=== PATIENT | female | born 1940 | race Caucasian/White ===

== ENCOUNTER 2020-02-24 23:20 | Emergency (ER) | payer MEDICARE, BC, SELFPAY ==
--- NOTE | ~2020-02-24 | XR_ITS ---
EXAMINATION: XR chest ET placement EXAM DATE: 02/25/2020 00:22 INDICATION: Endotracheal tube position. TECHNIQUE: Portable AP frontal chest x-ray was obtained. Comparison is made to prior examination from 02/24/2020. FINDINGS: Patient has been intubated. The endotracheal tube is at the dariela, should be retracted 2 cm. Both lungs are being aerated at present. There is a nasogastric tube seen with tip collimated off the study, but below the left hemidiaphragm. Moderately indistinct reticulation, likely developing edema and/or infection. Please clinically corre late. There are no sizable pleural effusions. There is no pneumothorax suspected. The cardiomedi astinal silhouette is prominent but magnified on this AP technique. The bones and soft tissues are unremarkable. The acute airspace process has demonstrated mild progression. IMPRESSION: 1. ET tube at dariela. If this was not positioned after reviewing this x-ray, recommend repeating por table chest x-ray at this time to reevaluate her in position. 2. Developing bilateral edema and/or infection. According to emergency room nurse, patient was taken to [facility]. Reviewed, dictated and finalized at location A. INE ASSISTANT IMPRESSION: 1. ET tube at dariela. If this was not positioned after reviewing this x-ray, r ecommend repeating portable chest x-ray at this time to reevaluate her in posit ion. 2. Developing bilateral edema and/or infection. According to emergency room nurse[facility]
--- NOTE | ~2020-02-24 | CT_ITS ---
EXAMINATION: CT brain wo con DATE: 02/24/2020 23:27 INDICATION: Stroke TECHNIQUE: Computed tomography (CT) of the head was performed without intravenous contrast. Sagittal and coronal reconstructions were performed. The mA was adjusted according to patient size. Iterative reconstruction technique was employed. The dose-length product was 681.00 mGy-cm. COMPARISON: None FINDINGS: Small region of cortical encephalomalacia consistent with chronic infarct in the posterior right fron angeles lobe. No acute intracranial hemorrhage, acute infarction or abnormal extra axial fluid collection . There is mild scattered white matter hypoattenuation consistent with chronic small vessel ischemic disease. Symmetric prominence of the sulci consistent with mild age-appropriate diffuse cerebral volu me loss. Ventricles are normal and symmetric. No mass/mass effect. Small mucous retention cyst in the left maxillary and left sphenoid sinuses. Mild mucosal thickening in the right maxillary and bilater al ethmoid sinuses. Changes of bilateral intraocular lens replacement. Mastoid air cells and middle e ar cavities are clear. Intracranial calcified cerebral atherosclerosis is noted. IMPRESSION: 1. No acute intracranial process. Per stroke protocol Dr. Hughes discussed these findings with Dr. Blas at 11:29 PM. 2. 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 3. Mild age-appropriate diffuse volume loss with mild scattered white matter hypoattenuation consiste nt with chronic small vessel ischemic disease. Reviewed, dictated and finalized at location A. D CARE SPECIALIST IMPRESSION: 1. No acute intracranial process. Per stroke protocol Dr. Hughes discussed th miguel findings with Dr. Blas at 11:29 PM. 2. 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 3. Mild age-appropriate diffuse volume loss with mild scattered white matter hy poattenuation consistent with chronic small vessel ischemic disease.
--- NOTE | ~2020-02-24 | XR_ITS ---
EXAMINATION: XR chest 1V portable DATE: 02/24/2020 23:47 INDICATION: Stroke TECHNIQUE: frontal view of the chest was obtained. COMPARISON: Chest radiograph dated 03/24/2005 FINDINGS: Patient is rotated towards the right. Focal small opacity lateral left lower lung zone and favor atel ectasis over pneumonia. No other airspace opacities, pulmonary edema, pleural effusion or pneumothora x. The cardiomediastinal silhouette is normal. IMPRESSION: 1. Small opacity at the left lower lung zone with appearance favoring atelectasis over pneumonia. Reviewed, dictated and finalized at location A. L MARKETING ASSISTANT IMPRESSION: 1. Small opacity at the left lower lung zone with appearance favoring atelectas is over pneumonia.
--- NOTE | ~2020-02-24 | XR_ITS ---
EXAMINATION: XR abdomen NG/feed tube insert EXAM DATE: 02/25/2020 00:22 INDICATION: Nasogastric tube. TECHNIQUE: Frontal projection(s) of the abdomen for interpretation. There is no prior study for raquel butt. FINDINGS: Feeding tube tip and side-port project over gastric body, expected position. Nonobstructive upper abdominal bowel gas pattern. IMPRESSION: Feeding tube in position. Reviewed, dictated and finalized at location A. ITURE MECHANIC IMPRESSION: Feeding tube in position.
--- NOTE | 2020-02-24 23:22 | ECG_ITS ---
Measurements Intervals [place] Rate: 84 P: IN: 0 QRS: 59 QRSD: 86 T: 108 QT: 380 QTc: 450 Interpretive Statements ATRIAL FIBRILLATION LOW QRS VOLTAGE IN PRECORDIAL LEADS BORDERLINE R WAVE PROGRESSION, ANTERIOR LEADS BASELINE ARTIFACT- I, II, III, AVR, AVL, AVF, V1-V3 ABNORMAL ECG Electronically Signed On 02-25-2020 6:49:59 CONTINUOUS PROCESS ROTARY DRUM TANNER by Juancarlos Carrizales D.O.
[2020-02-24 23:28] LABS: Glucose Point of Care 188 (65-105)
[2020-02-24 23:29] VITALS: BP 154/78; PULSE 76; RESP 18; TEMP 36.7; O2SAT 96
[2020-02-24 23:37] VITALS: BP 154/78; PULSE 81; RESP 16; O2SAT 97
--- NOTE | 2020-02-24 23:39 | ED.NEUROSD ---
HPI - Neuro Symptoms/Deficit General Chief Complaint: Suspected CVA Stated Complaint: CVA Source: family and EMS Mode of arrival: EMS Limitations: clinical condition History of Present Illness HPI Narrative: 79-year-old with a history of hypertension, diabetes, AF on Pradaxa was brought in from home with the complaints of left-sided weakness. As per the EMS patient was last known normal at 10:25 PM, was going down the stairs and stumbled and fell forward since then she has been weak on the left side. She has been aphasic with obvious right-sided gaze. Onset (ago): hour(s) (1) Timing confirmed by: spouse Location: left face, left arm and left leg History of same: Yes Severity: severe Quality: weak Relieving factors: none Exacerbating factors: none Context: sudden onset Related Data Allergies Allergy/AdvReac Type Severity Reaction Status Date / Time No Known Allergies Allergy Verified 02/25/20 00:14 Review of Systems Review of Systems: ROS unobtainable: Yes unobtainable due to mental status Exam Const: General: cooperative, alert and awake Nutritional Appearance: obese HENMT: Head: normal to inspection General nose exam: Normal external nose present Face and sinus: other (Left-sided facial droop with right-sided gaze) Mouth: Yes lip normal Teeth and gingiva: dentition normal Eyes: General: appearance normal, both eyes and all related structures Neck: Neck: normal visual inspection Chest: Chest palpation & inspection: normal inspection of the chest Resp: Effort & Inspection: normal respiratory effort Auscultation: clear to auscultation bilaterally Cardio: Jugular venous distension: no JVD Heart sounds: S1 normal heart sound present GI: Inspection: normal to inspection Auscultation: normal bowel sounds Course Course Emergency Course: Patient started having vomiting after she came back from CAT scan. Given IV Zofran in order to protect her airway decided to intubate the patient and discussed with Dr. [facility]. I discussed with neurologist recommended patient to be sent to the ER . Discussed and CT findings with the patient and the family agreed with transfer . Vital Signs Vital signs: Vital Signs Temperature 36.7 C 02/24/20 23:29 Pulse Rate 76 02/24/20 23:29 Respiratory Rate 18 02/24/20 23:29 Blood Pressure 154/78 H 02/24/20 23:29 Pulse Oximetry 96 02/24/20 23:29 Temperature 36.7 C 02/24/20 23:29 Pulse Rate 81 02/24/20 23:37 Respiratory Rate 16 02/24/20 23:37 Blood Pressure 154/78 H 02/24/20 23:37 Pulse Oximetry 97 02/24/20 23:37 Transfer Transfered to: [facility] Hospital Transportation: Air medical Transfer rationale: Patient needs acute intervention neck CTA of the head and neck for possible thrombectomy Accepting physician: lobar Procedures Intubation Intubation #1: Intubation Date: 02/25/20 Intubation Time: 00:18 sedative: Etomidate Mg Given: 20 paralytic: Succinylcholine Mg Given: 100 Laryngoscope: Siobhan (4) Tube Size (cm): 7.5 Method of Intubation: orotracheal Tube Secured Depth (cm): 23 Tube Secured Location: teeth Tube Placement Confirmation: visualized tube passing through cords Patient Tolerated Procedure: well Intubation Complications: none MDM - Neuro Symptoms/Deficit Differential Diagnosis Differential diagnosis: Unlikely carpal tunnel syndrome Lab Data Labs: Lab Results 02/24/20 Range/Units 23:23 POC Capillary Glucose 188 H (65-105) mg/dl Imaging Data Radiologist's impression: ITS Impressions Head CT 02/24/20 23:27 IMPRESSION: 1. No acute intracranial process. Per stroke protocol Dr. Hughes discussed these findings with Dr. Blas at 11:29 PM. 2. 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 3. Mild age-appropriate diffuse volume loss with mild scattered white matter hypoattenuation consistent with c
[2020-02-24 23:43] LABS: Basophils Percent Auto 0.7 % (0.2-1.2); Eosinophils Absolute Auto 0.3 K/mm3 (0-0.3); Eosinophils Percent Auto 4.6 % (0-4.4); Hematocrit 42.9 % (37.0-47.0); Hemoglobin 13.3 g/dL (12.0-15.0); Immature Granulocyte Absolute 0.01 K/mm3 (0.00-0.031); Immature Granulocyte Percent A 0.2 % (0-0.5); Lymphocytes Absolute Auto 1.51 K/mm3 (0.9-3.2); Lymphocytes Percent Auto 27.5 % (18.3-44.2); Mean Corpuscular Hemoglobin 26.8 pg (26-34); Mean Corpuscular Volume 86.5 fl (80-100); Mean Platelet Volume 10.6 fl (7.4-10.4); Monocytes Absolute Auto 0.5 K/mm3 (0.1-0.6); Monocytes Percent Auto 8.7 % (2.6-8.5); Neutrophils Absolute Auto 3.2 K/mm3 (1.3-6.7); Neutrophils Percent Auto 58.3 % (45.5-73.1); Platelet Count Result 197 k/mm3 (150-375); Red Blood Count 4.96 M/mm3 (4.2-5.4); Red Cell Distribution Width 14.5 % (11.5-14.5); White Blood Count 5.5 K/mm3 (4.5-10.0)
--- NOTE | 2020-02-24 23:43 | PC.NURSE ---
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
[2020-02-24 23:44] VITALS: BP 164/83; PULSE 83; RESP 16; O2SAT 95
[2020-02-24 23:53] LABS: INR 1.3; Prothrombin Time 16.3 Seconds (11.1-14.7)
[2020-02-24 23:54] LABS: Partial Thromboplastin Time 42.8 SECONDS (22.3-36.8)
[2020-02-24 23:56] LABS: Anion Gap 8 mmol/L (8-16); Blood Urea Nitrogen 20 mg/dL (7-17); Calcium 9.1 mg/dL (8.4-10.2); Carbon Dioxide 31 mmol/L (22-30); Chloride 99 mmol/L (98-107); Estimated CRCL calculation 63 ml/min; Estimated Glomerular Filt Rate > 60; Glucose 175 mg/dL (65-105); Potassium 4.5 mmol/L (3.4-5.0); Sodium 138 mmol/L (137-145)
--- NOTE | 2020-02-25 00:03 | PC.NURSE ---
0000- pt started vomiting, MD at bedside, pt to be intubated for airway protection.
--- NOTE | 2020-02-25 00:04 | PC.NURSE ---
0003 20mg etomidate given followed by 100md Succs. pt bagged and Dr. Mccann intubated on first try. 7.5 tube at 25 at the lips. pos color change on CO2 .
[2020-02-25] MEDS: ONDANSETRON INJ 4 MG/2 ML VIAL (00:07)
[2020-02-25 00:09] LABS: Troponin I < 0.012 ng/mL (0.000-0.034)
[2020-02-25] MEDS: MIDAZOLAM HCL (*CRX) 2 MG/2 ML VIAL 4 MG IV PUSH (00:17)
[2020-02-25] MEDS: RAPID SEQUENCE INTUBATION KIT 1 EACH (00:17)
--- NOTE | 2020-02-25 00:17 | PC.NURSE ---
Air transport team arrived, report called to Vandana Couch at [facility] ER, pt to be air evacted. meds given for sedation per Dr. Mccann.
[2020-02-25] MEDS: fentaNYL CITRATE INJ (*CRX) 100 MCG/2 ML VIAL 50 MCG IV PUSH (00:18)
--- NOTE | 2020-02-25 00:28 | PCRCNOTE ---
CALLED TO ED 7 FOR INTUBATION FOR AIRWAY PROTECTION. PT INTUBATED WITH 7.5 ETT, 26@LIP. POST CXR, ETT PULLED BACK TO 25CM AT LIP. AIREVAC PLACED PT ON THEIR TRANSPORT VENT.
[2020-02-25 00:40] VITALS: BP 181/98; PULSE 88; RESP 16; TEMP 36.7; O2SAT 97
== END 2020-02-25 00:42 | disposition short-term general hospital (02) ==
PROVIDERS: Emergency Provider Family Medicine; PCP Internal Medicine
DX: I63.9 Cerebral infarction, unspecified (principal); R29.718 NIHSS score 18; I10 Essential (primary) hypertension; E11.9 Type 2 diabetes mellitus without complications; Z79.02 Long term (current) use of antithrombotics/antiplatelets; I48.91 Unspecified atrial fibrillation; R94.31 Abnormal electrocardiogram [ECG] [EKG]; R91.8 Other nonspecific abnormal finding of lung field
CPT/HCPCS: 31500; 36415; 51702; 70450; 71045; 80048; 82948; 84484; 85025; 85610; 85730; 93005; 96374; 96375; 99291; J0330; J2250; J2405; J3010; J7030; J7120

== ENCOUNTER 2020-10-31 13:56 | Inpatient (IN) | payer MEDICARE, BC, SELFPAY ==
[2020-10-31] VITALS (11 sets, daily range): BP systolic 125–181; BP diastolic 66–96; PULSE 72–89; RESP 17–23; TEMP 36.4–36.7; O2SAT 94–100; BMI 34.7
--- NOTE | ~2020-10-31 | XR_ITS ---
EXAMINATION: XR chest 1V portable INDICATION: Shortness of breath TECHNIQUE: Portable AP chest at 0800 hours COMPARISON: 10/31/2020 FINDINGS: Cardiomegaly is noted. The lungs are free of acute opacities. There is no pleural effusion or pneumothorax. There is a questionable inferior dislocation of the left humeral head. IMPRESSION: 1. Cardiomegaly. 2. Possible inferior dislocation of the left humerus. Reviewed, dictated and finalized at location A.
--- NOTE | ~2020-10-31 | XR_ITS ---
EXAMINATION: XR chest 2V DATE: 10/31/2020 14:17 INDICATION: Cough and congestion TECHNIQUE: PA and lateral views of the chest are obtained. COMPARISON: 02/25/2020 FINDINGS: The lungs are free of acute opacities. There is no pleural effusion or pneumothorax. Cardio megaly is noted. The spine and lower lung zones are difficult to evaluate on the lateral view due to the patient's overlying arm. IMPRESSION: 1. Cardiomegaly. Reviewed, dictated and finalized at location B. IMPRESSION: 1. Cardiomegaly.
--- NOTE | ~2020-10-31 | XR_ITS ---
EXAMINATION: XR humerus LT DATE: 11/05/2020 09:59 INDICATION: Possible inferior dislocation of the left humerus. TECHNIQUE: Internal and axillary rotated views of the left humerus were obtained. COMPARISON: None. FINDINGS: Alignment is normal. No fracture. Moderate left acromioclavicular osteoarthritis. No left elbow joint effusion. Soft tissues are unremarkable. Visualized portion of the left lung are clear. IMPRESSION: 1. Normal alignment of the left shoulder. Appearance on prior chest radiograph likely related to watkins sient subluxation due to glenohumeral laxity. Reviewed, dictated and finalized at location A. IMPRESSION: 1. Normal alignment of the left shoulder. Appearance on prior chest radiograph likely related to transient subluxation due to glenohumeral laxity.
--- NOTE | ~2020-10-31 | CT_ITS ---
EXAMINATION: CTA chest PE protocol DATE: 10/31/2020 15:30 INDICATION: Shortness of breath, dyspnea, cough TECHNIQUE: Computed tomography angiography (CTA) of the chest was performed with 100 mL Omnipaque-350 intravenous contrast timed to evaluate the pulmonary arteries. Coronal maximum intensity projection 3D-reconstructions were created by the technologist. Automated exposure control and iterative reconst ruction technique were employed. Exam dose: 836.62 mGy-cm total exam DLP. COMPARISON: 10/31/2020 2 view chest FINDINGS: There is diagnostic contrast enhancement of the pulmonary arteries. No pulmonary embolus is identified. No thoracic aortic aneurysm or dissection. There is extensive thoracic aortic as well as some great v essel and prominent coronary artery calcifications. Cardiomegaly. Small amount of pericardial fluid. No hilar or mediastinal mass lesion or lymphadenopathy. There is atelectasis at the left lung base. Very small sliding hiatal hernia. Diffuse idiopathic skeletal hyperostosis of the thoracic spine. IMPRESSION: No evidence of pulmonary embolism Cardiomegaly Reviewed, dictated and finalized at [facility]. Reviewed, dictated and finalized at [facility].
--- NOTE | ~2020-10-31 | XR_ITS ---
EXAMINATION: XR barium swallow modified DATE: 11/02/2020 09:36 INDICATION: Dysphagia. Gurgling, cough. TECHNIQUE: The patient was given barium-containing material of multiple consistencies to swallow by leslie toth speech pathologist while I performed fluoroscopy. Dose-area product was 2.277 Gy-cm2. 2.5 minutes fluoroscopy time FINDINGS: Oral Stage: Within functional limits Pharyngeal Phase: Within functional limits Cervical/Esophageal Stage: Within functional limits IMPRESSION: Modified esophagram findings as above. Please refer to the speech [facility] report [facility] Reviewed, dictated and finalized at [facility]. Reviewed, dictated and finalized at [facility]. IMPRESSION: Modified esophagram findings as above. Please refer to the speech t herapy report for specific recommendations.
--- NOTE | 2020-10-31 14:02 | ECG_ITS ---
Measurements Intervals [place] Rate: 84 P: MT: 0 QRS: -10 QRSD: 75 T: -30 QT: 311 QTc: 369 Interpretive Statements ATRIAL FIBRILLATION BORDERLINE R WAVE PROGRESSION, ANTERIOR LEADS INFERIOR INFARCT, AGE INDETERMINATE ABNORMAL ECG Electronically Signed On 10-31-2020 14:48:39 CDT by Juancarlos Carrizales D.O.
[2020-10-31 14:49] LABS: Basophils Percent Auto 0.5 % (0.2-1.2); Eosinophils Absolute Auto 0.2 K/mm3 (0-0.3); Hematocrit 37.9 % (37.0-47.0); Immature Granulocyte Absolute 0.02 K/mm3 (0.00-0.031); Immature Granulocyte Percent A 0.3 % (0-0.5); Lymphocytes Absolute Auto 0.69 K/mm3 (0.9-3.2); Mean Corpuscular Hemoglobin 23.6 pg (26-34); Mean Corpuscular Volume 81.3 fl (80-100); Mean Platelet Volume 11.1 fl (7.4-10.4); Monocytes Absolute Auto 0.5 K/mm3 (0.1-0.6); Monocytes Percent Auto 8.9 % (2.6-8.5); Neutrophils Absolute Auto 4.3 K/mm3 (1.3-6.7); Neutrophils Percent Auto 75.3 % (45.5-73.1); Platelet Count Result 210 k/mm3 (150-375); Red Blood Count 4.66 M/mm3 (4.2-5.4); Red Cell Distribution Width 17.2 % (11.5-14.5); White Blood Count 5.7 K/mm3 (4.5-10.0)
--- NOTE | 2020-10-31 14:59 | ED.SOB ---
HPI - SOB/Dyspnea General Chief Complaint: Shortness of Breath/Dyspnea Stated Complaint: SOB Time Seen by Provider: 10/31/20 14:04 History of Present Illness HPI Narrative: Patient presents with shortness of breath. Reports she has had a sore throat for the past couple days which got progressively worse and associated with a cough. She reports she noticed a lot of rattling when she is breathing. She denies any focal areas of pain she denies any dizziness denies any chest pain she denies any lightheadedness or fevers. Reports prior history of CVA and has persistent left-sided weakness she denies any known history of difficulty swallowing or aspiration. Related Data Allergies Allergy/AdvReac Type Severity Reaction Status Date / Time No Known Allergies Allergy Verified 02/25/20 00:14 Review of Systems Review of Systems: CONSTITUTIONAL: Denies fever, chills, or sweats. EYES: Denies visual changes, redness, or discharge. ENT: Denies rhinorrhea, congestion, sore throat, or otalgia. CARDIOVASCULAR: Denies chest pain, palpitations, or edema. RESPIRATORY: Reports cough and dyspnea GASTROINTESTINAL: Denies abdominal pain, nausea, vomiting, or diarrhea. GENITOURINARY: Denies dysuria or hematuria. SKIN: Denies rash or itching. MUSCULOSKELETAL: Denies back pain, joint pain, or myalgia. NEUROLOGIC: Denies headache, numbness, dizziness, or weakness. PSYCHIATRIC: Denies anxiety or depression. All systems reviewed & are unremarkable except as noted in HPI and below Exam Narrative: GENERAL: Well-appearing, well-nourished, and in no acute distress. HEAD: Normocephalic, atraumatic. EYES: PERRLA and EOMI. ENT: Nares clear, no rhinorrhea or epistaxis. Mucous membranes moist. NECK: Supple. No masses. No JVD CHEST: Diffusely rhonchorous no respiratory distress no retractions HEART: Regular rate and rhythm. No murmur heard. Normal peripheral pulses. ABDOMEN: Soft, nontender, nondistended, normal active bowel sounds. EXTREMITIES: Normal range of motion. No edema. SKIN: Warm, dry, no rash. NEURO: No focal deficits. Alert and oriented x3. PSYCH: Normal mood and affect. Course Vital Signs Vital signs: Vital Signs Temperature 36.6 C 10/31/20 14:02 Pulse Rate 79 10/31/20 14:02 Respiratory Rate 23 H 10/31/20 14:02 Blood Pressure 125/88 10/31/20 14:02 Pulse Oximetry 95 10/31/20 14:02 Temperature 36.7 C 10/31/20 14:26 Pulse Rate 88 10/31/20 14:05 Respiratory Rate 23 H 10/31/20 14:02 Blood Pressure 181/96 H 10/31/20 14:26 Pulse Oximetry 95 10/31/20 14:06 MDM - SOB/Dyspnea Lab Data Result diagrams: 10/31/20 14:37 10/31/20 14:37 Labs: Lab Results 10/31/20 10/31/20 Range/Units 14:37 14:37 WBC Pending RBC Pending Hgb Pending Hct Pending MCV Pending MCH Pending MCHC Pending RDW Pending Plt Count Pending MPV Pending Immature Gran % (Auto) Pending Neut % (Auto) Pending Lymph % (Auto) Pending [place] % (Auto) Pending Eos % (Auto) Pending Baso % (Auto) Pending Lymph # (Auto) Pending [place] # (Auto) Pending Eos # (Auto) Pending Baso # (Auto) Pending Abs Immat Gran (auto) Pending Absolute Neuts (auto) Pending Absolute Nucleated RBC Pending Nucleated RBC % Pending Sodium Pending Potassium Pending Chloride Pending Carbon Dioxide Pending Anion Gap Pending BUN Pending Creatinine Pending Estim Creat Clear Calc Pending Estimated GFR Pending Glucose Pending Calcium Pending
[2020-10-31 15:00] LABS: Anion Gap 4 mmol/L (8-16); Blood Urea Nitrogen 17 mg/dL (7-17); Calcium 8.8 mg/dL (8.4-10.2); Carbon Dioxide 31 mmol/L (22-30); Chloride 105 mmol/L (98-107); Estimated CRCL calculation 70 ml/min; Estimated Glomerular Filt Rate > 60; Glucose 110 mg/dL (65-110); Potassium 3.9 mmol/L (3.4-5.0); Sodium 140 mmol/L (137-145)
--- NOTE | 2020-10-31 15:15 | ED.SOB ---
HPI - SOB/Dyspnea General Chief Complaint: Shortness of Breath/Dyspnea Stated Complaint: SOB Time Seen by Provider: 10/31/20 14:04 History of Present Illness HPI Narrative: Please see first note for HPI review of system and exam Related Data Allergies Allergy/AdvReac Type Severity Reaction Status Date / Time No Known Allergies Allergy Verified 02/25/20 00:14 Course Reevaluation(s) Reevaluation #1: Patient had no response to DuoNeb therapy she continues to have an oxygen requirement. Hospitalist team was consulted for hypoxia who admit for further management Date: 10/31/20 Time: 17:34 Vital Signs Vital signs: Vital Signs Temperature 36.6 C 10/31/20 14:02 Pulse Rate 79 10/31/20 14:02 Respiratory Rate 23 H 10/31/20 14:02 Blood Pressure 125/88 10/31/20 14:02 Pulse Oximetry 95 10/31/20 14:02 Temperature 36.7 C 10/31/20 14:26 Pulse Rate 83 10/31/20 18:00 Respiratory Rate 20 10/31/20 18:00 Blood Pressure 146/66 H 10/31/20 18:00 Pulse Oximetry 100 10/31/20 18:00 MDM - SOB/Dyspnea MDM Narrative Medical decision making narrative: H&P as above, vs with hypoxia and increased respiratory rate, pt looks clinically well, exam with diffuse rhonchi, labs with elevated BNP, img with cardiomegaly, additional labs/img considered, symptomatic relief available as needed, on reevaluation pt continues to looks clinically well however continues to have an increased oxygen requirement. With elevated BNP imaging with cardiomegaly and hypoxia primary concern is for new onset CHF. Patient admitted for further management. Lab Data Result diagrams: 10/31/20 14:37 10/31/20 14:37 Labs: Lab Results 10/31/20 10/31/20 10/31/20 Range/Units 14:37 14:37 14:37 WBC 5.7 (4.5-10.0) K/mm3 RBC 4.66 (4.2-5.4) M/mm3 Hgb 11.0 L (12.0-15.0) g/dL Hct 37.9 (37.0-47.0) % MCV 81.3 (80-100) fl MCH 23.6 L (26-34) pg MCHC 29.0 L (32-36) g/dl RDW 17.2 H (11.5-14.5) % Plt Count 210 (150-375) k/mm3 MPV 11.1 H (7.4-10.4) fl Immature Gran % (Auto) 0.3 (0-0.5) % Neut % (Auto) 75.3 H (45.5-73.1) % Lymph % (Auto) 12.0 L (18.3-44.2) % [place] % (Auto) 8.9 H (2.6-8.5) % Eos % (Auto) 3.0 (0-4.4) % Baso % (Auto) 0.5 (0.2-1.2) % Lymph # (Auto) 0.69 L (0.9-3.2) K/mm3 [place] # (Auto) 0.5 (0.1-0.6) K/mm3 Eos # (Auto) 0.2 (0-0.3) K/mm3 Baso # (Auto) 0.0 (0.0-0.1) K/mm3 Abs Immat Gran (auto) 0.02 (0.00-0.031) K/mm3 Absolute Neuts (auto) 4.3 (1.3-6.7) K/mm3 Absolute Nucleated RBC 0.0 (0.0-0.012) K/mm3 Nucleated RBC % 0.0 (0.0-0.2) % Platelet Estimate Adequate (Adequate) Hypochromasia 1+ (NORMAL) Anisocytosis 2+ (NORMAL) PT 16.5 H (11.1-14.7) Seconds INR 1.4 APTT 39.6 H (22.3-36.8) SECONDS Sodium 140 (137-145) mmol/L Potassium 3.9 (3.4-5.0) mmol/L Chloride 105 (98-107) mmol/L Carbon Dioxide 31 H (22-30) mmol/L Anion Gap 4 L (8-16) mmol/L BUN 17 (7-17) mg/dL Creatinine 0.60 L (0.7-1.0) mg/dL Estim Creat Clear Calc 70 ml/min Estimated GFR > 60 (59 - ) Glucose 110 (65-110) mg/dL Calcium 8.8 (8.4-10.2) mg/dL Total Bilirubin (0.2-1.3) mg/dL Direct Bilirubin (0-0.3) mg/dL AST (14-36) U/L ALT (4-35) U/L Alkaline Phosphatase (38-126) U/L Troponin I (0.000-0.034) ng/mL NT-Pro-B Natriuret Pep (5-100) pg/mL Total Protein (6.3-8.2) g/dL Albumin (3.5-5.1) g/dL 10/31/20 10/31/20 Range/Units 14:37 17:49 WBC (4.5-10.0) K/mm3 RBC (4.2-5.4) M/mm3 Hgb (12.0-15.0) g/dL Hct (37.0-47.0) % MCV (80-100) fl MCH (26-34) pg MCHC (32-36) g/dl RDW (11.5-14.5) % Plt Count (150-375) k/mm3 MPV (7.4-10.4) fl Immature Gran % (Auto) (0-0.5) % Neut % (Auto) (45.5-73.1) % Lymph % (Auto) (18.3-44.2) % [place] % (Auto) (2.6-8.5) % Eos % (Auto)
[2020-10-31 15:20] LABS: Hypochromasia 1+ (NORMAL); Platelet Estimate Adequate (Adequate)
[2020-10-31 15:21] LABS: Anisocytosis 2+ (NORMAL)
[2020-10-31 15:53] LABS: Alanine Aminotransferase 12 U/L (4-35); Albumin Level 3.5 g/dL (3.5-5.1); Alkaline Phosphatase 110 U/L (38-126); Aspartate Amino Transferase 23 U/L (14-36); Bilirubin,Total 0.5 mg/dL (0.2-1.3)
[2020-10-31 16:05] LABS: NT Pro B Type Natriuretic Pept 849 pg/mL (5-100); Troponin I < 0.012 ng/mL (0.000-0.034)
[2020-10-31] MEDS: ALBUTEROL SULFATE NEB 2.5 MG/0.5 ML INH 5 MG INHALATION (16:29)
[2020-10-31] MEDS: IPRATROPIUM BR 0.02% INH SOLN 0.5 MG/2.5 ML VIAL INHALATION (16:29)
[2020-10-31 17:02] LABS: INR 1.4; Prothrombin Time 16.5 Seconds (11.1-14.7)
[2020-10-31 17:03] LABS: Partial Thromboplastin Time 39.6 SECONDS (22.3-36.8)
[2020-10-31] MEDS: FUROSEMIDE INJ 40 MG/4 ML VIAL IV PUSH (18:00)
[2020-10-31 18:18] LABS: Troponin I < 0.012 ng/mL (0.000-0.034)
--- NOTE | 2020-10-31 21:37 | PM.IMHP ---
H&P: HPI History of Present Illness Date/Time: 10/31/20 20:15 Chief Complaint: Rattling in my chest Narrative: 80-year-old female with past medical history of prior tobacco abuse obstructive sleep apnea, hypertension, hyperlipidemia, and CVA with left-sided hemiplegia who presented to the ER from home via EMS due to rattling in her chest. She denies a past medical history of CHF or COPD but did have a prior 44 part per year smoking history. She reports 3 days of feeling rattling in her chest. She had a cough productive of abdi to greenish sputum. She denies any fevers or chills. She denies any recent ill contacts. She denies any chest pain or palpitations. She has not noticed any increased lower extremity swelling. She is bedbound chronically since she was discharged home in April following her CVA in February. She does note some dysuria after [place] catheter was placed in the ER. She uses a bedpan at home. she reports that she has only been having bowel movements every 5 days. She denies any abdominal pain, hematochezia or melena. She denies any nausea or vomiting. She has not noticed any difficulty with his swallowing, coughing or choking while eating. Review of Systems Review of Systems: 12 systems were reviewed with pertinent positives and negatives per HPI. Except as documented in the HPI, all other systems were reviewed and are negative. 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 Kevon Carvalho Code status: Full code Surrogate decision maker: Smoking packs per day: 1 Smoking cigarettes per day: 20.0 Years smoked: 44 Smoking pack-years: 44.00 Smoking status: Former smoker Tobacco type: cigarettes Alcohol intake: never Substance use: never Living arrangements: with family Additional living arrangements comments: The patient lives at home with her of 59 years. She is bed-bound since her stroke in February 2020. They have 2 children are healthy. 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 Spiritual care concerns: No Meds Home Medications and Allergies Home Medications Medication Instructions Recorded Confirmed Type apixaban [Eliquis] 5 mg PO BID 10/31/20 10/31/20 History aspirin 81 mg PO DAILY 10/31/20 10/31/20 History atorvastatin 10 mg PO DAILY 10/31/20 10/31/20 History baclofen 10 mg PO TID 10/31/20 10/31/20 History famotidine 40 mg PO DAILY 10/31/20 10/31/20 History fluoxetine 40 mg PO DAILY 10/31/20 10/31/20 History gabapentin 100 mg PO TID 10/31/20 10/31/20 History insulin glargine [Lantus Solostar 35 unit SUBCUT DAILY 10/31/20 10/31/20 History U-100 Insulin] levothyroxine 50 mcg PO DAILY 10/31/20 10/31/20 History lisinopril 40 mg PO DAILY 10/31/20 10/31/20 History metoprolol tartrate 12.5 mg PO BID 10/31/20 10/31/20 History ramelteon 8 mg PO HS 10/31/20 10/31/20 History spironolactone 12.5 mg PO DAILY 10/31/20 10/31/20 History Allergies Allergy/AdvReac Type Severity Reaction Status Date / Time No Known Allergies Allergy Verified 02/25/20 00:14 Vital Signs Vital Signs - 24 hr 10/31/20 14:02 10/31/20 14:05 10/31/20 14:06 Temperature 97.9 F Pulse Rate
--- NOTE | 2020-10-31 21:42 | ADMGEN ---
This patient, Kristy Cook, was admitted to Medical Room 346-01. Patient/family oriented to hospital policies and general routines including ID bracelet, bed and alarms, visiting hours, pain management, procedures, bathroom and other care routines, personal items, smoking policy, room service/diet, and visiting hours. Information on how to activate the Rapid Response Team has been discussed. Patient/Family are encouraged to report perceived risks to care and to ask questions if they do not understand what they are told or what they should do.
[2020-10-31 22:05] LABS: Glucose Point of Care 144 mg/dl (65-105)
[2020-10-31] MEDS: METOPROLOL TARTRATE 12.5 MG TABLET PO (23:07)
[2020-10-31] MEDS: APIXABAN 5 MG TABLET PO (23:07)
[2020-11-01] VITALS (12 sets, daily range): BP systolic 148–152; BP diastolic 61–88; PULSE 78–90; RESP 18–19; TEMP 36.7–37.2; O2SAT 92–97; BMI 34.7
--- NOTE | 2020-11-01 | ECHO_ITS ---
Patient Info Name: Kristy Cook Age: 80 years : 1940 Gender: Female Ht: 64 in Wt: 201 lbs BSA: 2.07 m2 HR: 85 bpm BP: 151 / 84 mmHg Heart Rhythm: Atrial Fibrillation Exam Date: 11/01/2020 11:43 AM Exam Location: [facility] Patient Status: Inpatient Admit Date: 10/31/2020 Staff Ordering Physician: Tatyana Farah PA-C Pilot Plant Operator: Erik Mccarty RDCS, RT Attending Provider: Tatyana Farah PA-C Exam Type: CA echo doppler color flow Study Info Complete two-dimensional, color flow and Doppler transthoracic echocardiogram is performed. Strain analysis performed. Summary 1. Complete two-dimensional, color flow and Doppler transthoracic echocardiogram is performed. 2. Technically difficult study with limited views. Regional wall motion assessment limited due to poor endomyocardial border definition in several views. 3. Left ventricular chamber dimension is normal. 4. Left ventricular systolic function is normal, estimated at 55-60%. 5. There is mildly increased left ventricular wall thickness. 6. There is mild to moderate aortic valve stenosis with a peak velocity of 181 cm/s, mean gradient of 7 mmHg, and aortic valve area of 1.4 cm2. 7. There is trace tricuspid valve regurgitation. 8. Unable to estimate PA systolic pressure due to poor spectral resolution of tricuspid regurgitant jet velocity. Left Ventricle Technically difficult study with limited views. Regional wall motion assessment limited due to poor endomyocardial border definition in several views. Left ventricular chamber dimension is normal. Left ventricular systolic function is normal, estimated at 55-60%. There is mildly increased left ventricular wall thickness. The left ventricular diastolic function is indeterminate. Global longitudinal strain is moderately elevated at -7 %. Right Ventricle Right ventricular chamber dimension is normal. Right ventricular systolic function is normal. Left Atria Left atrial chamber dimension is normal. Right Atria Right atrial chamber dimension is normal. Aortic Valve The aortic valve is not well visualized. There is mild to moderate aortic valve stenosis with a peak velocity of 181 cm/s, mean gradient of 7 mmHg, and aortic valve area of 1.4 cm2. There is no aortic valve regurgitation. There is mild aortic valve calcification. Pulmonic Valve The pulmonic valve is not well visualized. Mitral Valve The mitral valve has normal leaflets. There is trace mitral valve regurgitation. Tricuspid Valve The tricuspid valve leaflets are normal. There is trace tricuspid valve regurgitation. Unable to estimate PA systolic pressure due to poor spectral resolution of tricuspid regurgitant jet velocity. Pericardium/Pleural The pericardium appears normal. There is trivial pericardial effusion. Inferior Vena Cava Normal inferior vena cava with <50% collapse upon inspiration consistent with elevated right atrial pressure, 10 mmHg. Aorta The aortic root size at the sinus of Valsalva is normal. Left Ventricular Outflow Tract Name Value Normal LVOT 2D LVOT Diameter 2.0 cm LVOT Doppler LVOT Peak
[2020-11-01] MEDS: LEVOTHYROXINE SODIUM 50 MCG TABLET PO (06:19)
[2020-11-01 07:57] LABS: Glucose Point of Care 120 mg/dl (65-105)
[2020-11-01] MEDS: FAMOTIDINE 20 MG TABLET 40 MG PO (08:15)
[2020-11-01] MEDS: FLUoxetine HCL 20 MG CAPSULE 40 MG PO (08:16)
[2020-11-01] MEDS: lisinopriL 20 MG TABLET 40 MG PO (08:19)
[2020-11-01] MEDS: GABAPENTIN 100 MG CAPSULE PO ×3 (08:20→18:04)
[2020-11-01] MEDS: BACLOFEN 10 MG TABLET PO ×3 (08:20→18:04)
[2020-11-01] MEDS: ASPIRIN 81 MG ENTERIC TABLET PO (08:20)
[2020-11-01] MEDS: ATORVASTATIN 10 MG TABLET PO (08:20)
[2020-11-01] MEDS: APIXABAN 5 MG TABLET PO ×2 (08:21→20:57)
[2020-11-01] MEDS: SPIRONOLACTONE 12.5 MG TABLET PO (08:21)
[2020-11-01] MEDS: METOPROLOL TARTRATE 12.5 MG TABLET PO ×2 (08:22→20:57)
[2020-11-01] MEDS: INSULIN GLARGINE (*BKC) 100 UNITS/ML 25 UNITS SUB-Q (08:31)
[2020-11-01 12:44] LABS: Glucose Point of Care 122 mg/dl (65-105)
--- NOTE | 2020-11-01 15:46 | PM.IMPN ---
Progress Note: A&P Assessment and Plan (1) Dyspnea: Qualifiers: Dyspnea type: shortness of breath Qualified Code(s): R06.02 - Shortness of breath Code(s): R06.00 - Dyspnea, unspecified Status: Acute Assessment and Plan: Presented with dyspnea and rattling in chest. Symptomatic improvement with Lasix, suggestive of CHF, however echo reviewed with normal EF 55-60% Persistent upper airway gurgling concerning for aspiration. She is at high risk for aspiration given her CVA. Will obtain MBS CXR and CTA without opacities or other findings to suggest infection. She is afebrile without leukocytosis. She has required 2 L supplemental O2, though no episodes of hypoxia have been documented. Currently on 0.5 L. Wean as tolerated with goal saturation 92% or above. The patient does have obstructive sleep apnea for which she refuses CPAP. (2) Diabetes mellitus: Qualifiers: Diabetes mellitus type: type 2 Diabetes mellitus jail insulin use: with jail use Diabetes mellitus complication status: with hypoglycemia Diabetes mellitus complication detail: without coma Qualified Code(s): E11.649 - Type 2 diabetes mellitus with hypoglycemia without coma; Z79.4 - [facility] (current) use of insulin Code(s): E11.9 - Type 2 diabetes mellitus without complications Status: Acute Assessment and Plan: Last A1c unknown. Blood sugars reviewed and have been fairly well controlled in the 120s. Reports episodes of hypoglycemia at home with fasting glucose in the 40s-50s. Lantus has been decreased to 25 units daily Continue Accu-Cheks, sliding scale insulin, and hypoglycemic protocol Check A1c (3) Atrial fibrillation: Code(s): I48.91 - Unspecified atrial fibrillation Status: Inactive Assessment and Plan: Rate is controlled Continue metoprolol 12.5 mg b.i.d. Continue Eliquis Subjective Date/time seen: 11/01/20 15:46 Interval history: Date of service: 11/01/2020 Kristy Cook is a 72-year-old female with history of atrial fibrillation on chronic anticoagulation, CVA with left-sided hemiplegia, diabetes mellitus, hypertension, hyperlipidemia, hypothyroidism, and BARRY who is seen in follow-up for dyspnea. She complains of gurgling in her throat. She has been coughing frequently and reports yellow-green sputum. Denies shortness of breath or chest pain. No nausea, vomiting, fever, or chills. No issues with her Guaman catheter. Denies abdominal pain. Denies dizziness or lightheadedness. Spoke with RN he reports she has been doing well with her meals. She is able to eat with assistance, no coughing or choking with meals. Review of Systems Review of Systems: All systems reviewed & are unremarkable except as noted in HPI and below Exam Narrative: Ms Cook is a well-nourished, chronically ill-appearing 80-year-old female who is lying supine in bed. She appears comfortable and is in NARD. Neuro: awake, alert and oriented x4, speech clear, left upper extremity is flaccid, decreased seam stay stitcher strength of right upper extremity HEENMT: normocephalic, atraumatic, EOMI, sclerae anicteric, moist oral mucosa, tongue midline, nares patent Neck: supple, no lymphadenopathy Respiratory: Gurgling in upper airway, lung sounds clear bilaterally, nonlabored breathing Cardio: regular rate, regular rhythm with S1-S2 Abdomen: nondistended, normoactive bowel sounds, soft, nontender to palpation : Guaman catheter patent draining straw-colored urine Extremities: no edema, erythema, or tenderness to palpation, DP pulses 2+ bilaterally Skin: no rashes or lesions, warm and dry Psych: appropriate mood and affect, judgment and insight intact Objective Data Vital Signs Vital Signs: Vital Signs - 24 hr 10/31/20 16:29 10/31/20 16:40 10/31/20 18:00 Temperature Pulse Rate 81 79 83 Respiratory Rate 20 23 H 20 Blood Pressure 146/66 H Pulse Oximetry 100 10/31
[2020-11-01 17:40] LABS: Glucose Point of Care 132 mg/dl (65-105)
[2020-11-01 20:46] LABS: Glucose Point of Care 127 mg/dl (65-105)
[2020-11-02] VITALS (10 sets, daily range): BP systolic 147–162; BP diastolic 83–92; PULSE 80–97; RESP 18–20; TEMP 35.9–37.1; O2SAT 96–99
[2020-11-02] MEDS: LEVOTHYROXINE SODIUM 50 MCG TABLET PO (05:34)
[2020-11-02 06:13] LABS: Hemoglobin 10.9 g/dL (12.0-15.0); Mean Corpuscular HGB Conc 30.3 g/dl (32-36); Mean Corpuscular Hemoglobin 23.9 pg (26-34); Mean Corpuscular Volume 78.9 fl (80-100); Mean Platelet Volume 11.2 fl (7.4-10.4); Platelet Count Result 208 k/mm3 (150-375); Red Blood Count 4.56 M/mm3 (4.2-5.4); Red Cell Distribution Width 16.9 % (11.5-14.5); White Blood Count 5.5 K/mm3 (4.5-10.0)
[2020-11-02 06:23] LABS: Anion Gap 5 mmol/L (8-16); Blood Urea Nitrogen 20 mg/dL (7-17); Calcium 8.7 mg/dL (8.4-10.2); Carbon Dioxide 30 mmol/L (22-30); Chloride 101 mmol/L (98-107); Estimated CRCL calculation 85 ml/min; Estimated Glomerular Filt Rate > 60; Glucose 104 mg/dL (65-110); Potassium 3.5 mmol/L (3.4-5.0); Sodium 136 mmol/L (137-145)
[2020-11-02 06:42] LABS: Hemoglobin A1C 5.2 % (<5.7)
[2020-11-02 07:34] LABS: Glucose Point of Care 107 mg/dl (65-105)
[2020-11-02] MEDS: FAMOTIDINE 20 MG TABLET 40 MG PO (08:02)
[2020-11-02] MEDS: ATORVASTATIN 10 MG TABLET PO (08:02)
[2020-11-02] MEDS: APIXABAN 5 MG TABLET PO ×2 (08:02→20:43)
[2020-11-02] MEDS: METOPROLOL TARTRATE 12.5 MG TABLET PO ×2 (08:02→20:48)
[2020-11-02] MEDS: SPIRONOLACTONE 12.5 MG TABLET PO (08:02)
[2020-11-02] MEDS: lisinopriL 20 MG TABLET 40 MG PO (08:02)
[2020-11-02] MEDS: GABAPENTIN 100 MG CAPSULE PO ×2 (08:03→17:13)
[2020-11-02] MEDS: BACLOFEN 10 MG TABLET PO ×2 (08:03→17:13)
[2020-11-02] MEDS: FLUoxetine HCL 20 MG CAPSULE 40 MG PO (08:03)
[2020-11-02] MEDS: INSULIN GLARGINE (*BKC) 100 UNITS/ML 25 UNITS SUB-Q (08:10)
[2020-11-02] MEDS: ASPIRIN 81 MG ENTERIC TABLET PO (08:11)
--- NOTE | 2020-11-02 08:58 | PC.NURSE ---
Patient taken down for a barium swallow study.
--- NOTE | 2020-11-02 09:25 | PCSTNOTE ---
Please refer to the Modified Barium Swallow Evaluation in the EMR.
[2020-11-02 11:39] LABS: Glucose Point of Care 194 mg/dl (65-105)
--- NOTE | 2020-11-02 15:55 | PM.IMPN ---
Progress Note: A&P Assessment and Plan (1) Dyspnea: Qualifiers: Dyspnea type: shortness of breath Qualified Code(s): R06.02 - Shortness of breath Code(s): R06.00 - Dyspnea, unspecified Status: Acute Assessment and Plan: Improved with with Lasix, suggestive of CHF, however echo reviewed with normal EF 55-60% Concern for aspiration S/p MBS with negative results CXR and CTA with no acute disease, afebrile without leukocytosis Now on RA The patient does have obstructive sleep apnea for which she refuses CPAP (2) Diabetes mellitus: Qualifiers: Diabetes mellitus type: type 2 Diabetes mellitus senior living insulin use: with senior living use Diabetes mellitus complication status: with hypoglycemia Diabetes mellitus complication detail: without coma Qualified Code(s): E11.649 - Type 2 diabetes mellitus with hypoglycemia without coma; Z79.4 - half-way (current) use of insulin Code(s): E11.9 - Type 2 diabetes mellitus without complications Status: Acute Assessment and Plan: Hgb A1c 5.2 Reported episodes of hypoglycemia at home with fasting glucose in the 40s-50s Lantus has been decreased to 25 units daily Continue Accu-Cheks, sliding scale insulin, and hypoglycemic protocol Monitor (3) Atrial fibrillation: Code(s): I48.91 - Unspecified atrial fibrillation Status: Inactive Assessment and Plan: Rate is controlled Continue metoprolol 12.5 mg b.i.d and Eliquis Monitor Additional Plan Continue d/c planning with CC Subjective Date/time seen: 11/02/20 15:55 Interval history: pt seen and evaluated; no acute events overnight, denies any SOB or CP Review of Systems Review of Systems: All systems reviewed & are unremarkable except as noted in HPI and below Exam Const: General: no acute distress, alert and awake Orientation/consciousness: patient oriented x3 HENMT: Head: normocephalic and atraumatic Ears: hearing grossly normal bilaterally and external ears normal Face and sinus: face symmetric Mouth: Yes Normal oral and palatal mucosa present Eyes: Pupils: Equal, round and reactive pupils present EOM: EOMs intact bilaterally Neck: Neck: full ROM, trachea midline and no JVD Thyroid: thyroid normal Chest: Chest palpation & inspection: normal inspection of the chest Resp: Effort & Inspection: normal respiratory effort Auscultation: clear to auscultation bilaterally Cardio: Jugular venous distension: no JVD Rate: regular rate Rhythm: regular rhythm Heart sounds: S1 normal heart sound present and S2 normal heart sound present GI: Inspection: normal to inspection GI Palp: Yes Soft to palpation Percussion: Yes normal to percussion Auscultation: normal bowel sounds : General: Yes no CVA tenderness Back/Spine/Pelvis: Back: no CVA tenderness Skin: General skin exam: normal color Rashes: no rashes Neuro: General: patient oriented x3 Speech: normal speech Motor exam (neuro): Other motor observations present (left sided paralysis) Psych: Appearance: grossly normal Affect: normal affect Judgement: Good judgement present (Psych) Objective Data Vital Signs Vital Signs: Vital Signs - 24 hr 11/01/20 16:00 11/01/20 19:44 11/01/20 20:00 Temperature 36.7 C Pulse Rate 81 87 90 Respiratory Rate 19 Blood Pressure 148/88 H Pulse Oximetry 97 11/01/20 20:50 11/01/20 20:57 11/02/20 00:00 Temperature Pulse Rate 82 87 Respiratory Rate Blood Pressure Pulse Oximetry 97 11/02/20 04:00 11/02/20 04:28 11/02/20 08:00 Temperature 36.2 C L Pulse Rate 89 84 93 Respiratory Rate 18 Blood Pressure 147/88 H Pulse Oximetry 97 11/02/20 08:02 11/02/20 14:00 Temperature 35.9 C L Pulse Rate 80 84 Respiratory Rate 18 Blood Pressure 162/92 H Pulse Oximetry 99 Intake/Output Intake/Output: Intake & Output 10/30/20 10/31/20 11/01/20 11/02/20 23:59 23:59 23:59 23:59 Intake Total 880 530
[2020-11-02 16:50] LABS: Glucose Point of Care 154 mg/dl (65-105)
[2020-11-02 21:17] LABS: Glucose Point of Care 154 mg/dl (65-105)
[2020-11-03] VITALS (11 sets, daily range): BP systolic 138–159; BP diastolic 62–77; PULSE 78–96; RESP 14–18; TEMP 35.4–36.3; O2SAT 93–96
[2020-11-03] MEDS: LEVOTHYROXINE SODIUM 50 MCG TABLET PO (05:55)
[2020-11-03] MEDS: GABAPENTIN 100 MG CAPSULE PO ×3 (08:00→17:01)
[2020-11-03 08:01] LABS: Glucose Point of Care 117 mg/dl (65-105)
[2020-11-03] MEDS: ATORVASTATIN 10 MG TABLET PO (08:01)
[2020-11-03] MEDS: METOPROLOL TARTRATE 12.5 MG TABLET PO ×2 (08:01→20:12)
[2020-11-03] MEDS: BACLOFEN 10 MG TABLET PO ×3 (08:01→17:01)
[2020-11-03] MEDS: ASPIRIN 81 MG ENTERIC TABLET PO (08:01)
[2020-11-03] MEDS: FLUoxetine HCL 20 MG CAPSULE 40 MG PO (08:02)
[2020-11-03] MEDS: SPIRONOLACTONE 12.5 MG TABLET PO (08:02)
[2020-11-03] MEDS: lisinopriL 20 MG TABLET 40 MG PO (08:02)
[2020-11-03] MEDS: FAMOTIDINE 20 MG TABLET 40 MG PO (08:02)
[2020-11-03] MEDS: APIXABAN 5 MG TABLET PO ×2 (08:02→20:12)
[2020-11-03] MEDS: INSULIN GLARGINE (*BKC) 100 UNITS/ML 25 UNITS SUB-Q (08:09)
--- NOTE | 2020-11-03 09:50 | PM.IMPN ---
Progress Note: A&P Assessment and Plan (1) Dyspnea: Qualifiers: Dyspnea type: shortness of breath Qualified Code(s): R06.02 - Shortness of breath Code(s): R06.00 - Dyspnea, unspecified Status: Acute Assessment and Plan: Improved with with Lasix, suggestive of CHF, however echo reviewed with normal EF 55-60% Concern for aspiration S/p MBS with negative results CXR and CTA with no acute disease, afebrile without leukocytosis Now on RA The patient does have obstructive sleep apnea for which she refuses CPAP Wean O2 Will check viral resp cult and SC (2) Diabetes mellitus: Qualifiers: Diabetes mellitus type: type 2 Diabetes mellitus rat exterminator insulin use: with rat exterminator use Diabetes mellitus complication status: with hypoglycemia Diabetes mellitus complication detail: without coma Qualified Code(s): E11.649 - Type 2 diabetes mellitus with hypoglycemia without coma; Z79.4 - 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 (current) use of insulin Code(s): E11.9 - Type 2 diabetes mellitus without complications Status: Acute Assessment and Plan: Hgb A1c 5.2 Reported episodes of hypoglycemia at home with fasting glucose in the 40s-50s Lantus has been decreased to 25 units daily Continue Accu-Cheks, sliding scale insulin, and hypoglycemic protocol Monitor (3) Atrial fibrillation: Code(s): I48.91 - Unspecified atrial fibrillation Status: Inactive Assessment and Plan: Rate is controlled Continue metoprolol 12.5 mg b.i.d and Eliquis Monitor Additional Plan Continue d/c planning with CC Subjective Date/time seen: 11/03/20 09:50 Interval history: pt seen and evaluated; no acute events overnight, denies any SOB or CP; complains of cough with some yellow sputum Review of Systems Review of Systems: All systems reviewed & are unremarkable except as noted in HPI and below Exam Const: General: no acute distress, alert and awake Orientation/consciousness: patient oriented x3 HENMT: Head: normocephalic and atraumatic Ears: hearing grossly normal bilaterally and external ears normal Face and sinus: face symmetric Mouth: Yes Normal oral and palatal mucosa present Eyes: Pupils: Equal, round and reactive pupils present EOM: EOMs intact bilaterally Neck: Neck: full ROM, trachea midline and no JVD Thyroid: thyroid normal Chest: Chest palpation & inspection: normal inspection of the chest Resp: Effort & Inspection: normal respiratory effort Auscultation: clear to auscultation bilaterally Cardio: Jugular venous distension: no JVD Rate: regular rate Rhythm: regular rhythm Heart sounds: S1 normal heart sound present and S2 normal heart sound present GI: Inspection: normal to inspection GI Palp: Yes Soft to palpation Percussion: Yes normal to percussion Auscultation: normal bowel sounds : General: Yes no CVA tenderness Back/Spine/Pelvis: Back: no CVA tenderness Skin: General skin exam: normal color Rashes: no rashes Neuro: General: patient oriented x3 and CN's II-XI intact bilaterally Cranial nerves: Yes Bilaterally intact EOM present Speech: normal speech Motor exam (neuro): Other motor observations present (left sided paralysis) Psych: Appearance: grossly normal Affect: normal affect Judgement: Good judgement present (Psych) Objective Data Vital Signs Vital Signs: Vital Signs - 24 hr 11/02/20 14:00 11/02/20 16:00 11/02/20 20:40 Temperature 35.9 C L Pulse Rate 84 88 97 Respiratory Rate 18 Blood Pressure 162/92 H Pulse Oximetry 99 96 11/02/20 20:48 11/02/20 20:52 11/03/20 00:00 Temperature 37.1 C Pulse Rate 97 97 80 Respiratory Rate 20 Blood Pressure 148/83 H Pulse Oximetry 96 11/03/20 04:00 11/03/20 06:00 11/03/20 08:01 Temperature 36.3 C L Pulse Rate 86 90 94 Respiratory Rate 18 Blood Pressure 138/77 Pulse Oximetry 93 Intake/Output Intake/Output: Intake & Output 10/31/20 11/01/20 11/02/20 11/03/20
[2020-11-03 12:23] LABS: Glucose Point of Care 142 mg/dl (65-105)
[2020-11-03] MEDS: guaiFENesin 12 HR 600 MG TABCR PO (12:58)
[2020-11-03 17:18] LABS: Glucose Point of Care 133 mg/dl (65-105)
[2020-11-03 20:32] LABS: Glucose Point of Care 256 mg/dl (65-105)
[2020-11-03] MEDS: ACETAMINOPHEN 325 MG TABLET 650 MG PO (22:26)
[2020-11-04] VITALS (11 sets, daily range): BP systolic 117–140; BP diastolic 57–65; PULSE 78–97; RESP 16–18; TEMP 35.9–36; O2SAT 94–95
[2020-11-04] MEDS: LEVOTHYROXINE SODIUM 50 MCG TABLET PO (05:52)
[2020-11-04 08:46] LABS: Glucose Point of Care 112 mg/dl (65-105)
[2020-11-04] MEDS: BACLOFEN 10 MG TABLET PO ×3 (09:52→18:43)
[2020-11-04] MEDS: SPIRONOLACTONE 12.5 MG TABLET PO (09:52)
[2020-11-04] MEDS: APIXABAN 5 MG TABLET PO ×2 (09:52→20:14)
[2020-11-04] MEDS: GABAPENTIN 100 MG CAPSULE PO ×3 (09:52→18:43)
[2020-11-04] MEDS: ASPIRIN 81 MG ENTERIC TABLET PO (09:52)
[2020-11-04] MEDS: lisinopriL 20 MG TABLET 40 MG PO (09:52)
[2020-11-04] MEDS: ATORVASTATIN 10 MG TABLET PO (09:52)
[2020-11-04] MEDS: FLUoxetine HCL 20 MG CAPSULE 40 MG PO (09:52)
[2020-11-04] MEDS: FAMOTIDINE 20 MG TABLET 40 MG PO (09:52)
[2020-11-04] MEDS: METOPROLOL TARTRATE 12.5 MG TABLET PO ×2 (09:52→20:14)
[2020-11-04] MEDS: INSULIN GLARGINE (*BKC) 100 UNITS/ML 25 UNITS SUB-Q (09:57)
[2020-11-04 12:37] LABS: Glucose Point of Care 170 mg/dl (65-105)
--- NOTE | 2020-11-04 16:41 | PM.IMPN ---
Progress Note: A&P Assessment and Plan (1) Dyspnea: Qualifiers: Dyspnea type: shortness of breath Qualified Code(s): R06.02 - Shortness of breath Code(s): R06.00 - Dyspnea, unspecified Status: Acute Assessment and Plan: Improved with with Lasix, suggestive of CHF, however echo reviewed with normal EF 55-60% Concern for aspiration S/p MBS with negative results CXR and CTA with no acute disease, afebrile without leukocytosis Now on RA The patient does have obstructive sleep apnea for which she refuses CPAP Wean O2 viral resp panel pending SC-->Gram positive cocci (2) Diabetes mellitus: Qualifiers: Diabetes mellitus type: type 2 Diabetes mellitus terminal operator insulin use: with terminal operator use Diabetes mellitus complication status: with hypoglycemia Diabetes mellitus complication detail: without coma Qualified Code(s): E11.649 - Type 2 diabetes mellitus with hypoglycemia without coma; Z79.4 - long term care 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 (current) use of insulin Code(s): E11.9 - Type 2 diabetes mellitus without complications Status: Acute Assessment and Plan: Hgb A1c 5.2 Reported episodes of hypoglycemia at home with fasting glucose in the 40s-50s Lantus has been decreased to 25 units daily Continue Accu-Cheks, sliding scale insulin, and hypoglycemic protocol Monitor (3) Atrial fibrillation: Code(s): I48.91 - Unspecified atrial fibrillation Status: Inactive Assessment and Plan: Rate is controlled Continue metoprolol 12.5 mg b.i.d and Eliquis Monitor (4) Pneumonia: Code(s): J18.9 - Pneumonia, unspecified organism Status: Acute Assessment and Plan: ? aspiration pneumonia SC -->growing Gram positive cocci Check CBC Check BC and urine antigen CXR Will start zosyn, deescalate if needed Continue IS Supplemental O2 to keep sats >92 Additional Plan will await final culture results; continue d/c planning with CC Subjective Date/time seen: 11/04/20 16:41 Interval history: pt seen and evaluated; no acute events overnight, denies any SOB or CP; complains of cough with some yellow sputum Review of Systems Review of Systems: All systems reviewed & are unremarkable except as noted in HPI and below Exam Const: General: no acute distress, alert and awake Orientation/consciousness: patient oriented x3 HENMT: Head: normocephalic and atraumatic Ears: hearing grossly normal bilaterally and external ears normal Face and sinus: face symmetric Mouth: Yes Normal oral and palatal mucosa present Eyes: EOM: EOMs intact bilaterally Neck: Neck: full ROM, trachea midline and no JVD Thyroid: thyroid normal Chest: Chest palpation & inspection: normal inspection of the chest Resp: Effort & Inspection: normal respiratory effort Auscultation: rhonchi and other (upper airways) Cardio: Jugular venous distension: no JVD Rate: regular rate Rhythm: regular rhythm Heart sounds: S1 normal heart sound present and S2 normal heart sound present GI: Inspection: normal to inspection Auscultation: normal bowel sounds : General: Yes no CVA tenderness Back/Spine/Pelvis: Back: no CVA tenderness Skin: General skin exam: normal color Rashes: no rashes Neuro: General: patient oriented x3 and CN's II-XI intact bilaterally Cranial nerves: Yes Bilaterally intact EOM present Speech: normal speech Motor exam (neuro): Other motor observations present (left sided paralysis) Psych: Appearance: grossly normal Affect: normal affect Judgement: Good judgement present (Psych) Objective Data Vital Signs Vital Signs: Vital Signs - 24 hr 11/03/20 20:00 11/03/20 20:10 11/03/20 20:12 Temperature 36.2 C L Pulse Rate 96 90 90 Respiratory Rate 18 Blood Pressure 159/62 H Pulse Oximetry 93 11/04/20 00:00 11/04/20 04:00 11/04/20 06:00 Temperature 35.9 C L Pulse Rate 91 82 85 Respiratory Rate 16 Blood Pressure 140/62 Pulse Oximetry 95 11/04/20 0
[2020-11-04 17:07] LABS: Glucose Point of Care 131 mg/dl (65-105)
[2020-11-04 19:11] LABS: Basophils Absolute Auto 0.1 K/mm3 (0.0-0.1); Basophils Percent Auto 0.5 % (0.2-1.2); Eosinophils Percent Auto 0.4 % (0-4.4); Hematocrit 36.6 % (37.0-47.0); Hemoglobin 10.9 g/dL (12.0-15.0); Immature Granulocyte Absolute 0.03 K/mm3 (0.00-0.031); Immature Granulocyte Percent A 0.3 % (0-0.5); Lymphocytes Absolute Auto 0.87 K/mm3 (0.9-3.2); Lymphocytes Percent Auto 9.2 % (18.3-44.2); Mean Corpuscular HGB Conc 29.8 g/dl (32-36); Mean Corpuscular Volume 80.6 fl (80-100); Mean Platelet Volume 10.8 fl (7.4-10.4); Monocytes Absolute Auto 0.8 K/mm3 (0.1-0.6); Monocytes Percent Auto 8.8 % (2.6-8.5); Neutrophils Absolute Auto 7.7 K/mm3 (1.3-6.7); Neutrophils Percent Auto 80.8 % (45.5-73.1); Platelet Count Result 219 k/mm3 (150-375); Red Blood Count 4.54 M/mm3 (4.2-5.4); Red Cell Distribution Width 16.8 % (11.5-14.5); White Blood Count 9.5 K/mm3 (4.5-10.0)
[2020-11-04 19:14] LABS: Anisocytosis 2+ (NORMAL); Hypochromasia 1+ (NORMAL); Platelet Estimate Adequate (Adequate)
[2020-11-04 21:18] LABS: Glucose Point of Care 266 mg/dl (65-105)
[2020-11-05] VITALS (11 sets, daily range): BP systolic 138–152; BP diastolic 70–89; PULSE 78–102; RESP 16–20; TEMP 36.6–37.7; O2SAT 93–96
[2020-11-05] MEDS: LEVOTHYROXINE SODIUM 50 MCG TABLET PO (05:52)
[2020-11-05 08:00] LABS: Glucose Point of Care 158 mg/dl (65-105)
[2020-11-05 08:50] LABS: Alanine Aminotransferase 14 U/L (4-35); Albumin Level 3.2 g/dL (3.5-5.1); Alkaline Phosphatase 116 U/L (38-126); Anion Gap 4 mmol/L (8-16); Aspartate Amino Transferase 20 U/L (14-36); Bilirubin,Total 0.5 mg/dL (0.2-1.3); Blood Urea Nitrogen 11 mg/dL (7-17); Calcium 8.2 mg/dL (8.4-10.2); Carbon Dioxide 33 mmol/L (22-30); Chloride 97 mmol/L (98-107); Estimated CRCL calculation 85 ml/min; Estimated Glomerular Filt Rate > 60; Glucose 149 mg/dL (65-110); Potassium 3.1 mmol/L (3.4-5.0); Sodium 134 mmol/L (137-145)
[2020-11-05] MEDS: INSULIN GLARGINE (*BKC) 100 UNITS/ML 25 UNITS SUB-Q (09:42)
[2020-11-05] MEDS: BACLOFEN 10 MG TABLET PO ×3 (09:43→17:44)
[2020-11-05] MEDS: FLUoxetine HCL 20 MG CAPSULE 40 MG PO (09:43)
[2020-11-05] MEDS: ATORVASTATIN 10 MG TABLET PO (09:43)
[2020-11-05] MEDS: SODIUM CHLORIDE 0.9% IV 1,000 ML 75 ML IV CONT (09:43)
[2020-11-05] MEDS: GABAPENTIN 100 MG CAPSULE PO ×3 (09:44→17:44)
[2020-11-05] MEDS: lisinopriL 20 MG TABLET 40 MG PO (09:44)
[2020-11-05] MEDS: APIXABAN 5 MG TABLET PO ×2 (09:44→20:35)
[2020-11-05] MEDS: FAMOTIDINE 20 MG TABLET 40 MG PO (09:44)
[2020-11-05] MEDS: METOPROLOL TARTRATE 12.5 MG TABLET PO ×2 (09:44→20:35)
[2020-11-05] MEDS: SPIRONOLACTONE 12.5 MG TABLET PO (09:44)
[2020-11-05] MEDS: guaiFENesin 12 HR 600 MG TABCR PO (09:45)
[2020-11-05] MEDS: ASPIRIN 81 MG ENTERIC TABLET PO (09:45)
--- NOTE | 2020-11-05 10:17 | PM.IMPN ---
Progress Note: A&P Assessment and Plan (1) Dyspnea: Qualifiers: Dyspnea type: shortness of breath Qualified Code(s): R06.02 - Shortness of breath Code(s): R06.00 - Dyspnea, unspecified Status: Acute Assessment and Plan: Improved with with Lasix, suggestive of CHF, however echo reviewed with normal EF 55-60% Concern for aspiration S/p MBS with negative results CXR and CTA with no acute disease, afebrile without leukocytosis Now on RA The patient does have obstructive sleep apnea for which she refuses CPAP Wean O2 viral resp panel pending SC-->Gram positive cocci (2) Diabetes mellitus: Qualifiers: Diabetes mellitus type: type 2 Diabetes mellitus manager terminal insulin use: with manager terminal use Diabetes mellitus complication status: with hypoglycemia Diabetes mellitus complication detail: without coma Qualified Code(s): E11.649 - Type 2 diabetes mellitus with hypoglycemia without coma; Z79.4 - terminal carman (current) use of insulin Code(s): E11.9 - Type 2 diabetes mellitus without complications Status: Acute Assessment and Plan: Hgb A1c 5.2 Reported episodes of hypoglycemia at home with fasting glucose in the 40s-50s Lantus has been decreased to 25 units daily Continue Accu-Cheks, sliding scale insulin, and hypoglycemic protocol Monitor (3) Atrial fibrillation: Code(s): I48.91 - Unspecified atrial fibrillation Status: Inactive Assessment and Plan: Rate is controlled Continue metoprolol 12.5 mg b.i.d and Eliquis Monitor (4) Pneumonia: Code(s): J18.9 - Pneumonia, unspecified organism Status: Acute Assessment and Plan: R/o ? aspiration pneumonia SC -->growing Gram positive cocci Afebrile CBC no leukocytosis Follow BC and urine antigen CXR with no infiltrates D/c zosyn, Will start azithromycin for 5 more days Continue IS Supplemental O2 to keep sats >92 (5) Lower respiratory infection (e.g., bronchitis, pneumonia, pneumonitis, pulmonitis): Code(s): J22 - Unspecified acute lower respiratory infection Status: Acute Assessment and Plan: treatment as above Additional Plan will await final culture results; continue d/c planning with CC Subjective Date/time seen: 11/05/20 10:17 Interval history: pt seen and evaluated; no acute events overnight, denies any SOB or CP; continues with cough and phlegm Exam Const: General: no acute distress, alert and awake Orientation/consciousness: patient oriented x3 HENMT: Head: normocephalic and atraumatic Ears: hearing grossly normal bilaterally and external ears normal Face and sinus: face symmetric Mouth: Yes Normal oral and palatal mucosa present Eyes: EOM: EOMs intact bilaterally Neck: Neck: full ROM, trachea midline and no JVD Thyroid: thyroid normal Chest: Chest palpation & inspection: normal inspection of the chest Resp: Effort & Inspection: normal respiratory effort Auscultation: rhonchi and other (upper airways) Cardio: Jugular venous distension: no JVD Rate: regular rate Rhythm: regular rhythm Heart sounds: S1 normal heart sound present and S2 normal heart sound present GI: Inspection: normal to inspection Auscultation: normal bowel sounds : General: Yes no CVA tenderness Back/Spine/Pelvis: Back: no CVA tenderness Skin: General skin exam: normal color Rashes: no rashes Neuro: General: patient oriented x3 and CN's II-XI intact bilaterally Cranial nerves: Yes Bilaterally intact EOM present Speech: normal speech Motor exam (neuro): Other motor observations present (left sided paralysis) Psych: Appearance: grossly normal Affect: normal affect Judgement: Good judgement present (Psych) Objective Data Vital Signs Vital Signs: Vital Signs - 24 hr 11/04/20 12:00 11/04/20 14:00 11/04/20 16:00 Temperature 36.0 C L Pulse Rate 88 84 92 Respiratory Rate 16 Blood Pressure 117/57 L Pulse Oximetry 95 11/04/20 19:3
[2020-11-05] MEDS: AZITHROMYCIN 250 MG TABLET PO (12:52)
[2020-11-05 13:51] LABS: Glucose Point of Care 151 mg/dl (65-105)
[2020-11-05 17:42] LABS: Glucose Point of Care 254 mg/dl (65-105)
[2020-11-05] MEDS: INSULIN ASPART (*BKC) 100 UNITS/ML SUB-Q (18:48)
[2020-11-05 22:14] LABS: Glucose Point of Care 206 mg/dl (65-105)
[2020-11-06] VITALS: PULSE 70
[2020-11-06 04:00] VITALS: PULSE 75
[2020-11-06] MEDS: LEVOTHYROXINE SODIUM 50 MCG TABLET PO (05:37)
[2020-11-06 06:00] VITALS: BP 151/88; PULSE 83; RESP 16; TEMP 37.2; O2SAT 97
[2020-11-06] MEDS: SODIUM CHLORIDE 0.9% IV 1,000 ML 75 ML IV CONT (06:22)
[2020-11-06 08:00] VITALS: PULSE 92
[2020-11-06 08:18] LABS: Glucose Point of Care 121 mg/dl (65-105)
[2020-11-06] MEDS: APIXABAN 5 MG TABLET PO (10:23)
[2020-11-06] MEDS: FAMOTIDINE 20 MG TABLET 40 MG PO (10:23)
[2020-11-06] MEDS: SPIRONOLACTONE 12.5 MG TABLET PO (10:23)
[2020-11-06 10:24] VITALS: PULSE 97
[2020-11-06] MEDS: ASPIRIN 81 MG ENTERIC TABLET PO (10:24)
[2020-11-06] MEDS: METOPROLOL TARTRATE 12.5 MG TABLET PO (10:24)
[2020-11-06 10:25] LABS: Anion Gap 3 mmol/L (8-16); Blood Urea Nitrogen 13 mg/dL (7-17); Carbon Dioxide 25 mmol/L (22-30); Chloride 107 mmol/L (98-107); Potassium 3.6 mmol/L (3.4-5.0); Sodium 135 mmol/L (137-145)
[2020-11-06] MEDS: FLUoxetine HCL 20 MG CAPSULE 40 MG PO (10:25)
[2020-11-06] MEDS: lisinopriL 20 MG TABLET 40 MG PO (10:25)
[2020-11-06] MEDS: GABAPENTIN 100 MG CAPSULE PO (10:25)
[2020-11-06] MEDS: AZITHROMYCIN 250 MG TABLET PO (10:25)
[2020-11-06 10:26] LABS: Calcium 7.9 mg/dL (8.4-10.2); Estimated CRCL calculation 103 ml/min; Estimated Glomerular Filt Rate > 60; Glucose 127 mg/dL (65-110)
[2020-11-06] MEDS: BACLOFEN 10 MG TABLET PO (10:26)
[2020-11-06] MEDS: ATORVASTATIN 10 MG TABLET PO (10:26)
[2020-11-06] MEDS: INSULIN GLARGINE (*BKC) 100 UNITS/ML 25 UNITS SUB-Q (10:29)
--- NOTE | 2020-11-06 10:57 | PCNFU ---
Nutrition Follow-Up Complete: Excessive Energy Intake as related to obesity as evidenced by BMI: 34.7 Goal: Meet estimated nutritional needs Progressing towards goal. We will continue current goal. Pt current nutrition is DBCc/Heart Healthy. Last recorded weight is 91.6 kg, no new weight to report. Bowel Motility:+BM reported 11/05 Labs Reviewed:Na 135,Cr 0.4,Glu 127 Meds Noted:Prinivil, Neurontin,Prozac,Pepcid,Lantus,Synthroid,Lipitor,Lopressor. Additional Notes: Patient seen today for nutrition follow up. Oral Intake has been about 50% of meals. Glucerna shakes remain as a diet order BID providing an additional 220 kcals and 10 gms protein. Patient is feeding self. Nursing asked for her meats to be chopped, that was discussed with the diet office. Agree with diet orders. Monitoring: Will monitor every 5 days.
[2020-11-06 12:00] VITALS: PULSE 87
[2020-11-06 13:59] LABS: Glucose Point of Care 145 mg/dl (65-105)
--- NOTE | 2020-11-06 14:51 | PM.DS ---
DS: Admitting Diagnosis Admitting Diagnosis Rattling in my chest DS: Summary Hospital Course Hospital Course: Mrs. Cook is a 80-year-old lady with past medical history of prior tobacco abuse obstructive sleep apnea, hypertension, hyperlipidemia, and CVA with left-sided hemiplegia who presented to the ER from home via EMS due to rattling in her chest. She denied a past medical history of CHF or COPD but did have a prior 44 part per year smoking history. She reports 3 days of feeling rattling in her chest. She had a cough productive of abdi to greenish sputum. She denied fevers, chills or any recent ill contacts. She denied any chest pain or palpitations. She had not noticed any increased lower extremity swelling. She is bedbound chronically since she was discharged home in April following her CVA in February. She was experiencing dyspnea which improved with Lasix. She underwent echocardiogram on 11/01 which was reassuring with normal EF 55-60%. There was a concern for aspiration; subsequently she underwent MBS with negative results. CXR and CTA with showed no acute disease, afebrile without leukocytosis. Pneumonia was ruled out. A viral respiratory panel and urine antigen were collected. Results are still pending. Her symptoms are suggestive of an upper respiratory infection. Overall she does feel better and sputum production has decreased. She will be discharged on antibiotics and an expectorant. She has been advised to follow up with her PCP within 2 weeks. Time Spent with Patient Time attestation: Total time spent providing and/or coordinating discharge services: 50 Time spent: Greater than 30 minutes DS: Data Data Completed and Pending Labs on day of discharge: Labs from last 24 hours 11/06/20 11/06/20 11/06/20 13:33 08:06 07:38 Sodium 135 L Potassium 3.6 Chloride 107 Carbon Dioxide 25 Anion Gap 3 L BUN 13 Creatinine 0.40 L Estim Creat Clear Calc 103 Estimated GFR > 60 Glucose 127 H POC Capillary Glucose 145 H 121 H Calcium 7.9 L 11/05/20 11/05/20 20:28 17:29 Sodium Potassium Chloride Carbon Dioxide Anion Gap BUN Creatinine Estim Creat Clear Calc Estimated GFR Glucose POC Capillary Glucose 206 H 254 H Calcium Preliminary micro results at discharge 11/04/20 18:38 Blood Culture - Preliminary Blood 11/04/20 18:38 Blood Culture - Preliminary Blood 11/03/20 10:24 Sputum Culture - Preliminary Sputum Discharge Plan Discharge Attending physician on discharge: Naldo Gregory Discharging Clinician: Jenny Remy Patient Disposition: Home Health Service Activity: as tolerated Diet: heart healthy Discharge Instructions: Per Care Coordination, pt. will D/C home with [facility] for continued PT/OT. Please have pt.'s RN fax discharge instructions to [phone]. call PCP to schedule follow up appointment Patient Instructions: Antibiotic Form, Furosemide (By mouth), Apixaban (By mouth), Heart Failure (DC), Pain Management (DC), Upper Respiratory Infection (DC), Hypoxia (ED), Blood Thinners (DC) Stand Alone Forms: General Discharge Information Follow-up/Referrals: Deven,MD Kevon [Primary Care Provider] - 2 Weeks Discharge Medications: New azithromycin [Zithromax] 250 mg Tablet 250 mg PO DAILY 7 Days Qty: 7 RF: 0 guaifenesin [Mucus Relief ER] 600 mg Tablet Extended Release 12hr 600 mg PO Q12HR PRN (Reason: Cough) 7 Days Qty: 14 RF: 0 Continued fluoxetine 40 mg capsule 40 mg PO DAILY RF: 0 atorvastatin 10 mg tablet 10 mg PO DAILY RF: 0 famotidine 40 mg tablet 40 mg PO DAILY RF: 0 spironolactone 25 mg Tablet 12.5 mg PO DAILY RF: 0 baclofen 10 mg tablet 10 mg PO TID RF: 0 levothyroxine 50 mcg tablet 50 mcg PO DAILY RF: 0 aspirin 81 mg Tablet 81 mg PO DAILY RF: 0 gabapentin 100 mg capsule 100 mg PO TID RF: 0
== END 2020-11-06 15:13 | disposition home health service (06) | DRG 153 ==
LOC: ANHED 17:45 → ANH3MED 20:55
PROVIDERS: Emergency Medicine; Nurse Practitioner Adult Health; Physician Assistant; Admitting Provider Internal Medicine; Emergency Provider Emergency Medicine; PCP Internal Medicine; Visit Provider Internal Medicine
DX: J06.9 Acute upper respiratory infection, unspecified (principal); I69.354 Hemiplegia and hemiparesis following cerebral infarction affecting left non-dominant side; I48.20 Chronic atrial fibrillation, unspecified; R09.02 Hypoxemia; G47.33 Obstructive sleep apnea (adult) (pediatric); E78.5 Hyperlipidemia, unspecified; I10 Essential (primary) hypertension; E03.9 Hypothyroidism, unspecified; E11.649 Type 2 diabetes mellitus with hypoglycemia without coma; I73.9 Peripheral vascular disease, unspecified; Z98.42 Cataract extraction status, left eye; Z98.41 Cataract extraction status, right eye; Z79.4 Long term (current) use of insulin; Z87.891 Personal history of nicotine dependence; Z79.01 Long term (current) use of anticoagulants
CPT/HCPCS: 36415; 51702; 71045; 71046; 71275; 73060; 80048; 80053; 80076; 82948; 83036; 83880; 84484; 85025; 85027; 85610; 85730; 87040; 87070; 87205; 92611; 93005; 93306; 94640; 96374; 99285; A9270; G0378; J1815; J1940; J2543; J7030; Q9967

== ENCOUNTER 2021-02-24 13:29 | Inpatient (IN) | payer MEDICARE, BC, SELFPAY ==
[2021-02-24] VITALS (7 sets, daily range): BP systolic 143–190; BP diastolic 70–100; PULSE 58–102; RESP 14–20; TEMP 36.7–36.9; O2SAT 95–100; BMI 38.4
--- NOTE | ~2021-02-24 | XR_ITS ---
EXAMINATION: XR chest 1V portable DATE: 02/24/2021 16:14 INDICATION: Leukocytosis. TECHNIQUE: A single frontal view of the chest was obtained. COMPARISON: Chest single view 11/05/2020, CT abdomen and pelvis 02/24/2021 FINDINGS: There is no pneumonia, pleural effusion, or pneumothorax. Cardiomegaly is noted. IMPRESSION: 1. Cardiomegaly. Reviewed, dictated and finalized at location A. H EXAMINER IMPRESSION: 1. Cardiomegaly.
--- NOTE | ~2021-02-24 | US_ITS ---
EXAMINATION: US renal BI DATE: 02/25/2021 12:23 INDICATION: Hydronephrosis. TECHNIQUE: Multiple ultrasound grayscale images of the kidneys were obtained. COMPARISON: CT abdomen and pelvis 02/24/2021 FINDINGS: The right kidney measures 9.8 x 5.5 x 5.8 cm. The left kidney measures 10.0 x 4.1 x 5.3 cm. The kidne ys demonstrate normal parenchymal echogenicity. There is no hydronephrosis. The bladder is decompress ed by a Guaman catheter. IMPRESSION: 1. Normal kidneys. No hydronephrosis. Reviewed, dictated and finalized at location A. ESTATE AGENT/BROKER
--- NOTE | ~2021-02-24 | CT_ITS ---
EXAMINATION: CT abdomen pelvis w con DATE: 02/24/2021 14:58 INDICATION: Low abdominal pain. Hematuria. TECHNIQUE: Computed tomography (CT) of the abdomen and pelvis was performed with 100 mL Omnipaque 350 intravenous contrast. Automated exposure control and iterative reconstruction technique were employe d. The dose-length product was 1442.15 mGy-cm. COMPARISON: Chest CT 10/31/2020 FINDINGS: The visualized portions of the lung bases demonstrate mild atelectasis. There is a small ri ght pleural effusion. Cardiomegaly is noted. There are coronary artery calcifications. There is a sma ll pericardial effusion. The liver, gallbladder, spleen, pancreas, and adrenal glands are normal. The re is cortical thinning of the kidneys. There is mild bilateral hydronephrosis and hydroureter. The b ladder is distended. There is diffuse bladder wall thickening. There is fat stranding around the blad esperanza. There are small calcified fibroids in uterus. There is diverticulosis of the colon without evide nce of diverticulitis. The appendix is normal. There is a small sliding hiatal hernia. There is an um bilical hernia containing fat. There is trace ascites. There is mild thoracic spondylosis and moderat e lumbar spondylosis. IMPRESSION: 1. Distended bladder with diffuse wall thickening and surrounding fat stranding suspicious for cystit is. 2. Mild bilateral hydronephrosis and hydroureter. 3. Small right pleural effusion. 4. Small pericardial effusion. Reviewed, dictated and finalized at location A. RT ANALYST IMPRESSION: 1. Distended bladder with diffuse wall thickening and surrounding fat stranding suspicious for cystitis. 2. Mild bilateral hydronephrosis and hydroureter. 3. Small right pleural effusion. 4. Small pericardial effusion.
--- NOTE | 2021-02-24 13:50 | ED.GENADULT ---
HPI - General Adult General Chief complaint: Urogenital-Female Stated complaint: hematuria Source: patient and EMS Mode of arrival: wheelchair Limitations: no limitations History of Present Illness HPI narrative: Patient presents for evaluation of problems urinating . Patient initially cannot tell me more specific information about her urinary complaints. However nurse present at bedside tells me that today patient was using a bedpan when her family noted hematuria. Patient has an underlying history of prior tobacco use, COPD, hypertension, hyperlipidemia, CVA with left-sided hemiplegia, atrial fibrillation. She is anticoagulated with eliquis. She states she has had lower abdominal pain since yesterday. She does not provide me with a descriptive quality or numerical rating to the pain. She denies any fever, chills, nausea, vomiting, back pain. She states she had blood in her stool once recently. She states her last colonoscopy was about fifteen years ago. She believes this was normal Related Data Home Medications Medication Instructions Recorded Confirmed Eliquis 5 mg PO BID 10/31/20 10/31/20 Lantus Solostar U-100 Insulin 35 unit SUBCUT DAILY 10/31/20 10/31/20 acetaminophen 650 mg PO Q4H PRN 10/31/20 10/31/20 aspirin 81 mg PO DAILY 10/31/20 10/31/20 atorvastatin 10 mg PO DAILY 10/31/20 10/31/20 baclofen 10 mg PO TID 10/31/20 10/31/20 famotidine 40 mg PO DAILY 10/31/20 10/31/20 fluoxetine 40 mg PO DAILY 10/31/20 10/31/20 gabapentin 100 mg PO TID 10/31/20 10/31/20 levothyroxine 50 mcg PO DAILY 10/31/20 10/31/20 lisinopril 40 mg PO DAILY 10/31/20 10/31/20 metoprolol tartrate 12.5 mg PO BID 10/31/20 10/31/20 polyethylene glycol 3350 17 g PO DAILY PRN 10/31/20 10/31/20 ramelteon 8 mg PO HS 10/31/20 10/31/20 spironolactone 12.5 mg PO DAILY 10/31/20 10/31/20 tramadol 50 mg PO Q6H PRN 10/31/20 10/31/20 Allergies Allergy/AdvReac Type Severity Reaction Status Date / Time No Known Allergies Allergy Verified 02/24/21 14:30 Review of Systems Review of Systems: CONSTITUTIONAL: Denies fever, chills, or sweats. EYES: Denies visual changes, redness, or discharge. ENT: Denies rhinorrhea, congestion, sore throat, or otalgia. CARDIOVASCULAR: Denies chest pain, palpitations, or edema. RESPIRATORY: Denies cough or dyspnea. GASTROINTESTINAL: Reports abdominal pain. Denies nausea, vomiting, or diarrhea. GENITOURINARY: Reports hematuria. SKIN: Denies rash or itching. MUSCULOSKELETAL: Denies back pain, joint pain, or myalgia. NEUROLOGIC: Denies headache, numbness, dizziness, or weakness. PSYCHIATRIC: Denies anxiety or depression. [facility] Past Medical History Medical History Atrial fibrillation CVA (cerebral vascular accident) (02/2020) With right hemiplegia Diabetes mellitus Essential hypertension Hyperlipidemia Hypothyroidism Obstructive sleep apnea Intolerant to CPAP Peripheral artery disease Surgical History Surgical History History of right-sided carotid endarterectomy Status post cataract extraction of both eyes with insertion of intraocular lens Family History Family History Father Heart disease Mother Heart disease Social History Social History Social History: Primary care physician: Dr. Kevon Carvalho Code status: Full code Surrogate decision maker: Smoking packs per day: 1 Smoking cigarettes per day: 20.0 Years smoked: 44 Smoking pack-years: 44.00 Smoking status: Former smoker Tobacco type: cigarettes Alcohol intake: never Substance use: never Additional living arrangements comments: The patient lives at home with her of 59 years. She is bed-bound since her stroke in February 2020. They have 2 children are healthy. Additional
[2021-02-24 14:17] LABS: Basophils Absolute Auto 0.1 K/mm3 (0.0-0.1); Basophils Percent Auto 0.5 % (0.2-1.2); Eosinophils Percent Auto 0.1 % (0-4.4); Hematocrit 44.4 % (37.0-47.0); Hemoglobin 13.1 g/dL (12.0-15.0); Immature Granulocyte Absolute 0.06 K/mm3 (0.00-0.031); Immature Granulocyte Percent A 0.3 % (0-0.5); Lymphocytes Absolute Auto 0.71 K/mm3 (0.9-3.2); Lymphocytes Percent Auto 3.9 % (18.3-44.2); Mean Corpuscular HGB Conc 29.5 g/dl (32-36); Mean Corpuscular Hemoglobin 22.2 pg (26-34); Mean Corpuscular Volume 75.4 fl (80-100); Mean Platelet Volume 11.2 fl (7.4-10.4); Monocytes Percent Auto 5.7 % (2.6-8.5); Neutrophils Absolute Auto 16.2 K/mm3 (1.3-6.7); Neutrophils Percent Auto 89.5 % (45.5-73.1); Platelet Count Result 371 k/mm3 (150-375); Red Blood Count 5.89 M/mm3 (4.2-5.4); White Blood Count 18.1 K/mm3 (4.5-10.0)
[2021-02-24 14:17] LABS: Add Urine Microscopic? YES; Appearance Urine Cloudy (Clear); Bilirubin Urine Negative (Negative); Blood Urine 3+ (Negative); Color Urine Yellow (Yellow); Glucose Urine UA Negative (Negative); Ketones Urine Negative (Negative); Leukocyte Esterase Ur Negative LEU/UL (Negative); Nitrate Urine Negative (Negative); Protein Urine 1+ mg/dL (Negative); RBC Urine >75 /hpf (0-2); Specific Grav Ur 1.006 (1.001-1.035); Squamous Epithelial Cell Urine Few /hpf (Few); Urobilinogen Urine Negative mg/dL (<2.0)
[2021-02-24 14:35] LABS: Alanine Aminotransferase 20 U/L (4-35); Albumin Level 3.8 g/dL (3.5-5.1); Alkaline Phosphatase 153 U/L (38-126); Anion Gap 10 mmol/L (8-16); Aspartate Amino Transferase 46 U/L (14-36); Bilirubin,Total 0.7 mg/dL (0.2-1.3); Blood Urea Nitrogen 17 mg/dL (7-17); Calcium 8.7 mg/dL (8.4-10.2); Carbon Dioxide 26 mmol/L (22-30); Chloride 103 mmol/L (98-107); Estimated CRCL calculation 83 ml/min; Estimated Glomerular Filt Rate > 60; Glucose 224 mg/dL (65-110); Lipase 37 U/L (23-300); Potassium 3.7 mmol/L (3.4-5.0); Sodium 139 mmol/L (137-145)
[2021-02-24 15:02] LABS: INR 1.2; Prothrombin Time 15.2 Seconds (11.1-14.7)
[2021-02-24 15:03] LABS: Partial Thromboplastin Time 27.1 SECONDS (22.3-36.8)
[2021-02-24 18:44] LABS: Glucose Point of Care 212 mg/dl (65-105)
--- NOTE | 2021-02-24 18:50 | PC.NURSE ---
This patient, Kristy Cook, was admitted to 3 Med Surg Room 323- 180. Patient/family oriented to hospital policies and general routines including ID bracelet, bed and alarms, visiting hours, pain management, procedures, bathroom and other care routines, personal items, smoking policy, room service/diet, and visiting hours. Information on how to activate the Rapid Response Team has been discussed. Patient/Family are encouraged to report perceived risks to care and to ask questions if they do not understand what they are told or what they should do.
--- NOTE | 2021-02-24 19:32 | PC.NURSE ---
Provider Taylor called r/t critical lactic acid.
[2021-02-24 21:25] LABS: Reflex Lactic Acid Yes or No Add Lactic
[2021-02-24] MEDS: lisinopriL 20 MG TABLET 40 MG PO (21:44)
[2021-02-24] MEDS: METOPROLOL TARTRATE 12.5 MG TABLET PO (21:44)
[2021-02-24] MEDS: INSULIN GLARGINE (*BKC) 100 UNITS/ML 28 UNITS SUB-Q (21:50)
--- NOTE | 2021-02-24 21:59 | PM.IMHP ---
H&P: HPI History of Present Illness Date/Time: 02/24/21 21:59 this is a 80-year-old female patient who resides at home with her family. She has had history of a CVA with a left side effect. The patient was brought to the emergency room today for evaluation of urination problems. Initially the patient was having difficulty urinating. The patient currently wears a depends. However the patient was using the bedpan today when her family noted that she had hematuria. The patient is on Eliquis for atrial fibrillation. The patient is a poor historian but is answering some of the questions. It was also reported to me from the ED provider that her stool was slightly positive for guaiac. H&H is normal at 13.1 and 44.4. MCV is 75.4. White count is 18.1. Chest x-ray was read as cardiomegaly. Abdominal pelvis CT was read as the following1. Distended bladder with diffuse wall thickening and surrounding fat stranding suspicious for cystitis. 2. Mild bilateral hydronephrosis and hydroureter. 3. Small right pleural effusion. 4. Small pericardial effusion. The patient was given Zofran, Tylenol and IV fluids in the emergency room. The patient is being admitted to observation status on the date of service of 02/24/2021. Chief Complaint: Hematuria Review of Systems Review of Systems: All systems reviewed & are unremarkable except as noted in HPI and below Constitutional: Constitutional: Reports as per HPI and Reports no additional constitutional complaints Eyes: Eyes: Reports as per HPI and Reports no additional eye complaints ENT: Reports system reviewed and no additional complaints, except as documented and Reports Normal hearing present Cardiovascular: Cardiovascular: Reports no additional cardiovascular complaints Respiratory: Respiratory: Reports no additional respiratory complaints and Reports no additional respiratory complaints Gastrointestinal: Gastrointestinal: Reports as per HPI and Reports no additional gastrointestinal complaints Musculoskeletal: Musculoskeletal: Reports no additional musculoskeletal complaints Integumentary/Breasts: Skin/Breast: Reports system reviewed and no additional complaints, except as docu and Reports as per HPI Neurologic: Reports system reviewed and no additional complaints, except as documented, Reports as per HPI and Reports Normal hearing present Psychiatric: Psychiatric: Reports no additional psychiatric complaints and Reports as per HPI Endocrine: Endocrine: Reports no additional endocrine complaints Hematologic/Lymphatic: Hematologic/Lymphatic: Reports no additional hematologic/lymphatic complaints Allergic/Immunologic: Allergic/Immunologic: Reports no additional allergic/immunologic complaints PMFSH Past Medical History Medical History Atrial fibrillation CVA (cerebral vascular accident) (02/2020) With right hemiplegia Diabetes mellitus Essential hypertension Hyperlipidemia Hypothyroidism Obstructive sleep apnea Intolerant to CPAP Peripheral artery disease Surgical History Surgical History History of right-sided carotid endarterectomy Status post cataract extraction of both eyes with insertion of intraocular lens Family History Family History Father Heart disease Mother Heart disease Social History Social History (Updated 02/24/21 @ 22:10 by Taylor Calero NP) Social History: The patient lives with her who has COPD. Primary care physician: Dr. Kevon Carvalho Code status: Full code Surrogate decision maker: Smoking packs per day: 1 Smoking cigarettes per day: 20.0 Years smoked: 44 Smoking pack-years: 44.00 Smoking status: Never smoker Tobacco type: cigarettes Alcohol intake: never Substance use: never Additional living arrangements comments: The patient lives at [facility]
[2021-02-24 22:10] LABS: Glucose Point of Care 212 mg/dl (65-105)
[2021-02-24 22:29] LABS: Lactic Acid 3.3 mmol/L (0.7-2.1)
[2021-02-25] VITALS (11 sets, daily range): BP systolic 116–174; BP diastolic 57–117; PULSE 68–122; RESP 14–18; TEMP 35.9–37.4; O2SAT 91–97
[2021-02-25] MEDS: MELATONIN 3 MG TABLET PO (00:17)
[2021-02-25] MEDS: LEVOTHYROXINE SODIUM 50 MCG TABLET PO (06:41)
[2021-02-25 07:32] LABS: Anion Gap 10 mmol/L (8-16); Blood Urea Nitrogen 28 mg/dL (7-17); Calcium 9.2 mg/dL (8.4-10.2); Carbon Dioxide 26 mmol/L (22-30); Chloride 100 mmol/L (98-107); Estimated CRCL calculation 44 ml/min; Estimated Glomerular Filt Rate 54; Glucose 229 mg/dL (65-110); Potassium 3.8 mmol/L (3.4-5.0); Sodium 136 mmol/L (137-145)
[2021-02-25 07:53] LABS: Basophils Percent Auto 0.1 % (0.2-1.2); Hematocrit 40.7 % (37.0-47.0); Hemoglobin 12.2 g/dL (12.0-15.0); Immature Granulocyte Absolute 0.05 K/mm3 (0.00-0.031); Immature Granulocyte Percent A 0.3 % (0-0.5); Immature Platelet Fraction Pct 6.6 % (0.9-11.2); Lymphocytes Absolute Auto 1.13 K/mm3 (0.9-3.2); Lymphocytes Percent Auto 7.6 % (18.3-44.2); Mean Corpuscular Hemoglobin 22.1 pg (26-34); Mean Corpuscular Volume 73.7 fl (80-100); Mean Platelet Volume 11.3 fl (7.4-10.4); Monocytes Percent Auto 6.9 % (2.6-8.5); Neutrophils Absolute Auto 12.6 K/mm3 (1.3-6.7); Neutrophils Percent Auto 85.1 % (45.5-73.1); Platelet Count Result 280 k/mm3 (150-375); Red Blood Count 5.52 M/mm3 (4.2-5.4); Red Cell Distribution Width 18.4 % (11.5-14.5); White Blood Count 14.8 K/mm3 (4.5-10.0)
[2021-02-25 08:27] LABS: Glucose Point of Care 229 mg/dl (65-105)
[2021-02-25] MEDS: APIXABAN 5 MG TABLET PO ×2 (09:19→16:00)
[2021-02-25] MEDS: guaiFENesin 12 HR 600 MG TABCR PO (09:19)
[2021-02-25] MEDS: FAMOTIDINE 20 MG TABLET 40 MG PO (09:19)
[2021-02-25] MEDS: GABAPENTIN 100 MG CAPSULE PO ×3 (09:19→16:01)
[2021-02-25] MEDS: ASPIRIN 81 MG CHEWABLE TABLET PO (09:19)
[2021-02-25] MEDS: ATORVASTATIN 10 MG TABLET PO (09:19)
[2021-02-25] MEDS: BACLOFEN 10 MG TABLET PO ×2 (09:20→16:00)
[2021-02-25] MEDS: FLUoxetine HCL 20 MG CAPSULE 40 MG PO (09:20)
[2021-02-25] MEDS: METOPROLOL TARTRATE 12.5 MG TABLET PO (09:20)
[2021-02-25] MEDS: lisinopriL 20 MG TABLET 40 MG PO (09:20)
[2021-02-25] MEDS: INSULIN ASPART (*BKC) 100 UNITS/ML SUB-Q (09:25)
--- NOTE | 2021-02-25 10:53 | PM.IMPN ---
Progress Note: A&P Assessment and Plan (1) Hematuria: Qualifiers: Hematuria type: unspecified type Qualified Code(s): R31.9 - Hematuria, unspecified Code(s): R31.9 - Hematuria, unspecified Status: Acute Assessment and Plan: Associated with UTI continue IV Rocephin follow culture results Continue Eliquis for now as long as patient does not have blood clots and hemoglobin stable Continue Guaman catheter (2) Hydronephrosis: Code(s): N13.30 - Unspecified hydronephrosis Status: Acute Assessment and Plan: Secondary to urinary retention status post Guaman catheter (3) UTI (urinary tract infection): Code(s): N39.0 - Urinary tract infection, site not specified Status: Acute Assessment and Plan: Continue antibiotic follow culture results. (4) Diabetes mellitus: Qualifiers: Diabetes mellitus type: type 2 Diabetes mellitus long-term insulin use: with long-term use Diabetes mellitus complication status: with hypoglycemia Diabetes mellitus complication detail: without coma Qualified Code(s): E11.649 - Type 2 diabetes mellitus with hypoglycemia without coma; Z79.4 - laborer marine terminal (current) use of insulin Code(s): E11.9 - Type 2 diabetes mellitus without complications Status: Acute Assessment and Plan: Accu-Cheks AC and HS with sliding scale insulin. Continue with Lantus. (5) Hypertension: Code(s): I10 - Essential (primary) hypertension Status: Acute Assessment and Plan: Continue with lisinopril and metoprolol (6) Atrial fibrillation with slow ventricular response: Code(s): I48.91 - Unspecified atrial fibrillation Status: Acute Assessment and Plan: The patient is on Eliquis and metoprolol. Monitor CBC continue Eliquis. (7) Hemiparesis: Code(s): G81.90 - Hemiplegia, unspecified affecting unspecified side Status: Acute Assessment and Plan: Present on admission secondary to chronic stroke PT OT eval (8) CHF exacerbation: Code(s): I50.9 - Heart failure, unspecified Status: Acute Assessment and Plan: Started IV Lasix will get echo (9) Elevated lactic acid level: Code(s): R79.89 - Other specified abnormal findings of blood chemistry Status: Acute Assessment and Plan: I think most likely related to hypoperfusion secondary to CHF exacerbation either think patient has severe sepsis Continue diuresis re-evaluate Subjective Date/time seen: 02/25/21 10:53 Interval history: Patient seen and examined 80 years old female with past medical history of hypertension diabetes hyperlipidemia AFib on oral anticoagulation Eliquis patient has history of stroke with residual left-sided weakness patient unable to move her left side patient was in the commode she was not able to urinate at home also patient was having shortness of breath and sweating she has hematuria, CT scan of the abdomen was done showed urine retention and bilateral hydronephrosis Guaman catheter was placed also CT scan showed UTI and cystitis Rocephin was started chest x-ray showed cardiomegaly I discussed with the patient he stated last time when patient was in rehab her arm was left below the level of her heart and her arm got more swollen Patient denies fever headache chest pain I am seeing the patient for UTI Exam Narrative: Alert Chest decreased air entry bilateral bilateral basal crackles Abdomen nontender nondistended CVS S1 + S2 Lower extremity +2 edema Neurology facial asymmetry left-sided paralysis Objective Data Vital Signs Vital Signs: Vital Signs - 24 hr 02/24/21 13:30 02/24/21 16:03 02/24/21 18:41 Temperature 98.0 F 98.2 F Pulse Rate 58 L 78 82 Respiratory Rate 20 20 14 Blood Pressure 190/70 H 178/78 H 156/83 H Pulse Oximetry 100 99 99 02/24/21 18:42 02/24/21 20:00 02/24/21 20:31 Temperature 98.2 F 98.4 F Pulse Rate 82 68 102 H Respiratory Rate 14 14
[2021-02-25 12:28] LABS: Glucose Point of Care 182 mg/dl (65-105)
[2021-02-25 12:40] LABS: Hematocrit 38.2 % (37.0-47.0); Hemoglobin 11.5 g/dL (12.0-15.0)
[2021-02-25 15:47] LABS: Hematocrit 37.4 % (37.0-47.0); Hemoglobin 11.3 g/dL (12.0-15.0)
[2021-02-25 15:49] LABS: Lactic Acid Reflex 1.7 mmol/L (0.7-2.1)
[2021-02-25] MEDS: FUROSEMIDE INJ 40 MG/4 ML VIAL IV PUSH (16:00)
[2021-02-25 16:01] LABS: Glucose Point of Care 153 mg/dl (65-105)
[2021-02-25 21:37] LABS: Glucose Point of Care 116 mg/dl (65-105)
[2021-02-26] VITALS (10 sets, daily range): BP systolic 111–145; BP diastolic 61–78; PULSE 67–120; RESP 14–18; TEMP 35.8–36.7; O2SAT 91–95
--- NOTE | 2021-02-26 04:17 | PC.NURSE ---
changed acu-check to q6hr due to npo status
[2021-02-26] MEDS: METOPROLOL TARTRATE INJ 5 MG/5 ML VIAL IV PUSH (05:28)
[2021-02-26 05:38] LABS: Glucose Point of Care 126 mg/dl (65-105)
[2021-02-26 07:12] LABS: Basophils Absolute Auto 0.1 K/mm3 (0.0-0.1); Basophils Percent Auto 0.4 % (0.2-1.2); Eosinophils Percent Auto 0.3 % (0-4.4); Hematocrit 33.4 % (37.0-47.0); Immature Granulocyte Absolute 0.04 K/mm3 (0.00-0.031); Immature Granulocyte Percent A 0.3 % (0-0.5); Lymphocytes Absolute Auto 1.03 K/mm3 (0.9-3.2); Lymphocytes Percent Auto 8.8 % (18.3-44.2); Mean Corpuscular HGB Conc 29.9 g/dl (32-36); Mean Corpuscular Hemoglobin 22.5 pg (26-34); Mean Corpuscular Volume 75.2 fl (80-100); Mean Platelet Volume 10.9 fl (7.4-10.4); Monocytes Absolute Auto 1.2 K/mm3 (0.1-0.6); Monocytes Percent Auto 10.1 % (2.6-8.5); Neutrophils Absolute Auto 9.4 K/mm3 (1.3-6.7); Neutrophils Percent Auto 80.1 % (45.5-73.1); Platelet Count Result 216 k/mm3 (150-375); Red Blood Count 4.44 M/mm3 (4.2-5.4); Red Cell Distribution Width 17.9 % (11.5-14.5); White Blood Count 11.7 K/mm3 (4.5-10.0)
[2021-02-26 07:50] LABS: Alanine Aminotransferase 13 U/L (4-35); Albumin Level 3.2 g/dL (3.5-5.1); Alkaline Phosphatase 98 U/L (38-126); Anion Gap 9 mmol/L (8-16); Aspartate Amino Transferase 25 U/L (14-36); Bilirubin,Total 0.4 mg/dL (0.2-1.3); Blood Urea Nitrogen 45 mg/dL (7-17); Calcium 8.5 mg/dL (8.4-10.2); Carbon Dioxide 28 mmol/L (22-30); Chloride 103 mmol/L (98-107); Estimated CRCL calculation 40 ml/min; Estimated Glomerular Filt Rate 48; Glucose 128 mg/dL (65-110); Potassium 3.5 mmol/L (3.4-5.0); Sodium 140 mmol/L (137-145)
--- NOTE | 2021-02-26 07:50 | P.PNIM_ITS ---
Progress Note: A&P Assessment and Plan (1) Hematuria: Qualifiers: Hematuria type: unspecified type Qualified Code(s): R31.9 - Hematuria, unspecified Code(s): R31.9 - Hematuria, unspecified Status: Acute Assessment and Plan: * Associated with UTI continue IV Rocephin follow culture results * Continue Eliquis for now as long as patient does not have blood clots and hemoglobin stable * Continue Guaman catheter (2) Hydronephrosis: Code(s): N13.30 - Unspecified hydronephrosis Status: Acute Assessment and Plan: * abdominal CT shows hydronephrosis * Secondary to urinary retention status post Guaman catheter * abdominal ultrasound shows no hydronephrosis * probably from urinary retention as listed above (3) Diabetes mellitus: Qualifiers: Diabetes mellitus complication detail: without coma Diabetes mellitus complication status: with hypoglycemia Diabetes mellitus fdc insulin use: with buttermaker helper use Diabetes mellitus type: type 2 Qualified Code(s): E11.649 - Type 2 diabetes mellitus with hypoglycemia without coma; Z79.4 - ferry terminal agent (current) use of insulin Code(s): E11.9 - Type 2 diabetes mellitus without complications Status: Acute Assessment and Plan: * glucose on labs 128 * Accu-Cheks AC and HS with sliding scale insulin. Continue with Lantus * trend glucose * adjust therapy as needed (4) Hypertension: Code(s): I10 - Essential (primary) hypertension Status: Acute Assessment and Plan: * blood pressure 134/66 * Continue with lisinopril and metoprolol * trend blood pressure * adjust medications as needed (5) Atrial fibrillation with slow ventricular response: Code(s): I48.91 - Unspecified atrial fibrillation Status: Acute Assessment and Plan: * continue Eliquis and metoprolol. * Monitor CBC (6) Hemiparesis: Code(s): G81.90 - Hemiplegia, unspecified affecting unspecified side Status: Acute Assessment and Plan: * Present on admission secondary to chronic stroke * PT OT eval (7) Elevated lactic acid level: Code(s): R79.89 - Other specified abnormal findings of blood chemistry Status: Acute Assessment and Plan: * normal today at 1.7 * 4.0 upon admission * possible sepsis however patient remains afebrile, no sustained tachycardia, no hypotension * white blood cell count elevated however trending down * infectious source could be UTI or urinary retention * hydronephrosis mentioned in the abdominal CT however renal ultrasound does not show hydronephrosis * IV ceftriaxone (8) Abnormal urinalysis: Code(s): R82.90 - Unspecified abnormal findings in urine Status: Acute Assessment and Plan: * UA suspicious for UTI * urine culture pending * empiric antibiotics started IV ceftriaxone * tailor antibiotics to culture results * monitor urine output (9) Heart failure: Code(s): I50.9 - Heart failure, unspecified Status: Acute Assessment and Plan: * probably chronic * echo from 11/01/2020 shows normal systolic function with an EF of 55-60%, and indeterminate diastolic dysfunction * IV Lasix b.i.d. * will get BNP in the morning * 3 to 4+ pitting edema (10) Anemia: Code(s): D64.9 - Anemia, unspecif
--- NOTE | 2021-02-26 07:50 | PM.IMPN ---
Progress Note: A&P Assessment and Plan (1) Hematuria: Qualifiers: Hematuria type: unspecified type Qualified Code(s): R31.9 - Hematuria, unspecified Code(s): R31.9 - Hematuria, unspecified Status: Acute Assessment and Plan: Associated with UTI continue IV Rocephin follow culture results Continue Eliquis for now as long as patient does not have blood clots and hemoglobin stable Continue Guaman catheter (2) Hydronephrosis: Code(s): N13.30 - Unspecified hydronephrosis Status: Acute Assessment and Plan: abdominal CT shows hydronephrosis Secondary to urinary retention status post Guaman catheter abdominal ultrasound shows no hydronephrosis probably from urinary retention as listed above (3) Diabetes mellitus: Qualifiers: Diabetes mellitus complication detail: without coma Diabetes mellitus complication status: with hypoglycemia Diabetes mellitus intermediate accountant insulin use: with intermediate accountant use Diabetes mellitus type: type 2 Qualified Code(s): E11.649 - Type 2 diabetes mellitus with hypoglycemia without coma; Z79.4 - [facility] (current) use of insulin Code(s): E11.9 - Type 2 diabetes mellitus without complications Status: Acute Assessment and Plan: glucose on labs 128 Accu-Cheks AC and HS with sliding scale insulin. Continue with Lantus trend glucose adjust therapy as needed (4) Hypertension: Code(s): I10 - Essential (primary) hypertension Status: Acute Assessment and Plan: blood pressure 134/66 Continue with lisinopril and metoprolol trend blood pressure adjust medications as needed (5) Atrial fibrillation with slow ventricular response: Code(s): I48.91 - Unspecified atrial fibrillation Status: Acute Assessment and Plan: continue Eliquis and metoprolol. Monitor CBC (6) Hemiparesis: Code(s): G81.90 - Hemiplegia, unspecified affecting unspecified side Status: Acute Assessment and Plan: Present on admission secondary to chronic stroke PT OT eval (7) Elevated lactic acid level: Code(s): R79.89 - Other specified abnormal findings of blood chemistry Status: Acute Assessment and Plan: normal today at 1.7 4.0 upon admission possible sepsis however patient remains afebrile, no sustained tachycardia, no hypotension white blood cell count elevated however trending down infectious source could be UTI or urinary retention hydronephrosis mentioned in the abdominal CT however renal ultrasound does not show hydronephrosis IV ceftriaxone (8) Abnormal urinalysis: Code(s): R82.90 - Unspecified abnormal findings in urine Status: Acute Assessment and Plan: UA suspicious for UTI urine culture pending empiric antibiotics started IV ceftriaxone tailor antibiotics to culture results monitor urine output (9) Heart failure: Code(s): I50.9 - Heart failure, unspecified Status: Acute Assessment and Plan: probably chronic echo from 11/01/2020 shows normal systolic function with an EF of 55-60%, and indeterminate diastolic dysfunction IV Lasix b.i.d. will get BNP in the morning 3 to 4+ pitting edema (10) Anemia: Code(s): D64.9 - Anemia, unspecified Status: Acute Assessment and Plan: H&H trending down 33.4 currently Get anemia labs in the am MCV is low Low H/H could be from iron or B12 It could also be acute blood loss since blood was found in the urine (11) Acute urinary retention: Code(s): R33.8 - Other retention of urine Status: Acute Assessment and Plan: Guaman placed will need a voiding trial consider consulting Urology trend urine output Time Spent With Patient Time with patient: Greater than 35 minutes Subjective Date/time se
[2021-02-26] MEDS: METOPROLOL TARTRATE 12.5 MG TABLET PO ×2 (09:37→21:20)
[2021-02-26] MEDS: FUROSEMIDE INJ 40 MG/4 ML VIAL IV PUSH ×2 (09:37→17:02)
[2021-02-26] MEDS: ACETAMINOPHEN 325 MG TABLET 650 MG PO (09:37)
[2021-02-26] MEDS: GABAPENTIN 100 MG CAPSULE PO ×2 (09:37→17:03)
[2021-02-26] MEDS: APIXABAN 5 MG TABLET PO ×2 (09:37→17:02)
[2021-02-26] MEDS: BACLOFEN 10 MG TABLET PO ×2 (09:38→17:03)
[2021-02-26] MEDS: FLUoxetine HCL 20 MG CAPSULE 40 MG PO (09:38)
[2021-02-26] MEDS: lisinopriL 20 MG TABLET 40 MG PO (09:38)
[2021-02-26] MEDS: ASPIRIN 81 MG CHEWABLE TABLET PO (09:38)
[2021-02-26] MEDS: FAMOTIDINE 20 MG TABLET 40 MG PO (09:38)
[2021-02-26] MEDS: ATORVASTATIN 10 MG TABLET PO (09:38)
[2021-02-26 11:29] LABS: Glucose Point of Care 140 mg/dl (65-105)
[2021-02-26 16:21] LABS: Glucose Point of Care 110 mg/dl (65-105)
[2021-02-26 19:11] LABS: SARS-CoV-2 RNA PCR Negative
[2021-02-26 20:54] LABS: Glucose Point of Care 136 mg/dl (65-105)
[2021-02-26] MEDS: MELATONIN 3 MG TABLET PO (21:20)
[2021-02-26] MEDS: INSULIN GLARGINE (*BKC) 100 UNITS/ML 28 UNITS SUB-Q (21:58)
[2021-02-27] VITALS (7 sets, daily range): BP systolic 140–153; BP diastolic 62–75; PULSE 65–93; RESP 16–22; TEMP 36.1–36.4; O2SAT 96–97
[2021-02-27] MEDS: LEVOTHYROXINE SODIUM 50 MCG TABLET PO (06:06)
[2021-02-27 07:11] LABS: Basophils Absolute Auto 0.1 K/mm3 (0.0-0.1); Basophils Percent Auto 0.7 % (0.2-1.2); Eosinophils Absolute Auto 0.2 K/mm3 (0-0.3); Eosinophils Percent Auto 2.6 % (0-4.4); Hematocrit 32.5 % (37.0-47.0); Hemoglobin 9.3 g/dL (12.0-15.0); Immature Granulocyte Absolute 0.03 K/mm3 (0.00-0.031); Immature Granulocyte Percent A 0.4 % (0-0.5); Immature Reticulocyte Fraction 22.2 % (3.0-15.9); Lymphocytes Absolute Auto 1.13 K/mm3 (0.9-3.2); Lymphocytes Percent Auto 15.7 % (18.3-44.2); Mean Corpuscular HGB Conc 28.6 g/dl (32-36); Mean Corpuscular Hemoglobin 21.7 pg (26-34); Mean Corpuscular Volume 75.9 fl (80-100); Mean Platelet Volume 10.9 fl (7.4-10.4); Monocytes Absolute Auto 0.7 K/mm3 (0.1-0.6); Monocytes Percent Auto 10.2 % (2.6-8.5); Neutrophils Absolute Auto 5.1 K/mm3 (1.3-6.7); Neutrophils Percent Auto 70.4 % (45.5-73.1); Platelet Count Result 211 k/mm3 (150-375); Red Blood Count 4.28 M/mm3 (4.2-5.4); Red Cell Distribution Width 17.7 % (11.5-14.5); Reticulocyte Hemoglobin Conten 23.9 pg (28.2-35.7); Reticulocyte Percent 1.71 % (0.7-4.3); Reticulocytes Absolute 0.07 B/L (32.2-175.7); White Blood Count 7.2 K/mm3 (4.5-10.0)
[2021-02-27 07:32] LABS: NT Pro B Type Natriuretic Pept 543 pg/mL (5-100)
[2021-02-27 07:33] LABS: Alanine Aminotransferase 15 U/L (4-35); Albumin Level 3.2 g/dL (3.5-5.1); Alkaline Phosphatase 99 U/L (38-126); Anion Gap 6 mmol/L (8-16); Aspartate Amino Transferase 26 U/L (14-36); Bilirubin,Total 0.4 mg/dL (0.2-1.3); Blood Urea Nitrogen 41 mg/dL (7-17); Calcium 8.3 mg/dL (8.4-10.2); Carbon Dioxide 34 mmol/L (22-30); Chloride 99 mmol/L (98-107); Estimated CRCL calculation 44 ml/min; Estimated Glomerular Filt Rate 54; Glucose 92 mg/dL (65-110); Lactate Dehydrogenase 511 U/L (313-618); Magnesium 1.9 mg/dL (1.6-2.3); Potassium 3.2 mmol/L (3.4-5.0); Sodium 139 mmol/L (137-145)
[2021-02-27 07:41] LABS: Transferrin 272 mg/dL (206-381)
--- NOTE | 2021-02-27 08:00 | PM.IMPN ---
Progress Note: A&P Assessment and Plan (1) Hematuria: Qualifiers: Hematuria type: unspecified type Qualified Code(s): R31.9 - Hematuria, unspecified Code(s): R31.9 - Hematuria, unspecified Status: Acute Assessment and Plan: New UA shows no improvement Continue Eliquis for now as long as patient does not have blood clots and hemoglobin stable Continue Au catheter, will perform a voiding trial (2) Hydronephrosis: Code(s): N13.30 - Unspecified hydronephrosis Status: Acute Assessment and Plan: abdominal CT shows hydronephrosis Secondary to urinary retention status post Au catheter abdominal ultrasound shows no hydronephrosis probably from urinary retention as listed above (3) Diabetes mellitus: Qualifiers: Diabetes mellitus complication detail: without coma Diabetes mellitus complication status: with hypoglycemia Diabetes mellitus custodial insulin use: with terminal computer operator use Diabetes mellitus type: type 2 Qualified Code(s): E11.649 - Type 2 diabetes mellitus with hypoglycemia without coma; Z79.4 - assisted (current) use of insulin Code(s): E11.9 - Type 2 diabetes mellitus without complications Status: Acute Assessment and Plan: glucose on labs 128 Accu-Cheks AC and HS with sliding scale insulin. Continue with Lantus trend glucose adjust therapy as needed (4) Hypertension: Code(s): I10 - Essential (primary) hypertension Status: Acute Assessment and Plan: blood pressure 153/75 Continue with lisinopril and metoprolol trend blood pressure adjust medications as needed (5) Atrial fibrillation with slow ventricular response: Code(s): I48.91 - Unspecified atrial fibrillation Status: Acute Assessment and Plan: continue Eliquis and metoprolol. Monitor CBC (6) Hemiparesis: Code(s): G81.90 - Hemiplegia, unspecified affecting unspecified side Status: Acute Assessment and Plan: Present on admission secondary to chronic stroke PT OT eval (7) Elevated lactic acid level: Code(s): R79.89 - Other specified abnormal findings of blood chemistry Status: Acute Assessment and Plan: normal today at 1.7 4.0 upon admission possible sepsis however patient remains afebrile, no sustained tachycardia, no hypotension white blood cell count elevated however trending down infectious source could be UTI or urinary retention hydronephrosis mentioned in the abdominal CT however renal ultrasound does not show hydronephrosis IV ceftriaxone (8) Abnormal urinalysis: Code(s): R82.90 - Unspecified abnormal findings in urine Status: Acute Assessment and Plan: UA repeated and UA suspicious for UTI Repeat urine culture pending empiric antibiotics started IV ceftriaxone tailor antibiotics to culture results monitor urine output (9) Heart failure: Code(s): I50.9 - Heart failure, unspecified Status: Acute Assessment and Plan: probably chronic echo from 11/01/2020 shows normal systolic function with an EF of 55-60%, and indeterminate diastolic dysfunction IV Lasix b.i.d. BNP 543 3 to 4+ pitting edema (10) Anemia: Code(s): D64.9 - Anemia, unspecified Status: Acute Assessment and Plan: H&H trending down 9.3/32.5 currently Iron is low at 28, TIBC 339, % saturation 8, transferrin 272 ferritin 16.50, B12 >1000, folate 9.8, TSH 2.080 Iron 325mcg PO BID MCV is low Low H/H could be from iron or B12 Don't think it is blood loss at this time (11) Acute urinary retention: Code(s): R33.8 - Other retention of urine Status: Acute Assessment and Plan: Au placed Will do a voiding trial Replace au if she fails voiding trial consider consulting Urology trend
--- NOTE | 2021-02-27 08:00 | P.PNIM_ITS ---
Progress Note: A&P Assessment and Plan (1) Hematuria: Qualifiers: Hematuria type: unspecified type Qualified Code(s): R31.9 - Hematuria, unspecified Code(s): R31.9 - Hematuria, unspecified Status: Acute Assessment and Plan: * New UA shows no improvement * Continue Eliquis for now as long as patient does not have blood clots and hemoglobin stable * Continue Guaman catheter, will perform a voiding trial (2) Hydronephrosis: Code(s): N13.30 - Unspecified hydronephrosis Status: Acute Assessment and Plan: * abdominal CT shows hydronephrosis * Secondary to urinary retention status post Guaman catheter * abdominal ultrasound shows no hydronephrosis * probably from urinary retention as listed above (3) Diabetes mellitus: Qualifiers: Diabetes mellitus complication detail: without coma Diabetes mellitus complication status: with hypoglycemia Diabetes mellitus equipment operator intermodal yard insulin use: with equipment operator intermodal yard use Diabetes mellitus type: type 2 Qualified Code(s): E11.649 - Type 2 diabetes mellitus with hypoglycemia without coma; Z79.4 - adjunct faculty for medical terminology (current) use of insulin Code(s): E11.9 - Type 2 diabetes mellitus without complications Status: Acute Assessment and Plan: * glucose on labs 128 * Accu-Cheks AC and HS with sliding scale insulin. Continue with Lantus * trend glucose * adjust therapy as needed (4) Hypertension: Code(s): I10 - Essential (primary) hypertension Status: Acute Assessment and Plan: * blood pressure 153/75 * Continue with lisinopril and metoprolol * trend blood pressure * adjust medications as needed (5) Atrial fibrillation with slow ventricular response: Code(s): I48.91 - Unspecified atrial fibrillation Status: Acute Assessment and Plan: * continue Eliquis and metoprolol. * Monitor CBC (6) Hemiparesis: Code(s): G81.90 - Hemiplegia, unspecified affecting unspecified side Status: Acute Assessment and Plan: * Present on admission secondary to chronic stroke * PT OT eval (7) Elevated lactic acid level: Code(s): R79.89 - Other specified abnormal findings of blood chemistry Status: Acute Assessment and Plan: * normal today at 1.7 * 4.0 upon admission * possible sepsis however patient remains afebrile, no sustained tachycardia, no hypotension * white blood cell count elevated however trending down * infectious source could be UTI or urinary retention * hydronephrosis mentioned in the abdominal CT however renal ultrasound does not show hydronephrosis * IV ceftriaxone (8) Abnormal urinalysis: Code(s): R82.90 - Unspecified abnormal findings in urine Status: Acute Assessment and Plan: * UA repeated and UA suspicious for UTI * Repeat urine culture pending * empiric antibiotics started IV ceftriaxone * tailor antibiotics to culture results * monitor urine output (9) Heart failure: Code(s): I50.9 - Heart failure, unspecified Status: Acute Assessment and Plan: * probably chronic * echo from 11/01/2020 shows normal systolic function with an EF of 55-60%, and indeterminate diastolic dysfunction * IV Lasix b.i.d. * BNP 543 * 3 to 4+ pitting edema (10) Anemia: Code(s): D64.9 - Anemia, unspecifie
[2021-02-27 08:02] LABS: Iron 28 ug/dL (37-170)
[2021-02-27 08:11] LABS: Percent Iron Saturation 8 % (20-50)
[2021-02-27] MEDS: GABAPENTIN 100 MG CAPSULE PO ×3 (08:19→17:37)
[2021-02-27] MEDS: POTASSIUM CHLORIDE 20 MEQ TABLET 40 MEQ PO (08:19)
[2021-02-27] MEDS: ASPIRIN 81 MG CHEWABLE TABLET PO (08:19)
[2021-02-27] MEDS: lisinopriL 20 MG TABLET 40 MG PO (08:20)
[2021-02-27] MEDS: FAMOTIDINE 20 MG TABLET 40 MG PO (08:20)
[2021-02-27] MEDS: FLUoxetine HCL 20 MG CAPSULE 40 MG PO (08:20)
[2021-02-27] MEDS: ATORVASTATIN 10 MG TABLET PO (08:20)
[2021-02-27] MEDS: APIXABAN 5 MG TABLET PO ×2 (08:20→17:37)
[2021-02-27] MEDS: BACLOFEN 10 MG TABLET PO ×2 (08:21→17:38)
[2021-02-27] MEDS: METOPROLOL TARTRATE 12.5 MG TABLET PO ×2 (08:21→20:59)
[2021-02-27] MEDS: FUROSEMIDE INJ 40 MG/4 ML VIAL IV PUSH ×2 (08:21→17:38)
[2021-02-27 08:23] LABS: Hypochromasia 1+ (NORMAL); Platelet Estimate Adequate (Adequate); Poikilocytosis 1+ (NORMAL)
[2021-02-27 08:30] LABS: Glucose Point of Care 80 mg/dl (65-105)
[2021-02-27 08:32] LABS: Folic Acid 9.8 ng/mL (2.76->20); Vitamin B12 > 1000.0 pg/mL (239-931)
[2021-02-27 09:34] LABS: Add Urine Microscopic? YES; Appearance Urine Cloudy (Clear); Bilirubin Urine Negative (Negative); Blood Urine 3+ (Negative); Color Urine Yellow (Yellow); Glucose Urine UA Negative (Negative); Ketones Urine Negative (Negative); Leukocyte Esterase Ur 3+ LEU/UL (Negative); Mucus Urine Few /lpf; Nitrate Urine Negative (Negative); Protein Urine 2+ mg/dL (Negative); RBC Urine >75 /hpf (0-2); Specific Grav Ur 1.019 (1.001-1.035); Squamous Epithelial Cell Urine Few /hpf (Few); Urobilinogen Urine Negative mg/dL (<2.0); WBC Clumps Urine Present /HPF; WBC Urine >75 /hpf
[2021-02-27 12:03] LABS: Glucose Point of Care 177 mg/dl (65-105)
[2021-02-27 12:06] LABS: IFOB Positive Control Positive; Immunochemical Fecal Occult Bl Positive (N)
[2021-02-27 12:12] LABS: Glucose Point of Care 178 mg/dl (65-105)
[2021-02-27 17:12] LABS: Glucose Point of Care 176 mg/dl (65-105)
[2021-02-27] MEDS: FERROUS SULFATE 324 MG TABLET PO (17:38)
[2021-02-27] MEDS: INSULIN GLARGINE (*BKC) 100 UNITS/ML 28 UNITS SUB-Q (20:58)
[2021-02-27] MEDS: MELATONIN 3 MG TABLET PO (20:59)
[2021-02-28] VITALS (7 sets, daily range): BP systolic 142–156; BP diastolic 65–94; PULSE 78–104; RESP 12–20; TEMP 36.3–36.7; O2SAT 92–98
[2021-02-28 04:34] LABS: Glucose Point of Care 169 mg/dl (65-105)
[2021-02-28] MEDS: LEVOTHYROXINE SODIUM 50 MCG TABLET PO (06:11)
[2021-02-28 07:54] LABS: Glucose Point of Care 114 mg/dl (65-105)
[2021-02-28] MEDS: METOPROLOL TARTRATE 12.5 MG TABLET PO ×2 (08:31→21:08)
[2021-02-28] MEDS: FAMOTIDINE 20 MG TABLET 40 MG PO (08:42)
[2021-02-28] MEDS: GABAPENTIN 100 MG CAPSULE PO ×3 (08:42→16:42)
[2021-02-28] MEDS: lisinopriL 20 MG TABLET 40 MG PO (08:42)
[2021-02-28] MEDS: FLUoxetine HCL 20 MG CAPSULE 40 MG PO (08:42)
[2021-02-28] MEDS: ASPIRIN 81 MG CHEWABLE TABLET PO (08:42)
[2021-02-28] MEDS: ATORVASTATIN 10 MG TABLET PO (08:42)
[2021-02-28] MEDS: FERROUS SULFATE 324 MG TABLET PO ×2 (08:43→16:41)
[2021-02-28] MEDS: BACLOFEN 10 MG TABLET PO ×2 (08:43→16:41)
[2021-02-28] MEDS: FUROSEMIDE INJ 40 MG/4 ML VIAL IV PUSH (08:43)
[2021-02-28] MEDS: APIXABAN 5 MG TABLET PO ×2 (08:43→16:40)
[2021-02-28 09:28] LABS: Basophils Absolute Auto 0.1 K/mm3 (0.0-0.1); Basophils Percent Auto 0.8 % (0.2-1.2); Eosinophils Absolute Auto 0.2 K/mm3 (0-0.3); Eosinophils Percent Auto 3.7 % (0-4.4); Hematocrit 32.6 % (37.0-47.0); Hemoglobin 9.6 g/dL (12.0-15.0); Immature Granulocyte Absolute 0.01 K/mm3 (0.00-0.031); Immature Granulocyte Percent A 0.2 % (0-0.5); Mean Corpuscular HGB Conc 29.4 g/dl (32-36); Mean Corpuscular Hemoglobin 22.4 pg (26-34); Mean Corpuscular Volume 76.2 fl (80-100); Monocytes Absolute Auto 0.5 K/mm3 (0.1-0.6); Monocytes Percent Auto 8.5 % (2.6-8.5); Neutrophils Absolute Auto 4.5 K/mm3 (1.3-6.7); Neutrophils Percent Auto 73.8 % (45.5-73.1); Platelet Count Result 194 k/mm3 (150-375); Red Blood Count 4.28 M/mm3 (4.2-5.4); Red Cell Distribution Width 17.5 % (11.5-14.5); White Blood Count 6.1 K/mm3 (4.5-10.0)
[2021-02-28 09:54] LABS: Alanine Aminotransferase 16 U/L (4-35); Albumin Level 3.4 g/dL (3.5-5.1); Alkaline Phosphatase 105 U/L (38-126); Anion Gap 5 mmol/L (8-16); Aspartate Amino Transferase 25 U/L (14-36); Bilirubin,Total 0.3 mg/dL (0.2-1.3); Blood Urea Nitrogen 27 mg/dL (7-17); Carbon Dioxide 33 mmol/L (22-30); Chloride 99 mmol/L (98-107); Estimated CRCL calculation 71 ml/min; Estimated Glomerular Filt Rate > 60; Glucose 140 mg/dL (65-110); Magnesium 1.9 mg/dL (1.6-2.3); Potassium 2.9 mmol/L (3.4-5.0); Sodium 137 mmol/L (137-145)
--- NOTE | 2021-02-28 10:45 | P.PNIM_ITS ---
Progress Note: A&P Assessment and Plan (1) Hematuria: Qualifiers: Hematuria type: unspecified type Qualified Code(s): R31.9 - Hematuria, unspecified Code(s): R31.9 - Hematuria, unspecified Status: Acute Assessment and Plan: * New UA shows no improvement * Continue Eliquis for now as long as patient does not have blood clots and hemoglobin stable * Continue Guaman catheter, will perform a voiding trial (2) Hydronephrosis: Code(s): N13.30 - Unspecified hydronephrosis Status: Acute Assessment and Plan: * abdominal CT shows hydronephrosis * Guaman catheter discontinued 02/27/21 * abdominal ultrasound shows no hydronephrosis * probably from urinary retention as listed above (3) Diabetes mellitus: Qualifiers: Diabetes mellitus complication detail: without coma Diabetes mellitus complication status: with hypoglycemia Diabetes mellitus exterminator helper insulin use: with longterm use Diabetes mellitus type: type 2 Qualified Code(s): E11.649 - Type 2 diabetes mellitus with hypoglycemia without coma; Z79.4 - termite treater helper (current) use of insulin Code(s): E11.9 - Type 2 diabetes mellitus without complications Status: Acute Assessment and Plan: * glucose on labs 140 * Accu-Cheks AC and HS with sliding scale insulin. Continue with Lantus * trend glucose * adjust therapy as needed (4) Hypertension: Code(s): I10 - Essential (primary) hypertension Status: Acute Assessment and Plan: * blood pressure 156/94 * Continue with lisinopril and metoprolol * Aldactone 12.5mg PO Daily * trend blood pressure * adjust medications as needed (5) Atrial fibrillation with slow ventricular response: Code(s): I48.91 - Unspecified atrial fibrillation Status: Acute Assessment and Plan: * continue Eliquis and metoprolol. * Monitor CBC (6) Hemiparesis: Code(s): G81.90 - Hemiplegia, unspecified affecting unspecified side Status: Acute Assessment and Plan: * Present on admission secondary to chronic stroke * PT OT eval (7) Elevated lactic acid level: Code(s): R79.89 - Other specified abnormal findings of blood chemistry Status: Acute Assessment and Plan: * normal today at 1.7 * 4.0 upon admission * possible sepsis however patient remains afebrile, no sustained tachycardia, no hypotension * white blood cell count elevated however trending down * infectious source could be UTI or urinary retention * hydronephrosis mentioned in the abdominal CT however renal ultrasound does not show hydronephrosis * IV ceftriaxone (8) Abnormal urinalysis: Code(s): R82.90 - Unspecified abnormal findings in urine Status: Acute Assessment and Plan: * UA repeated and UA suspicious for UTI * Repeat urine culture pending * empiric antibiotics started IV ceftriaxone * tailor antibiotics to culture results * monitor urine output (9) Heart failure: Code(s): I50.9 - Heart failure, unspecified Status: Acute Assessment and Plan: * probably chronic * echo from 11/01/2020 shows normal systolic function with an EF of 55-60%, and indeterminate diastolic dysfunction * IV Lasix b.i.d. * BNP 543 * 3 to 4+ pitting edema (10) Anemia: Code(s): D64.9 - A
--- NOTE | 2021-02-28 10:45 | PM.IMPN ---
Progress Note: A&P Assessment and Plan (1) Hematuria: Qualifiers: Hematuria type: unspecified type Qualified Code(s): R31.9 - Hematuria, unspecified Code(s): R31.9 - Hematuria, unspecified Status: Acute Assessment and Plan: New UA shows no improvement Continue Eliquis for now as long as patient does not have blood clots and hemoglobin stable Continue Guaman catheter, will perform a voiding trial (2) Hydronephrosis: Code(s): N13.30 - Unspecified hydronephrosis Status: Acute Assessment and Plan: abdominal CT shows hydronephrosis Guaman catheter discontinued 02/27/21 abdominal ultrasound shows no hydronephrosis probably from urinary retention as listed above (3) Diabetes mellitus: Qualifiers: Diabetes mellitus complication detail: without coma Diabetes mellitus complication status: with hypoglycemia Diabetes mellitus termination clerk insulin use: with termination clerk use Diabetes mellitus type: type 2 Qualified Code(s): E11.649 - Type 2 diabetes mellitus with hypoglycemia without coma; Z79.4 - [facility] (current) use of insulin Code(s): E11.9 - Type 2 diabetes mellitus without complications Status: Acute Assessment and Plan: glucose on labs 140 Accu-Cheks AC and HS with sliding scale insulin. Continue with Lantus trend glucose adjust therapy as needed (4) Hypertension: Code(s): I10 - Essential (primary) hypertension Status: Acute Assessment and Plan: blood pressure 156/94 Continue with lisinopril and metoprolol Aldactone 12.5mg PO Daily trend blood pressure adjust medications as needed (5) Atrial fibrillation with slow ventricular response: Code(s): I48.91 - Unspecified atrial fibrillation Status: Acute Assessment and Plan: continue Eliquis and metoprolol. Monitor CBC (6) Hemiparesis: Code(s): G81.90 - Hemiplegia, unspecified affecting unspecified side Status: Acute Assessment and Plan: Present on admission secondary to chronic stroke PT OT eval (7) Elevated lactic acid level: Code(s): R79.89 - Other specified abnormal findings of blood chemistry Status: Acute Assessment and Plan: normal today at 1.7 4.0 upon admission possible sepsis however patient remains afebrile, no sustained tachycardia, no hypotension white blood cell count elevated however trending down infectious source could be UTI or urinary retention hydronephrosis mentioned in the abdominal CT however renal ultrasound does not show hydronephrosis IV ceftriaxone (8) Abnormal urinalysis: Code(s): R82.90 - Unspecified abnormal findings in urine Status: Acute Assessment and Plan: UA repeated and UA suspicious for UTI Repeat urine culture pending empiric antibiotics started IV ceftriaxone tailor antibiotics to culture results monitor urine output (9) Heart failure: Code(s): I50.9 - Heart failure, unspecified Status: Acute Assessment and Plan: probably chronic echo from 11/01/2020 shows normal systolic function with an EF of 55-60%, and indeterminate diastolic dysfunction IV Lasix b.i.d. BNP 543 3 to 4+ pitting edema (10) Anemia: Code(s): D64.9 - Anemia, unspecified Status: Acute Assessment and Plan: H&H 9.6/32.6 currently Iron is low at 28, TIBC 339, % saturation 8, transferrin 272 ferritin 16.50, B12 >1000, folate 9.8, TSH 2.080 Iron 325mcg PO BID MCV is low Low H/H could be from iron or B12 Don't think it is blood loss at this time (11) Acute urinary retention: Code(s): R33.8 - Other retention of urine Status: Acute Assessment and Plan: She did urinate post catheter removal post residual void consider consulting Urology trend urine output Time Sp
--- NOTE | 2021-02-28 10:47 | PC.NURSE ---
On 02/28/21, the student, Nelda Teixeira, provided care and completed [facility] documentation on this patient. I have reviewed the student's documentation and agree with the findings.
[2021-02-28 12:11] LABS: Glucose Point of Care 140 mg/dl (65-105)
[2021-02-28] MEDS: POTASSIUM CHLORIDE 20 MEQ PACKET (FOR LIQUID) 40 MEQ PO (14:27)
[2021-02-28] MEDS: SPIRONOLACTONE 12.5 MG TABLET PO (16:39)
[2021-02-28 18:12] LABS: Glucose Point of Care 142 mg/dl (65-105)
[2021-02-28] MEDS: MELATONIN 3 MG TABLET PO (21:33)
[2021-02-28] MEDS: INSULIN GLARGINE (*BKC) 100 UNITS/ML 28 UNITS SUB-Q (21:51)
[2021-02-28 22:54] LABS: Glucose Point of Care 162 mg/dl (65-105)
[2021-03-01] MEDS: LEVOTHYROXINE SODIUM 50 MCG TABLET PO (05:50)
[2021-03-01 06:53] VITALS: BP 149/84; PULSE 89; RESP 17; TEMP 36.4; O2SAT 98
[2021-03-01 07:05] LABS: Basophils Absolute Auto 0.1 K/mm3 (0.0-0.1); Basophils Percent Auto 0.9 % (0.2-1.2); Eosinophils Absolute Auto 0.3 K/mm3 (0-0.3); Eosinophils Percent Auto 5.2 % (0-4.4); Hematocrit 31.7 % (37.0-47.0); Hemoglobin 9.2 g/dL (12.0-15.0); Immature Granulocyte Absolute 0.02 K/mm3 (0.00-0.031); Immature Granulocyte Percent A 0.3 % (0-0.5); Lymphocytes Absolute Auto 0.95 K/mm3 (0.9-3.2); Lymphocytes Percent Auto 16.5 % (18.3-44.2); Mean Corpuscular Hemoglobin 22.2 pg (26-34); Mean Corpuscular Volume 76.4 fl (80-100); Mean Platelet Volume 11.3 fl (7.4-10.4); Monocytes Absolute Auto 0.6 K/mm3 (0.1-0.6); Monocytes Percent Auto 9.5 % (2.6-8.5); Neutrophils Absolute Auto 3.9 K/mm3 (1.3-6.7); Neutrophils Percent Auto 67.6 % (45.5-73.1); Platelet Count Result 205 k/mm3 (150-375); Red Blood Count 4.15 M/mm3 (4.2-5.4); Red Cell Distribution Width 17.6 % (11.5-14.5); White Blood Count 5.8 K/mm3 (4.5-10.0)
[2021-03-01 07:23] LABS: Alanine Aminotransferase 15 U/L (4-35); Albumin Level 3.2 g/dL (3.5-5.1); Alkaline Phosphatase 90 U/L (38-126); Anion Gap 6 mmol/L (8-16); Aspartate Amino Transferase 31 U/L (14-36); Bilirubin,Total 0.4 mg/dL (0.2-1.3); Blood Urea Nitrogen 26 mg/dL (7-17); Calcium 8.2 mg/dL (8.4-10.2); Carbon Dioxide 32 mmol/L (22-30); Chloride 104 mmol/L (98-107); Estimated CRCL calculation 71 ml/min; Estimated Glomerular Filt Rate > 60; Glucose 115 mg/dL (65-110); Magnesium 2.1 mg/dL (1.6-2.3); Potassium 3.5 mmol/L (3.4-5.0); Sodium 142 mmol/L (137-145)
[2021-03-01 08:19] LABS: Glucose Point of Care 126 mg/dl (65-105)
[2021-03-01] MEDS: BACLOFEN 10 MG TABLET PO ×2 (09:56→17:07)
[2021-03-01] MEDS: GABAPENTIN 100 MG CAPSULE PO ×3 (09:57→17:08)
[2021-03-01] MEDS: FUROSEMIDE INJ 40 MG/4 ML VIAL IV PUSH (09:57)
[2021-03-01 09:58] VITALS: PULSE 90
[2021-03-01] MEDS: ASPIRIN 81 MG CHEWABLE TABLET PO (09:58)
[2021-03-01] MEDS: APIXABAN 5 MG TABLET PO ×2 (09:58→17:07)
[2021-03-01] MEDS: METOPROLOL TARTRATE 12.5 MG TABLET PO (09:58)
[2021-03-01] MEDS: FLUoxetine HCL 20 MG CAPSULE 40 MG PO (09:58)
[2021-03-01] MEDS: ATORVASTATIN 10 MG TABLET PO (09:59)
[2021-03-01] MEDS: lisinopriL 20 MG TABLET 40 MG PO (09:59)
[2021-03-01] MEDS: FAMOTIDINE 20 MG TABLET 40 MG PO (09:59)
[2021-03-01] MEDS: SPIRONOLACTONE 12.5 MG TABLET PO (09:59)
[2021-03-01] MEDS: FERROUS SULFATE 324 MG TABLET PO ×2 (09:59→17:06)
--- NOTE | 2021-03-01 11:15 | P.DS_ITS ---
DS: Admitting Diagnosis Discharge Date Date of Service: 03/01/21 11:15am Admitting Diagnosis Urinary retention with UTI DS: Discharge Diagnosis Discharge Diagnosis (1) Hematuria: Qualifiers: Hematuria type: unspecified type Qualified Code(s): R31.9 - Hematuria, unspecified Code(s): R31.9 - Hematuria, unspecified Status: Acute Assessment and Plan: * New UA shows no improvement * Continue Eliquis for now as long as patient does not have blood clots and hemoglobin stable * Continue Guaman catheter, will perform a voiding trial (2) Hydronephrosis: Code(s): N13.30 - Unspecified hydronephrosis Status: Acute Assessment and Plan: * abdominal CT shows hydronephrosis * Guaman catheter discontinued 02/27/21 * abdominal ultrasound shows no hydronephrosis * probably from urinary retention as listed above (3) Diabetes mellitus: Qualifiers: Diabetes mellitus complication detail: without coma Diabetes mellitus complication status: with hypoglycemia Diabetes mellitus terminal operator insulin use: with intermediate use Diabetes mellitus type: type 2 Qualified Code(s): E11.649 - Type 2 diabetes mellitus with hypoglycemia without coma; Z79.4 - lobsterman (current) use of insulin Code(s): E11.9 - Type 2 diabetes mellitus without complications Status: Acute Assessment and Plan: * glucose on labs 140 * Accu-Cheks AC and HS with sliding scale insulin. Continue with Lantus * trend glucose * adjust therapy as needed (4) Hypertension: Code(s): I10 - Essential (primary) hypertension Status: Acute Assessment and Plan: * blood pressure 156/94 * Continue with lisinopril and metoprolol * Aldactone 12.5mg PO Daily * trend blood pressure * adjust medications as needed (5) Atrial fibrillation with slow ventricular response: Code(s): I48.91 - Unspecified atrial fibrillation Status: Acute Assessment and Plan: * continue Eliquis and metoprolol. * Monitor CBC (6) Hemiparesis: Code(s): G81.90 - Hemiplegia, unspecified affecting unspecified side Status: Acute Assessment and Plan: * Present on admission secondary to chronic stroke * PT OT eval (7) Elevated lactic acid level: Code(s): R79.89 - Other specified abnormal findings of blood chemistry Status: Acute Assessment and Plan: * normal today at 1.7 * 4.0 upon admission * possible sepsis however patient remains afebrile, no sustained tachycardia, no hypotension * white blood cell count elevated however trending down * infectious source could be UTI or urinary retention * hydronephrosis mentioned in the abdominal CT however renal ultrasound does not show hydronephrosis * IV ceftriaxone (8) Abnormal urinalysis: Code(s): R82.90 - Unspecified abnormal findings in urine Status: Acute Assessment and Plan: * UA repeated and UA suspicious for UTI * Repeat urine culture pending * empiric antibiotics started IV ceftriaxone * tailor antibiotics to culture results * monitor urine output (9) Heart failure: Code(s): I50.9 - Heart failure, unspecified Status: Acute Assessment and Plan: * probably chronic * echo from 11/01/2020 shows normal systolic function with an EF of 55-60%, and indeterminate diastolic dysfunctio
--- NOTE | 2021-03-01 11:15 | PM.DS ---
DS: Admitting Diagnosis Discharge Date Date of Service: 03/01/21 11:15am Admitting Diagnosis Urinary retention with UTI DS: Discharge Diagnosis Discharge Diagnosis (1) Hematuria: Qualifiers: Hematuria type: unspecified type Qualified Code(s): R31.9 - Hematuria, unspecified Code(s): R31.9 - Hematuria, unspecified Status: Acute Assessment and Plan: New UA shows no improvement Continue Eliquis for now as long as patient does not have blood clots and hemoglobin stable Continue Guaman catheter, will perform a voiding trial (2) Hydronephrosis: Code(s): N13.30 - Unspecified hydronephrosis Status: Acute Assessment and Plan: abdominal CT shows hydronephrosis Guaman catheter discontinued 02/27/21 abdominal ultrasound shows no hydronephrosis probably from urinary retention as listed above (3) Diabetes mellitus: Qualifiers: Diabetes mellitus complication detail: without coma Diabetes mellitus complication status: with hypoglycemia Diabetes mellitus sample maker original insulin use: with sample maker original use Diabetes mellitus type: type 2 Qualified Code(s): E11.649 - Type 2 diabetes mellitus with hypoglycemia without coma; 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 Continue with Lantus trend glucose adjust therapy as needed (4) Hypertension: Code(s): I10 - Essential (primary) hypertension Status: Acute Assessment and Plan: blood pressure 156/94 Continue with lisinopril and metoprolol Aldactone 12.5mg PO Daily trend blood pressure adjust medications as needed (5) Atrial fibrillation with slow ventricular response: Code(s): I48.91 - Unspecified atrial fibrillation Status: Acute Assessment and Plan: continue Eliquis and metoprolol. Monitor CBC (6) Hemiparesis: Code(s): G81.90 - Hemiplegia, unspecified affecting unspecified side Status: Acute Assessment and Plan: Present on admission secondary to chronic stroke PT OT eval (7) Elevated lactic acid level: Code(s): R79.89 - Other specified abnormal findings of blood chemistry Status: Acute Assessment and Plan: normal today at 1.7 4.0 upon admission possible sepsis however patient remains afebrile, no sustained tachycardia, no hypotension white blood cell count elevated however trending down infectious source could be UTI or urinary retention hydronephrosis mentioned in the abdominal CT however renal ultrasound does not show hydronephrosis IV ceftriaxone (8) Abnormal urinalysis: Code(s): R82.90 - Unspecified abnormal findings in urine Status: Acute Assessment and Plan: UA repeated and UA suspicious for UTI Repeat urine culture pending empiric antibiotics started IV ceftriaxone tailor antibiotics to culture results monitor urine output (9) Heart failure: Code(s): I50.9 - Heart failure, unspecified Status: Acute Assessment and Plan: probably chronic echo from 11/01/2020 shows normal systolic function with an EF of 55-60%, and indeterminate diastolic dysfunction IV Lasix b.i.d. BNP 543 3 to 4+ pitting edema (10) Anemia: Code(s): D64.9 - Anemia, unspecified Status: Acute Assessment and Plan: H&H 9.6/32.6 currently Iron is low at 28, TIBC 339, % saturation 8, transferrin 272 ferritin 16.50, B12 >1000, folate 9.8, TSH 2.080 Iron 325mcg PO BID MCV is low Low H/H could be from iron or B12 Don't think it is blood loss at this time (11) Acute urinary retention: Code(s): R33.8 - Other retention of urine Status: Acute Assessment and Plan:
[2021-03-01 12:30] VITALS: BP 103/46; PULSE 97
[2021-03-01 12:47] LABS: Glucose Point of Care 178 mg/dl (65-105)
[2021-03-01 14:00] VITALS: BP 142/87; PULSE 91; RESP 16; TEMP 36.4; O2SAT 95
[2021-03-01 16:51] LABS: Glucose Point of Care 141 mg/dl (65-105)
== END 2021-03-01 18:30 | disposition home health service (06) | DRG 696 ==
LOC: ANHED 16:25 → ANH3MEDSUR 17:35
PROVIDERS: Internal Medicine; Nurse Practitioner; Admitting Provider Internal Medicine; Emergency Provider Nurse Practitioner; PCP Internal Medicine; Visit Provider Nurse Practitioner
DX: R31.9 Hematuria, unspecified (principal); I69.354 Hemiplegia and hemiparesis following cerebral infarction affecting left non-dominant side; N13.30 Unspecified hydronephrosis; R33.9 Retention of urine, unspecified; R82.90 Unspecified abnormal findings in urine; Z20.822 Contact with and (suspected) exposure to COVID-19; D64.9 Anemia, unspecified; I48.91 Unspecified atrial fibrillation; R79.89 Other specified abnormal findings of blood chemistry; I25.10 Atherosclerotic heart disease of native coronary artery without angina pectoris; I11.0 Hypertensive heart disease with heart failure; I50.9 Heart failure, unspecified; E11.649 Type 2 diabetes mellitus with hypoglycemia without coma; E11.51 Type 2 diabetes mellitus with diabetic peripheral angiopathy without gangrene; G47.33 Obstructive sleep apnea (adult) (pediatric); E78.5 Hyperlipidemia, unspecified; E03.9 Hypothyroidism, unspecified; Z79.01 Long term (current) use of anticoagulants; Z79.4 Long term (current) use of insulin; Z79.899 Other long term (current) drug therapy; Z74.01 Bed confinement status; Z87.891 Personal history of nicotine dependence; Z98.42 Cataract extraction status, left eye; Z98.41 Cataract extraction status, right eye; Z96.1 Presence of intraocular lens
CPT/HCPCS: 36415; 71045; 74177; 76775; 80048; 80053; 81001; 82248; 82274; 82607; 82728; 82746; 82948; 83540; 83550; 83605; 83615; 83690; 83735; 83880; 84443; 84466; 85014; 85018; 85025; 85046; 85055; 85610; 85730; 87040; 87086; 87088; 92610; 96365; 97161; 97165; 99285; A9270; C9803; G0378; J0696; J1815; J1940; Q9967; U0003; U0005

== ENCOUNTER 2022-08-08 11:06 | Inpatient (IN) | payer MEDICARE, BC, SELFPAY ==
[2022-08-08] VITALS (32 sets, daily range): BP systolic 134–217; BP diastolic 60–170; PULSE 51–99; RESP 11–23; TEMP 35.7–36.7; O2SAT 95–100; BMI 47.5
--- NOTE | ~2022-08-08 | CT_ITS ---
EXAMINATION: CT brain wo con DATE: 08/08/2022 12:20 INDICATION: Transient alteration of awareness. TECHNIQUE: Computed tomography (CT) of the head was performed without intravenous contrast. The dose- length product was 681.00 mGy-cm. Automated exposure control and iterative reconstruction technique w ere employed. COMPARISON: CT dated 02/24/2020 FINDINGS: There is a large chronic right frontal-parietal lobe infarction with encephalomalacia. Gene ralized atrophy. There is a chronic left lacunar infarction. There are scattered moderate periventric ular and subcortical white matter changes, most likely related to small vessel ischemic disease (micr oangiopathy). No ventriculomegaly or midline shift. No acute intracranial hemorrhage, infarction, mas s or mass effect. Minimal mucosal thickening of the paranasal sinuses. Mastoids are pneumatized. No d epressed skull fractures. IMPRESSION: 1. Chronic right frontal-parietal lobe and left lacunar infarctions. 2: No acute intracranial abnormality. 3: Chronic age-related findings. Reviewed, dictated and finalized at location L.
--- NOTE | ~2022-08-08 | XR_ITS ---
EXAMINATION: XR shoulder LT min 2V DATE: 08/08/2022 13:24 INDICATION: Left shoulder dislocation. TECHNIQUE: 4 views of left shoulder were obtained. COMPARISON: Left humerus radiographs 11/05/2020, chest CT 10/31/2020 FINDINGS: There is variable inferior subluxation of humeral head with respect to glenoid, likely seco ndary to a glenohumeral joint effusion. No dislocation. No fracture. There is moderate osteoarthritis of the acromioclavicular joint and mild osteoarthritis of glenohumeral joint. There is an enthesophy te at greater tuberosity. IMPRESSION: 1. Left glenohumeral joint effusion. 2. Polyarticular osteoarthritis. Reviewed, dictated and finalized at location A.
--- NOTE | ~2022-08-08 | CT_ITS ---
EXAMINATION: CT abdomen pelvis w con DATE: 08/08/2022 12:21 INDICATION: Generalized abdominal pain. Vaginal bleeding. TECHNIQUE: Computed tomography (CT) of the abdomen and pelvis was performed with 100 mL Omnipaque 350 intravenous contrast. Automated exposure control and iterative reconstruction technique were employe d. The dose-length product was 1453.26 mGy-cm. COMPARISON: CT abdomen and pelvis 02/24/2021 FINDINGS: The visualized portions of the lung bases demonstrate mild atelectasis. There is a small ri ght pleural effusion. Cardiomegaly is noted. There is a small pericardial effusion. There are coronar y artery calcifications. The liver, gallbladder, spleen, pancreas, and adrenal glands are normal. The re is cortical thinning of the kidneys. There is a 10 mm cyst in left kidney. There is calcified athe rosclerosis of the aorta and many of the other arteries. There is an umbilical hernia containing fat. The bladder is decompressed by a Guaman catheter. There is a small sliding hiatal hernia. There is a left inguinal hernia containing fat. There is diverticulosis of the colon without evidence of diverti culitis. There is a large volume of stool in the colon. There are no dilated loops of bowel. The appe ndix is normal. There are no pathologically enlarged lymph nodes. There are calcified fibroids in the uterus. There is no free intraperitoneal fluid. There is moderate lumbar spondylosis and mild thorac ic spondylosis. IMPRESSION: 1. Small right pleural effusion. 2. Small pericardial effusion. 3. Small sliding hiatal hernia. 4. Umbilical hernia and small left inguinal hernia containing fat. Reviewed, dictated and finalized at location A.
--- NOTE | ~2022-08-08 | US_ITS ---
EXAMINATION: US venous doppler [facility] DATE: 08/09/2022 08:41 INDICATION: Lower limb edema. TECHNIQUE: Grayscale ultrasound images without and with compression and Doppler ultrasound images of the bilateral lower extremity veins were obtained. COMPARISON: None. FINDINGS: The visualized portions of right common femoral vein, profunda (deep) femoral vein, femoral vein, pop liteal vein, posterior tibial veins, and greater saphenous vein outflow are patent. The visualized portions of left common femoral vein, profunda femoral vein, femoral vein, popliteal v ein, peroneal veins, posterior tibial veins, and greater saphenous vein outflow are patent. IMPRESSION: 1. No deep venous thrombosis. Reviewed, dictated and finalized at location A.
--- NOTE | ~2022-08-08 | XR_ITS ---
XR chest 1V portable 08/08/2022 12:26 Indication: Weakness. Procedure: AP view of the chest Comparison: Comparison to multiple prior studies sequentially, with oldest reviewed study dated 06/2019. Findings: Cardiomegaly with mild interstitial edema. No pleural effusion or pneumothorax. No acute os seous abnormality. There is abnormal alignment of the left shoulder suggesting dislocation. Recommend dedicated left shoulder series. Impression: 1: Cardiomegaly with mild interstitial edema. 2: Possible left shoulder dislocation. Recommend correlation with dedicated shoulder series. Reviewed, dictated and finalized at location L. Impression: 1: Cardiomegaly with mild interstitial edema. 2: Possible left shoulder dislocation. Recommend correlation with dedicated oulder series.
--- NOTE | 2022-08-08 11:13 | ECG_ITS ---
Measurements Intervals [place] Rate: 57 P: [place]: 0 QRS: -12 QRSD: 91 T: 23 QT: 429 QTc: 419 Interpretive Statements ATRIAL FIBRILLATION WITH SLOW VENTRICULAR RESPONSE ANTEROSEPTAL INFARCT, AGE INDETERMINATE INFERIOR INFARCT, AGE INDETERMINATE BASELINE ARTIFACT- I, II, AVR, AVL, AVF ABNORMAL ECG COMPARED TO ECG 10/31/2020 14:05:21 HEART RATE HAS DECREASED Electronically Signed On 08-09-2022 11:52:57 CDT by Juancarlos Carrizales D.O.
--- NOTE | 2022-08-08 11:20 | ED.GENADULT ---
HPI - General Adult General Chief complaint: Weakness <Nighat Oviedo PA-C - Last Filed: 08/08/22 17:36> Stated complaint: weakness/ vag bleed <Nighat Oviedo PA-C - Last Filed: 08/08/22 17:36> Time Seen by Provider: 08/08/22 11:09 <Nighat Oviedo PA-C - Last Filed: 08/08/22 17:36> History of Present Illness HPI narrative: Patient is a 81-year-old female with history of atrial fibrillation on Eliquis, CVA with residual left-sided hemiplegia, diabetes, here due to transient alteration in awareness. According to EMS, patient's family members were concerned because she was alert but was not responding to their questions this morning. When EMS arrived to the household patient was alert and oriented x4 at her baseline. Currently complaining of some shortness of breath but no other complaints. She is currently being treated for UTI and has a Guaman in place. 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 She has noticed blood when she changes her diaper and when she wipes her vaginal area for the past several weeks. Reports bright pink tinge. Unsure if it is coming from the Guaman or vagina but denies seeing any blood in the stool/rectum. <Nighat Oviedo PA-C - Last Filed: 08/08/22 17:36> Related Data Home medications: Home Medications Medication Instructions Recorded Confirmed acetaminophen 650 mg tablet 650 mg PO Q4H PRN Pain 10/31/20 02/24/21 apixaban 5 mg tablet (Eliquis) 5 mg PO BID 10/31/20 02/24/21 aspirin 81 mg tablet 81 mg PO DAILY 10/31/20 02/24/21 atorvastatin 10 mg tablet 10 mg PO DAILY 10/31/20 02/24/21 baclofen 10 mg tablet 10 mg PO BID 10/31/20 02/24/21 famotidine 40 mg tablet 40 mg PO DAILY 10/31/20 02/24/21 fluoxetine 40 mg capsule 40 mg PO DAILY 10/31/20 02/24/21 gabapentin 100 mg capsule 100 mg PO TID 10/31/20 02/24/21 insulin glargine 100 unit/mL (3 28 unit subcut HS 10/31/20 02/24/21 mL) subcutaneous pen (Lantus Solostar U-100 Insulin) levothyroxine 50 mcg tablet 50 mcg PO DAILY 10/31/20 02/24/21 lisinopril 40 mg tablet 40 mg PO DAILY 10/31/20 02/24/21 metoprolol tartrate 25 mg tablet 12.5 mg PO BID 10/31/20 02/24/21 polyethylene glycol 3350 17 17 g PO DAILY PRN Constipation 10/31/20 02/24/21 gram/dose oral powder ramelteon 8 mg tablet 8 mg PO HS 10/31/20 02/24/21 spironolactone 25 mg tablet 12.5 mg PO DAILY 10/31/20 10/31/20 tramadol 50 mg tablet 50 mg PO Q6H PRN Pain 10/31/20 02/24/21 <Nighat Oviedo PA-C - Last Filed: 08/08/22 17:36> Allergies/adverse reactions: Allergies Allergy/AdvReac Type Severity Reaction Status Date / Time No Known Allergies Allergy Verified 02/24/21 14:30 <Nighat Oviedo PA-C - Last Filed: 08/08/22 17:36> Review of Systems Review of Systems: Gen: Denies fevers or chills Eyes: Denies eye pain or visual change ENT: Denies congestion Respiratory: Denies shortness of breath or cough CV: Denies chest pain or palpitations GI: Denies abdominal pain nausea, emesis or diarrhea reports vaginal bleeding. Denies burning, urgency, frequency or hematuria Musculoskeletal: Denies back pain or muscle pain Neuro: Denies numbness, tingling, weakness or focal weakness Skin: Denies rash Except as documented, all other systems reviewed and negative <Nighat Oviedo PA-C - Last Filed: 08/08/22 17:36> [facility] Past Medical History Medical History: Medical History (Updated 08/08/22 @ 17:02 by Nighat Oviedo PA-C) Atrial fibrillation Cerebrovascular accident (02/2020) Residual left hemiplegia. Essential hypertension Hyperlipidemia Hypothyroidism Obstructive sleep apnea Intolerant to CPAP Peripheral artery disease Type 2 diabetes mellitus <ANTHONY WeinbergC - Last Filed: 08/08/22 17:36> Surgical History Surgical History: Surgical History (Updated 08/08/22 @ 16:16 by Sommer Horton PA-C) History of cataract extraction with lens replacem
[2022-08-08 11:40] LABS: Basophils Percent Auto 0.7 % (0.2-1.2); Eosinophils Absolute Auto 0.3 K/mm3 (0-0.3); Eosinophils Percent Auto 7.4 % (0-4.4); Hemoglobin 10.3 g/dL (12.0-15.0); Immature Granulocyte Absolute 0.01 K/mm3 (0.00-0.031); Immature Granulocyte Percent A 0.2 % (0-0.5); Lymphocytes Absolute Auto 0.72 K/mm3 (0.9-3.2); Lymphocytes Percent Auto 15.8 % (18.3-44.2); Mean Corpuscular HGB Conc 29.4 g/dl (32-36); Mean Corpuscular Hemoglobin 26.1 pg (26-34); Mean Corpuscular Volume 88.6 fl (80-100); Mean Platelet Volume 11.3 fl (7.4-10.4); Monocytes Absolute Auto 0.4 K/mm3 (0.1-0.6); Neutrophils Absolute Auto 3.1 K/mm3 (1.3-6.7); Neutrophils Percent Auto 66.9 % (45.5-73.1); Platelet Count Result 155 k/mm3 (150-375); Red Blood Count 3.95 M/mm3 (4.2-5.4); Red Cell Distribution Width 14.6 % (11.5-14.5); White Blood Count 4.6 K/mm3 (4.5-10.0)
[2022-08-08 11:50] LABS: Alanine Aminotransferase 16 U/L (6-35); Albumin Level 3.2 g/dL (3.5-5.1); Alkaline Phosphatase 82 U/L (38-126); Anion Gap 2 mmol/L (8-16); Aspartate Amino Transferase 25 U/L (14-36); Bilirubin,Total 0.3 mg/dL (0.2-1.3); Blood Urea Nitrogen 26 mg/dL (7-17); Calcium 7.9 mg/dL (8.4-10.2); Carbon Dioxide 34 mmol/L (22-30); Chloride 105 mmol/L (98-107); Estimated CRCL calculation 85 ml/min; Estimated Glomerular Filt Rate > 60; Glucose 122 mg/dL (65-110); Potassium 3.9 mmol/L (3.4-5.0); Sodium 141 mmol/L (137-145)
[2022-08-08 11:59] LABS: INR 1.2; Prothrombin Time 16.3 Seconds (11.1-14.7)
[2022-08-08 12:00] LABS: Hypochromasia 1+ (NORMAL); Partial Thromboplastin Time 34.6 SECONDS (22.3-36.8); Platelet Estimate Adequate (Adequate)
[2022-08-08 12:01] LABS: Schistocytes Rare (NORMAL)
[2022-08-08 12:02] LABS: Troponin I 0.013 ng/mL (0.000-0.034)
[2022-08-08 12:09] LABS: Add Urine Microscopic? YES; Appearance Urine Turbid (Clear); Bacteria Urine 4+ /hpf; Bilirubin Urine Negative (Negative); Blood Urine 3+ (Negative); Calcium Oxalate Crystals Urine Present /hpf; Color Urine Dark Yellow (Yellow); Glucose Urine UA Negative (Negative); Ketones Urine Trace mg/dL (Negative); Leukocyte Esterase Ur 3+ LEU/UL (Negative); Need Manual Microscopic Reviewed; Nitrate Urine Negative (Negative); Protein Urine 2+ mg/dL (Negative); RBC Urine >100 /hpf (0-2); Specific Grav Ur 1.026 (1.001-1.035); Squamous Epithelial Cell Urine Occasional /hpf (Few); WBC Urine >100 /hpf; pH Urine 5.5 (5.0-9.0)
[2022-08-08 12:51] LABS: Glucose Point of Care 114 mg/dl (65-105)
[2022-08-08] MEDS: FUROSEMIDE INJ 40 MG/4 ML VIAL IV PUSH (13:40)
[2022-08-08 13:58] LABS: NT Pro B Type Natriuretic Pept 1490 pg/mL (19.9-100)
[2022-08-08] MEDS: hydrALAZINE HCL 20 MG/ML VIAL 10 MG IV PUSH (16:07)
--- NOTE | 2022-08-08 16:14 | PM.IMHP ---
H&P: HPI History of Present Illness Date/Time: 08/08/22 22:00 Chief Complaint: Difficult to arouse, weakness. Narrative: This is a 80-year-old female with history of stroke and resultant left-sided hemiplegia, hypertension, hyperlipidemia, paroxysmal atrial fibrillation on chronic anticoagulation, type 2 diabetes mellitus, and obstructive sleep apnea intolerant to CPAP who presented to the emergency department via EMS from home for evaluation of weakness after she was difficult to arouse this morning. Patient provides the following history; family members provides additional information with the patient's permission. The patient tells me that she has been feeling in her usual state of health. This morning her family members had difficulties waking her up and they called 911. On EMS arrival she was alert and oriented x4. Her blood pressure was 168/117 and family members related that she is currently being treated for urinary tract infection. They also report that she has had some light blood coming from the vagina and she was referred to a global lead. She was afebrile on arrival to the ED. blood pressures have been in the 180s to 190 systolic. Labs were significant for a WBC count of 4.6, hemoglobin 10.3, sodium 141, potassium 3.9, BUN 26, creatinine 0.50, glucose 200, proBNP 1490. Urine was turbid with 2+ protein, trace ketones, 3+ blood, 3+ leukocyte esterase, greater than 100 RBC and WBC, and 4+ bacteria. Head CT showed no acute abnormalities. Chest x-ray showed cardiomegaly with mild interstitial edema and possible left shoulder dislocation. Left shoulder x-ray showed left glenohumeral joint effusion polyarticular osteoarthritis. CT abdomen pelvis shows small right pleural effusion, small pericardial effusion, small sliding hiatal hernia, umbilical hernia, and a small left inguinal hernia containing fat. She was given a dose of Rocephin in the ER for the abnormal UA and hydralazine for her elevated blood pressures. I was asked to admit the patient for CHF exacerbation. At the time my evaluation she is sitting up in bed and is watching television she has no complaints. She denies fever, chills, sweats, cold and flu symptoms, chest pain, shortness a breath, nausea, vomiting, abdominal pain, back pain, body aches, and diarrhea. Review of Systems Review of Systems: Twelve systems were reviewed and are negative except for as per HPI. [facility] Past Medical History Medical History (Updated 08/09/22 @ 00:01 by Sommer Horton PA-C) Atrial fibrillation Cerebrovascular accident (02/2020) Residual left hemiplegia. Chronic anemia Chronic anticoagulation Essential hypertension Hyperlipidemia Hypothyroidism Obstructive sleep apnea Intolerant to CPAP Peripheral artery disease Type 2 diabetes mellitus Surgical History Surgical History (Updated 08/08/22 @ 16:16 by Sommer Horton PA-C) History of cataract extraction with lens replacement History of right-sided carotid endarterectomy Family History Family History Father Heart disease Mother Heart disease Social History Social History (Updated 08/08/22 @ 23:52 by Sommer Horton PA-C) Social History: Surrogate medical decision maker: Lois Gomez, daughter. Code status: Full code. Smoking packs per day: 1 Smoking cigarettes per day: 20.0 Years smoked: 44 Smoking pack-years: 44.00 Smoking status: Former smoker Alcohol intake: never Substance use: never Substance use type: does not use Lack of Transportation: No Lack of Food: Never True Current Housing: I Have Housing Concerned About Future Housing: No Difficulty Paying Gas/Electric Bills: No Difficulty Paying for Meds: No Currently Unemployed: No Education: High School Diploma/GED Difficulty w/ Childcare or Family Care: No Living arrangements: with family Additional living arrangements comments: Patient tells me she lives
[2022-08-08 20:57] LABS: Glucose Point of Care 200 mg/dl (65-105)
[2022-08-09] VITALS (15 sets, daily range): BP systolic 152–160; BP diastolic 66–98; PULSE 68–89; RESP 14–18; TEMP 36.4–37.8; O2SAT 95–97
--- NOTE | 2022-08-09 00:05 | ECHO_ITS ---
Patient Info Name: Kristy Cook Age: 81 years : 1940 Gender: Female Ht: 61 in Wt: 251 lbs BSA: 2.29 m2 HR: 75 bpm BP: 157 / 98 mmHg Technical Quality: Good Exam Date: 08/09/2022 1:40 PM Exam Location: [facility] Patient Status: Inpatient Admit Date: 08/09/2022 Staff Ordering Physician: Sommer Horton PA-C [employer]: Radha Sanderson RDCS Attending Provider: Sung Howell MD Referring Physician: Sol TIPTON; Exam Type: CA echo doppler color flow Study Info Indications I10 - Essential (primary) hypertension I48.1 - Persistent atrial fibrillation I50.9 - Heart failure, unspecified Complete two-dimensional, color flow and Doppler transthoracic echocardiogram is performed. Summary 1. Complete two-dimensional, color flow and Doppler transthoracic echocardiogram is performed. 2. Left ventricular chamber dimension is normal. 3. Left ventricular systolic function is normal, estimated at 55-60%. 4. There is mild concentric increased left ventricular wall thickness. 5. The left ventricular diastolic function is abnormal. 6. E/e' 15 is elevated. 7. Atrial fibrillation. 8. Left atrial chamber dimension is moderately enlarged. 9. There is moderate aortic valve sclerosis. 10. There is mild to moderate aortic valve stenosis with a peak velocity of 229 cm/s, mean gradient of 9 mmHg, and aortic valve area of 1.3 cm2. 11. There is mild aortic valve regurgitation. 12. There is mild mitral valve regurgitation. 13. No pulmonary hypertension, estimated pulmonary arterial systolic pressure is 18 mmHg. 14. There is mild-moderate circumferential pericardial effusion measuring about 1.5 cm. Left Ventricle E/e' 15 is elevated. Atrial fibrillation. Left ventricular chamber dimension is normal. Left ventricular systolic function is normal, estimated at 55-60%. There is mild concentric increased left ventricular wall thickness. The left ventricular diastolic function is abnormal. Right Ventricle Right ventricular chamber dimension is normal. Right ventricular systolic function is normal. Left Atria Left atrial chamber dimension is moderately enlarged. Right Atria Right atrial chamber dimension is normal. Aortic Valve The aortic valve is trileaflet. There is moderate aortic valve sclerosis. There is mild to moderate aortic valve stenosis with a peak velocity of 229 cm/s, mean gradient of 9 mmHg, and aortic valve area of 1.3 cm2. There is mild aortic valve regurgitation. Pulmonic Valve There is no pulmonic regurgitation. Mitral Valve There is no mitral valve stenosis. There is mild mitral valve regurgitation. Tricuspid Valve There is no tricuspid valve regurgitation. No pulmonary hypertension, estimated pulmonary arterial systolic pressure is 18 mmHg. Pericardium/Pleural There is mild-moderate circumferential pericardial effusion measuring about 1.5 cm. No cardiac tamponade. Inferior Vena Cava Normal inferior vena cava with >50% collapse upon inspiration consistent with normal right atrial pressure, 5 mmHg. Aorta The aortic root size at the sinus of Valsalva is normal. Left Ventricular Outflow Tract Name Value Normal LVOT 2D LVOT Diameter 1.9 cm LVOT Doppler LVOT Pe
[2022-08-09] MEDS: METOPROLOL TARTRATE 25 MG TABLET PO ×3 (00:41→20:21)
[2022-08-09] MEDS: FERROUS SULFATE 324 MG TABLET PO ×2 (00:41→20:21)
[2022-08-09] MEDS: CHOLECALCIFEROL 1,000 UNITS TABLET 2000 UNITS PO ×2 (00:42→20:22)
[2022-08-09] MEDS: APIXABAN 5 MG TABLET PO ×3 (00:42→20:22)
[2022-08-09] MEDS: INSULIN GLARGINE (*BKC) 100 UNITS/ML 15 UNITS SUB-Q ×2 (00:46→20:17)
[2022-08-09] MEDS: ACETAMINOPHEN 325 MG TABLET 650 MG PO ×2 (00:58→16:29)
[2022-08-09 01:31] LABS: Hemoglobin A1C 6.3 % (<5.7)
[2022-08-09] MEDS: LEVOTHYROXINE SODIUM 50 MCG TABLET PO (05:14)
--- NOTE | 2022-08-09 07:19 | ECG_ITS ---
Measurements Intervals [place] Rate: 72 P: [place]: 0 QRS: -13 QRSD: 86 T: -8 QT: 390 QTc: 429 Interpretive Statements ATRIAL FIBRILLATION ANTEROSEPTAL INFARCT, AGE INDETERMINATE INFERIOR INFARCT, AGE INDETERMINATE BORDERLINE ST-T WAVE ABNORMALITY- HIGH LATERAL LEADS BASELINE ARTIFACT- I, II, III, AVR, AVL, AVF ABNORMAL ECG COMPARED TO ECG 08/08/2022 11:13:33 NO SIGNIFICANT CHANGES Electronically Signed On 08-09-2022 7:38:30 CDT by Juancarlos Carrizales D.O.
[2022-08-09 08:27] LABS: Glucose Point of Care 124 mg/dl (65-105)
--- NOTE | 2022-08-09 09:49 | PM.IMPN ---
Progress Note: A&P Assessment and Plan (1) Acute exacerbation of congestive heart failure: Code(s): I50.9 - Heart failure, unspecified Status: Acute Assessment and Plan: Presumably diastolic congestive heart failure. May be related to poorly controlled hypertension or untreated sleep apnea. Cardiac event seems less likely as she has no complaints of chest pain. EKG with afib and possible inferior infarct age undetermined that upon review of previous EKGs is unchanged. She has mild pulmonary edema and lower extremity edema on exam. Continue with IV diuresis with close monitoring of volume status, renal function, and electrolytes. Echocardiogram pending. (2) Difficulty waking: Code(s): G47.8 - Other sleep disorders Status: Acute Assessment and Plan: Patient was reportedly difficult to arouse prior to admission however she was A&O x4 on EMS arrival. She may very well have been sleeping soundly. Brain CT did not show any acute findings. Urinalysis is abnormal though she has a chronic indwelling Guaman catheter and reportedly has been on multiple antibiotics recently for UTI. She is not hypoxic. Unclear etiology. Continue to monitor neuro status. (3) Abnormal urinalysis: Code(s): R82.90 - Unspecified abnormal findings in urine Status: Acute Assessment and Plan: She has a chronic, indwelling Guaman catheter. She reports some stomach discomfort. Will continue IV Rocephin 1 gram Q24 hours for now and adjust per urine culture results. She reportedly has a outpatient Urology appointment on Friday of next week for evaluation of frequent UTIs. No catheter complications noted at this time. (4) Hypertension: Code(s): I10 - Essential (primary) hypertension Status: Chronic Assessment and Plan: Blood pressures have been running in the 180s to 190 systolic. Continue antihypertensives and monitor closely. Adjustment medications as BP tolerates. (5) Chronic anemia: Code(s): D64.9 - Anemia, unspecified Status: Chronic Assessment and Plan: Stable on review of previous labs. (6) Atrial fibrillation: Code(s): I48.91 - Unspecified atrial fibrillation Status: Chronic Assessment and Plan: She is rate controlled. Continue metoprolol and eliquis. 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 (8) Type 2 diabetes mellitus: Code(s): E11.9 - Type 2 diabetes mellitus without complications Status: Chronic Assessment and Plan: Continue basal insulin. Initiate sliding scale insulin, Accu-Cheks, and hypoglycemic protocol. A1c 6.3% and stable. Plan CODE STATUS: FULL CODE Discharge disposition: patient is from home. Antibiotic: day 2 IV Rocephin Estimated LOS: 2-3 days. Time Spent With Patient Time with patient: 25 - 35 minutes Subjective Date/time seen: 08/09/22 09:49 Interval history: She c/o nausea and reports she has not had a bowel movement since last Friday. She denies abd pain or vomiting. Patient has a chronic urinary catheter and reportedly has an outpatient appointment with Urology on Friday of next week for evaluation of frequent urinary tract infections. Review of Systems Review of Systems: All systems reviewed & are unremarkable except as noted in HPI and below Exam Narrative: General: A chronically ill-appearing female sitting up in bed in no acute distress. HEENT: Normocephalic. pupils equal and round. Sclera anicteric. Moist mucous membranes. Oropharynx not visualized. Neck: Supple. Exam limited due to neck circumference. No obvious JVD or bruits. Respiratory: Respirations are nonlabored. Lung sounds diminished bibasilar lobes with fine crackles noted. No wheezing. Cardiovascular: Irregularly irregular and rhythm w
[2022-08-09] MEDS: POTASSIUM CHLORIDE 20 MEQ TABLET.ER PO (10:11)
[2022-08-09] MEDS: FAMOTIDINE 20 MG TABLET 40 MG PO (10:12)
[2022-08-09] MEDS: DOCUSATE SODIUM 100 MG CAPSULE PO (10:12)
[2022-08-09] MEDS: FUROSEMIDE INJ 40 MG/4 ML VIAL IV PUSH ×2 (10:12→16:29)
[2022-08-09] MEDS: ASPIRIN 81 MG ENTERIC TABLET PO (10:12)
[2022-08-09] MEDS: GABAPENTIN 100 MG CAPSULE PO ×2 (10:12→16:29)
[2022-08-09] MEDS: FLUoxetine HCL 20 MG CAPSULE 40 MG PO (10:12)
[2022-08-09] MEDS: TOLNAFTATE 1% POWDER 45 GM BTL 1 APPLIC TOPICAL ×2 (10:13→20:22)
[2022-08-09 10:57] LABS: Anion Gap 3 mmol/L (8-16); Blood Urea Nitrogen 18 mg/dL (7-17); Calcium 8.2 mg/dL (8.4-10.2); Carbon Dioxide 36 mmol/L (22-30); Chloride 99 mmol/L (98-107); Estimated CRCL calculation 76 ml/min; Estimated Glomerular Filt Rate > 60; Glucose 146 mg/dL (65-110); Magnesium 1.8 mg/dL (1.6-2.3); Potassium 3.1 mmol/L (3.4-5.0); Sodium 138 mmol/L (137-145)
[2022-08-09 12:28] LABS: Glucose Point of Care 152 mg/dl (65-105)
[2022-08-09] MEDS: POTASSIUM CHLORIDE 20 MEQ TABLET 60 MEQ PO (14:37)
[2022-08-09] MEDS: MAGNESIUM SULF 2 GM/WATER 50ML 2 GM/50 ML BAG IVPB (14:37)
[2022-08-09] MEDS: BISACODYL 10 MG SUPPOSITORY RECTAL (14:38)
[2022-08-09 17:13] LABS: Glucose Point of Care 182 mg/dl (65-105)
[2022-08-09] MEDS: INSULIN ASPART (*BKC) 100 UNITS/ML SUB-Q (20:17)
[2022-08-09 20:48] LABS: Glucose Point of Care 296 mg/dl (65-105)
[2022-08-10] VITALS (13 sets, daily range): BP systolic 115–165; BP diastolic 65–80; PULSE 66–102; RESP 16–18; TEMP 36.4–37.2; O2SAT 94–98
[2022-08-10 07:06] LABS: Anion Gap 3 mmol/L (8-16); Blood Urea Nitrogen 19 mg/dL (7-17); Carbon Dioxide 37 mmol/L (22-30); Chloride 99 mmol/L (98-107); Estimated CRCL calculation 65 ml/min; Estimated Glomerular Filt Rate > 60; Glucose 121 mg/dL (65-110); Potassium 3.5 mmol/L (3.4-5.0); Sodium 139 mmol/L (137-145)
--- NOTE | 2022-08-10 07:57 | P.PNIM_ITS ---
Progress Note: A&P Assessment and Plan (1) Acute exacerbation of congestive heart failure: Qualifiers: Heart failure type: diastolic Qualified Code(s): I50.33 - Acute on chronic diastolic (congestive) heart failure Code(s): I50.9 - Heart failure, unspecified Status: Acute Assessment and Plan: acute exacerbation of chronic HFpEF. May be related to poorly controlled hypertension or untreated sleep apnea. * EKG with afib and possible inferior infarct age undetermined that upon review of previous EKGs is unchanged. * She has mild pulmonary edema and lower extremity edema on exam. * Continue with IV diuresis- 08/10/22 change to daily lasix 40 mg IV. Weight -3 kg from admission, I/O -6.3L * close monitoring of volume status, renal function, and electrolytes. 08/10 K 3.5 and Mag 1.8- given 60 mEQ PO x1 now and Mag oxide 400 mg PO daily. * Echocardiogram shows mild LVH, diastolic dysfunction, mild to moderate aortic stenosis, mild aortic and mitral regurgitation, mild-moderate circumferential pericardial effusion. H2FPEF score 98.8%. * She would potentially benefit from Farxiga, however, she has frequent UTIs and this would likely cause worsening of this. Consider adding spironolactone. (2) Difficulty waking: Code(s): G47.8 - Other sleep disorders Status: Resolved Assessment and Plan: Patient was reportedly difficult to arouse prior to admission however she was A&O x4 on EMS arrival. * Brain CT did not show any acute findings. * Urinalysis is abnormal though she has a chronic indwelling Guaman catheter and reportedly has been on multiple antibiotics recently for UTI. * She is not hypoxic. * Unclear etiology. * Continue to monitor neuro status. (3) Abnormal urinalysis: Code(s): R82.90 - Unspecified abnormal findings in urine Status: Acute Assessment and Plan: She has a chronic, indwelling Guaman catheter. She reports some stomach discomfort. * treated IV Rocephin 1 gram Q24 hours 08/08-08/09. * Urine culture shows enterococcus species with sensitivities pending. * 08/10/22 Change to Vancomycin IV pharmacy to treat until final sensitivities noted * She reportedly has a outpatient Urology appointment on Friday of next week for evaluation of frequent UTIs. (4) Hypertension: Qualifiers: Hypertension type: primary hypertension Qualified Code(s): I10 - Essential (primary) hypertension Code(s): I10 - Essential (primary) hypertension Status: Chronic Assessment and Plan: Blood pressures have been running in the 180s to 190 systolic on admission. * Continue antihypertensives and monitor closely. * Adjustment medications as BP tolerates. * 08/10/22 BP 115/66 * Stable. (5) Chronic anemia: Code(s): D64.9 - Anemia, unspecified Status: Chronic Assessment and Plan: Stable on review of previous labs. (6) Atrial fibrillation: Qualifiers: Atrial fibrillation type: longstanding persistent Qualified Code(s): I48.11 - Longstanding persistent atrial fibrillation Code(s): I48.91 - Unspecified atrial fibrillation Status: Chronic Assessment and Plan: She is rate controlled. Continue metoprolol and eliquis. (7) Chronic anticoagulation: Code(s): Z79.01 - [facility] (current) use of anticoagulants Status: Chronic Assessment and Plan: Continue Eliquis for stroke prophylaxis. (8) Type 2 diabetes mellitus: Qualifiers: Diabetes mellitus complicati
--- NOTE | 2022-08-10 07:57 | PM.IMPN ---
Progress Note: A&P Assessment and Plan (1) Acute exacerbation of congestive heart failure: Qualifiers: Heart failure type: diastolic Qualified Code(s): I50.33 - Acute on chronic diastolic (congestive) heart failure Code(s): I50.9 - Heart failure, unspecified Status: Acute Assessment and Plan: acute exacerbation of chronic HFpEF. May be related to poorly controlled hypertension or untreated sleep apnea. EKG with afib and possible inferior infarct age undetermined that upon review of previous EKGs is unchanged. She has mild pulmonary edema and lower extremity edema on exam. Continue with IV diuresis- 08/10/22 change to daily lasix 40 mg IV. Weight -3 kg from admission, I/O -6.3L close monitoring of volume status, renal function, and electrolytes. 08/10 K 3.5 and Mag 1.8- given 60 mEQ PO x1 now and Mag oxide 400 mg PO daily. Echocardiogram shows mild LVH, diastolic dysfunction, mild to moderate aortic stenosis, mild aortic and mitral regurgitation, mild-moderate circumferential pericardial effusion. H2FPEF score 98.8%. She would potentially benefit from Farxiga, however, she has frequent UTIs and this would likely cause worsening of this. Consider adding spironolactone. (2) Difficulty waking: Code(s): G47.8 - Other sleep disorders Status: Resolved Assessment and Plan: Patient was reportedly difficult to arouse prior to admission however she was A&O x4 on EMS arrival. Brain CT did not show any acute findings. Urinalysis is abnormal though she has a chronic indwelling Guaman catheter and reportedly has been on multiple antibiotics recently for UTI. She is not hypoxic. Unclear etiology. Continue to monitor neuro status. (3) Abnormal urinalysis: Code(s): R82.90 - Unspecified abnormal findings in urine Status: Acute Assessment and Plan: She has a chronic, indwelling Guaman catheter. She reports some stomach discomfort. treated IV Rocephin 1 gram Q24 hours 08/08-08/09. Urine culture shows enterococcus species with sensitivities pending. 08/10/22 Change to Vancomycin IV pharmacy to treat until final sensitivities noted She reportedly has a outpatient Urology appointment on Friday of next week for evaluation of frequent UTIs. (4) Hypertension: Qualifiers: Hypertension type: primary hypertension Qualified Code(s): I10 - Essential (primary) hypertension Code(s): I10 - Essential (primary) hypertension Status: Chronic Assessment and Plan: Blood pressures have been running in the 180s to 190 systolic on admission. Continue antihypertensives and monitor closely. Adjustment medications as BP tolerates. 08/10/22 BP 115/66 Stable. (5) Chronic anemia: Code(s): D64.9 - Anemia, unspecified Status: Chronic Assessment and Plan: Stable on review of previous labs. (6) Atrial fibrillation: Qualifiers: Atrial fibrillation type: longstanding persistent Qualified Code(s): I48.11 - Longstanding persistent atrial fibrillation Code(s): I48.91 - Unspecified atrial fibrillation Status: Chronic Assessment and Plan: She is rate controlled. Continue metoprolol and eliquis. (7) Chronic anticoagulation: Code(s): Z79.01 - technician terminal and repeater (current) use of anticoagulants Status: Chronic Assessment and Plan: Continue Eliquis for stroke prophylaxis. (8) Type 2 diabetes mellitus: Qualifiers: Diabetes mellitus complication status: without complication Diabetes mellitus superintendent container terminal insulin use: with long-term use Qualified Code(s): E11.9 - Type 2 diabetes mellitus without complications; Z79.4 - [facility] (current) use of insulin Code(s): E11.9 - Type 2 diabetes mellitus without complications Status: Chronic Assessment and Plan: Continue basal insulin. Initiate sliding scale insulin, Accu-Cheks, and hypoglycemic protocol. A1c
[2022-08-10] MEDS: LEVOTHYROXINE SODIUM 50 MCG TABLET PO (08:10)
[2022-08-10 08:21] LABS: Glucose Point of Care 131 mg/dl (65-105)
[2022-08-10] MEDS: FAMOTIDINE 20 MG TABLET 40 MG PO (09:25)
[2022-08-10] MEDS: GABAPENTIN 100 MG CAPSULE PO ×2 (09:25→17:30)
[2022-08-10] MEDS: DOCUSATE SODIUM 100 MG CAPSULE PO ×2 (09:25→20:12)
[2022-08-10] MEDS: ASPIRIN 81 MG ENTERIC TABLET PO (09:25)
[2022-08-10] MEDS: POTASSIUM CHLORIDE 20 MEQ TABLET.ER 60 MEQ PO (09:25)
[2022-08-10] MEDS: METOPROLOL TARTRATE 25 MG TABLET PO ×2 (09:25→20:12)
[2022-08-10] MEDS: FLUoxetine HCL 20 MG CAPSULE 40 MG PO (09:25)
[2022-08-10] MEDS: APIXABAN 5 MG TABLET PO ×2 (09:25→20:12)
[2022-08-10] MEDS: MAGNESIUM OXIDE 400 MG TABLET PO (09:25)
[2022-08-10] MEDS: FUROSEMIDE INJ 40 MG/4 ML VIAL IV PUSH (09:26)
[2022-08-10] MEDS: TOLNAFTATE 1% POWDER 45 GM BTL 1 APPLIC TOPICAL ×2 (09:26→20:16)
[2022-08-10 10:48] LABS: Basophils Absolute Auto 0.1 K/mm3 (0.0-0.1); Basophils Percent Auto 0.8 % (0.2-1.2); Eosinophils Absolute Auto 0.4 K/mm3 (0-0.3); Hematocrit 39.6 % (37.0-47.0); Hemoglobin 12.1 g/dL (12.0-15.0); Immature Granulocyte Absolute 0.02 K/mm3 (0.00-0.031); Immature Granulocyte Percent A 0.3 % (0-0.5); Lymphocytes Percent Auto 12.4 % (18.3-44.2); Mean Corpuscular HGB Conc 30.6 g/dl (32-36); Mean Corpuscular Hemoglobin 26.5 pg (26-34); Mean Corpuscular Volume 86.7 fl (80-100); Mean Platelet Volume 11.5 fl (7.4-10.4); Monocytes Absolute Auto 0.7 K/mm3 (0.1-0.6); Neutrophils Absolute Auto 5.3 K/mm3 (1.3-6.7); Neutrophils Percent Auto 72.5 % (45.5-73.1); Platelet Count Result 199 k/mm3 (150-375); Red Blood Count 4.57 M/mm3 (4.2-5.4); Red Cell Distribution Width 14.9 % (11.5-14.5); White Blood Count 7.2 K/mm3 (4.5-10.0)
[2022-08-10 12:41] LABS: Glucose Point of Care 295 mg/dl (65-105)
[2022-08-10] MEDS: INSULIN ASPART (*BKC) 100 UNITS/ML SUB-Q ×3 (12:54→20:15)
[2022-08-10 17:19] LABS: Glucose Point of Care 223 mg/dl (65-105)
[2022-08-10] MEDS: CARBAMIDE PEROXIDE 6.5% OT SOLN 15 ML BTL 5 DROP EACH EAR (17:30)
[2022-08-10] MEDS: CHOLECALCIFEROL 1,000 UNITS TABLET 2000 UNITS PO (20:12)
[2022-08-10] MEDS: FERROUS SULFATE 324 MG TABLET PO (20:12)
[2022-08-10] MEDS: INSULIN GLARGINE (*BKC) 100 UNITS/ML 15 UNITS SUB-Q (20:15)
[2022-08-10 20:21] LABS: Glucose Point of Care 288 mg/dl (65-105)
[2022-08-11] VITALS (9 sets, daily range): BP systolic 143–152; BP diastolic 61–86; PULSE 65–86; RESP 16–18; TEMP 36.2–36.7; O2SAT 97–100
[2022-08-11 05:01] LABS: Hematocrit 36.7 % (37.0-47.0); Hemoglobin 11.3 g/dL (12.0-15.0); Mean Corpuscular HGB Conc 30.8 g/dl (32-36); Mean Corpuscular Hemoglobin 26.7 pg (26-34); Mean Corpuscular Volume 86.6 fl (80-100); Mean Platelet Volume 11.2 fl (7.4-10.4); Platelet Count Result 196 k/mm3 (150-375); Red Blood Count 4.24 M/mm3 (4.2-5.4); Red Cell Distribution Width 14.7 % (11.5-14.5); White Blood Count 5.6 K/mm3 (4.5-10.0)
[2022-08-11 05:05] LABS: Anion Gap 2 mmol/L (8-16); Blood Urea Nitrogen 17 mg/dL (7-17); Calcium 7.9 mg/dL (8.4-10.2); Carbon Dioxide 37 mmol/L (22-30); Chloride 97 mmol/L (98-107); Estimated CRCL calculation 75 ml/min; Estimated Glomerular Filt Rate > 60; Glucose 163 mg/dL (65-110); Potassium 3.5 mmol/L (3.4-5.0); Sodium 136 mmol/L (137-145)
[2022-08-11] MEDS: LEVOTHYROXINE SODIUM 50 MCG TABLET PO (05:44)
--- NOTE | 2022-08-11 08:07 | P.PNIM_ITS ---
Progress Note: A&P Assessment and Plan (1) Acute exacerbation of congestive heart failure: Qualifiers: Heart failure type: diastolic Qualified Code(s): I50.33 - Acute on chronic diastolic (congestive) heart failure Code(s): I50.9 - Heart failure, unspecified Status: Acute Assessment and Plan: acute exacerbation of chronic HFpEF. May be related to poorly controlled hypertension or untreated sleep apnea. * EKG with afib and possible inferior infarct age undetermined that upon review of previous EKGs is unchanged. * She has mild pulmonary edema and lower extremity edema on exam. * Continue with IV diuresis- 08/10/22 change to daily lasix 40 mg IV. Weight -3 kg from admission, I/O -6.3L * close monitoring of volume status, renal function, and electrolytes. 08/10 K 3.5 and Mag 1.8- given 60 mEQ PO x1 now and Mag oxide 400 mg PO daily. * Echocardiogram shows mild LVH, diastolic dysfunction, mild to moderate aortic stenosis, mild aortic and mitral regurgitation, mild-moderate circumferential pericardial effusion. H2FPEF score 98.8%. * She would potentially benefit from Farxiga, however, she has frequent UTIs and this would likely cause worsening of this. Consider adding spironolactone. * 08/11/22- -5 kg, -6.3L since admission. Change to oral furosemide 40 mg PO daily today. K3.5- give 40 mEQ PO BID today. Repeat BMP and BNP tomorrow. She can be discharged on oral furosemide tomorrow if stable. (2) Difficulty waking: Code(s): G47.8 - Other sleep disorders Status: Resolved Assessment and Plan: Patient was reportedly difficult to arouse prior to admission however she was A&O x4 on EMS arrival. * Brain CT did not show any acute findings. * Urinalysis is abnormal though she has a chronic indwelling Au catheter and reportedly has been on multiple antibiotics recently for UTI. * She is not hypoxic. * Unclear etiology. * Continue to monitor neuro status. (3) Complicated UTI (urinary tract infection): Code(s): N39.0 - Urinary tract infection, site not specified Status: Acute Assessment and Plan: She has a chronic, indwelling Au catheter and suspect UTI secondary to chronic au. She reports some stomach discomfort. * treated IV Rocephin 1 gram Q24 hours 08/08-08/09. * Urine culture shows enterococcus species pansensitive * 08/10/22 Changed to Vancomycin IV pharmacy to treat until final sensitivities noted - given 08/10-08/11 * 08/11/22- No fevers in 24 hours, tmax 99F; change to amoxicillin 500 mg Q8 hours x 7-10 days * She reportedly has a outpatient Urology appointment on Friday of next week for evaluation of frequent UTIs. * Au catheter replaced 08/10/22 (4) Hypertension: Qualifiers: Hypertension type: primary hypertension Qualified Code(s): I10 - Essential (primary) hypertension Code(s): I10 - Essential (primary) hypertension Status: Chronic Assessment and Plan: Blood pressures have been running in the 180s to 190 systolic on admission. * Continue antihypertensives and monitor closely. * Adjustment medications as BP tolerates. * BP 115/66 - 160/80 * Stable. (5) Chronic anemia: Code(s): D64.9 - Anemia, unspecified Status: Chronic Assessment and Plan: Stable on review of previous labs. (6) Atrial fibrillation: Qualifiers: Atrial fibrillation type: longstanding persistent Qualified Code(s): I48.11 - Longstanding persistent atrial fibrillation Code(s): I48.91 - Unspecified atrial fibrillation Status: C
--- NOTE | 2022-08-11 08:07 | PM.IMPN ---
Progress Note: A&P Assessment and Plan (1) Acute exacerbation of congestive heart failure: Qualifiers: Heart failure type: diastolic Qualified Code(s): I50.33 - Acute on chronic diastolic (congestive) heart failure Code(s): I50.9 - Heart failure, unspecified Status: Acute Assessment and Plan: acute exacerbation of chronic HFpEF. May be related to poorly controlled hypertension or untreated sleep apnea. EKG with afib and possible inferior infarct age undetermined that upon review of previous EKGs is unchanged. She has mild pulmonary edema and lower extremity edema on exam. Continue with IV diuresis- 08/10/22 change to daily lasix 40 mg IV. Weight -3 kg from admission, I/O -6.3L close monitoring of volume status, renal function, and electrolytes. 08/10 K 3.5 and Mag 1.8- given 60 mEQ PO x1 now and Mag oxide 400 mg PO daily. Echocardiogram shows mild LVH, diastolic dysfunction, mild to moderate aortic stenosis, mild aortic and mitral regurgitation, mild-moderate circumferential pericardial effusion. H2FPEF score 98.8%. She would potentially benefit from Farxiga, however, she has frequent UTIs and this would likely cause worsening of this. Consider adding spironolactone. 08/11/22- -5 kg, -6.3L since admission. Change to oral furosemide 40 mg PO daily today. K3.5- give 40 mEQ PO BID today. Repeat BMP and BNP tomorrow. She can be discharged on oral furosemide tomorrow if stable. (2) Difficulty waking: Code(s): G47.8 - Other sleep disorders Status: Resolved Assessment and Plan: Patient was reportedly difficult to arouse prior to admission however she was A&O x4 on EMS arrival. Brain CT did not show any acute findings. Urinalysis is abnormal though she has a chronic indwelling Au catheter and reportedly has been on multiple antibiotics recently for UTI. She is not hypoxic. Unclear etiology. Continue to monitor neuro status. (3) Complicated UTI (urinary tract infection): Code(s): N39.0 - Urinary tract infection, site not specified Status: Acute Assessment and Plan: She has a chronic, indwelling Au catheter and suspect UTI secondary to chronic au. She reports some stomach discomfort. treated IV Rocephin 1 gram Q24 hours 08/08-08/09. Urine culture shows enterococcus species pansensitive 08/10/22 Changed to Vancomycin IV pharmacy to treat until final sensitivities noted - given 08/10-08/1108/11/22- No fevers in 24 hours, tmax 99F; change to amoxicillin 500 mg Q8 hours x 7-10 days She reportedly has a outpatient Urology appointment on Friday of next week for evaluation of frequent UTIs. Au catheter replaced 08/10/22 (4) Hypertension: Qualifiers: Hypertension type: primary hypertension Qualified Code(s): I10 - Essential (primary) hypertension Code(s): I10 - Essential (primary) hypertension Status: Chronic Assessment and Plan: Blood pressures have been running in the 180s to 190 systolic on admission. Continue antihypertensives and monitor closely. Adjustment medications as BP tolerates. BP 115/66 - 160/80 Stable. (5) Chronic anemia: Code(s): D64.9 - Anemia, unspecified Status: Chronic Assessment and Plan: Stable on review of previous labs. (6) Atrial fibrillation: Qualifiers: Atrial fibrillation type: longstanding persistent Qualified Code(s): I48.11 - Longstanding persistent atrial fibrillation Code(s): I48.91 - Unspecified atrial fibrillation Status: Chronic Assessment and Plan: She is rate controlled. Continue metoprolol and eliquis. (7) Chronic anticoagulation: Code(s): Z79.01 - alf (current) use of anticoagulants Status: Chronic Assessment and Plan: Continue Eliquis for stroke prophylaxis. (8) Type 2 diabetes mellitus: Qualifiers: Diabetes mellitus complication status: without compl
[2022-08-11] MEDS: polyethylene glycoL 3350 17 GM POWD.PACK PO (08:42)
[2022-08-11] MEDS: ASPIRIN 81 MG ENTERIC TABLET PO (08:42)
[2022-08-11] MEDS: FLUoxetine HCL 20 MG CAPSULE 40 MG PO (08:42)
[2022-08-11] MEDS: FAMOTIDINE 20 MG TABLET 40 MG PO (08:42)
[2022-08-11] MEDS: DOCUSATE SODIUM 100 MG CAPSULE PO ×2 (08:42→21:29)
[2022-08-11] MEDS: GABAPENTIN 100 MG CAPSULE PO ×2 (08:42→17:26)
[2022-08-11] MEDS: TOLNAFTATE 1% POWDER 45 GM BTL 1 APPLIC TOPICAL ×2 (08:43→21:32)
[2022-08-11] MEDS: METOPROLOL TARTRATE 25 MG TABLET PO ×2 (08:43→21:29)
[2022-08-11] MEDS: CARBAMIDE PEROXIDE 6.5% OT SOLN 15 ML BTL 5 DROP EACH EAR ×2 (08:43→17:26)
[2022-08-11] MEDS: MAGNESIUM OXIDE 400 MG TABLET PO (08:43)
[2022-08-11] MEDS: APIXABAN 5 MG TABLET PO ×2 (08:44→21:29)
[2022-08-11 08:46] LABS: Glucose Point of Care 108 mg/dl (65-105)
--- NOTE | 2022-08-11 08:54 | PC.NURSE ---
Called pharmacy and left message for 0900 PO lasix
[2022-08-11] MEDS: FUROSEMIDE 40 MG TABLET PO (09:40)
[2022-08-11 11:58] LABS: Glucose Point of Care 185 mg/dl (65-105)
[2022-08-11] MEDS: AMOXICILLIN 500 MG CAPSULE PO ×2 (13:13→21:29)
[2022-08-11] MEDS: ACETAMINOPHEN 325 MG TABLET 650 MG PO ×2 (15:06→21:28)
[2022-08-11 16:52] LABS: Magnesium 2.1 mg/dL (1.6-2.3)
[2022-08-11 17:11] LABS: Glucose Point of Care 211 mg/dl (65-105)
[2022-08-11] MEDS: POTASSIUM CHLORIDE 20 MEQ TABLET.ER 40 MEQ PO (17:26)
[2022-08-11] MEDS: INSULIN ASPART (*BKC) 100 UNITS/ML SUB-Q (17:26)
[2022-08-11 20:29] LABS: Glucose Point of Care 165 mg/dl (65-105)
[2022-08-11] MEDS: CHOLECALCIFEROL 1,000 UNITS TABLET 2000 UNITS PO (21:28)
[2022-08-11] MEDS: FERROUS SULFATE 324 MG TABLET PO (21:29)
[2022-08-11] MEDS: INSULIN GLARGINE (*BKC) 100 UNITS/ML 15 UNITS SUB-Q (21:30)
[2022-08-12 05:10] VITALS: BP 140/57; PULSE 76; RESP 18; TEMP 37; O2SAT 100
[2022-08-12 05:38] LABS: Basophils Absolute Auto 0.1 K/mm3 (0.0-0.1); Basophils Percent Auto 1.6 % (0.2-1.2); Eosinophils Absolute Auto 0.4 K/mm3 (0-0.3); Eosinophils Percent Auto 8.9 % (0-4.4); Hematocrit 37.4 % (37.0-47.0); Hemoglobin 11.2 g/dL (12.0-15.0); Immature Granulocyte Absolute 0.01 K/mm3 (0.00-0.031); Immature Granulocyte Percent A 0.2 % (0-0.5); Lymphocytes Absolute Auto 1.07 K/mm3 (0.9-3.2); Lymphocytes Percent Auto 21.5 % (18.3-44.2); Mean Corpuscular HGB Conc 29.9 g/dl (32-36); Mean Corpuscular Volume 86.8 fl (80-100); Monocytes Absolute Auto 0.5 K/mm3 (0.1-0.6); Monocytes Percent Auto 9.5 % (2.6-8.5); Neutrophils Absolute Auto 2.9 K/mm3 (1.3-6.7); Neutrophils Percent Auto 58.3 % (45.5-73.1); Platelet Count Result 199 k/mm3 (150-375); Red Blood Count 4.31 M/mm3 (4.2-5.4); Red Cell Distribution Width 14.6 % (11.5-14.5)
[2022-08-12 05:59] LABS: NT Pro B Type Natriuretic Pept 1560 pg/mL (19.9-100)
[2022-08-12 06:01] LABS: Anion Gap 0 mmol/L (8-16); Blood Urea Nitrogen 18 mg/dL (7-17); Carbon Dioxide 38 mmol/L (22-30); Chloride 100 mmol/L (98-107); Estimated CRCL calculation 74 ml/min; Estimated Glomerular Filt Rate > 60; Glucose 106 mg/dL (65-110); Potassium 3.9 mmol/L (3.4-5.0); Sodium 138 mmol/L (137-145)
[2022-08-12] MEDS: AMOXICILLIN 500 MG CAPSULE PO ×2 (06:09→16:27)
[2022-08-12] MEDS: LEVOTHYROXINE SODIUM 50 MCG TABLET PO (06:09)
[2022-08-12 06:49] LABS: Burr Cells 1+ (NORMAL); Platelet Estimate Adequate (Adequate); Schistocytes None Seen (NORMAL)
[2022-08-12 08:33] LABS: Glucose Point of Care 116 mg/dl (65-105)
[2022-08-12] MEDS: FAMOTIDINE 20 MG TABLET 40 MG PO (08:56)
[2022-08-12] MEDS: POTASSIUM CHLORIDE 20 MEQ TABLET.ER 40 MEQ PO (08:56)
[2022-08-12] MEDS: FUROSEMIDE 40 MG TABLET PO (08:56)
[2022-08-12] MEDS: GABAPENTIN 100 MG CAPSULE PO (08:56)
[2022-08-12] MEDS: DOCUSATE SODIUM 100 MG CAPSULE PO (08:56)
[2022-08-12] MEDS: polyethylene glycoL 3350 17 GM POWD.PACK PO (08:56)
[2022-08-12] MEDS: APIXABAN 5 MG TABLET PO (08:56)
[2022-08-12 08:57] VITALS: PULSE 80
[2022-08-12] MEDS: METOPROLOL TARTRATE 25 MG TABLET PO (08:57)
[2022-08-12] MEDS: ASPIRIN 81 MG ENTERIC TABLET PO (08:57)
[2022-08-12] MEDS: MAGNESIUM OXIDE 400 MG TABLET PO (08:57)
[2022-08-12] MEDS: FLUoxetine HCL 20 MG CAPSULE 40 MG PO (08:58)
[2022-08-12] MEDS: TOLNAFTATE 1% POWDER 45 GM BTL 1 APPLIC TOPICAL (08:59)
[2022-08-12] MEDS: CARBAMIDE PEROXIDE 6.5% OT SOLN 15 ML BTL 5 DROP EACH EAR (08:59)
[2022-08-12 09:00] VITALS: BP 165/80; PULSE 80; RESP 14; O2SAT 100
[2022-08-12] MEDS: SPIRONOLACTONE 12.5 MG TABLET PO (10:48)
[2022-08-12 12:19] LABS: Glucose Point of Care 185 mg/dl (65-105)
[2022-08-12 14:28] VITALS: BP 157/99; PULSE 86; RESP 18; TEMP 36.7; O2SAT 94
--- NOTE | 2022-08-12 14:46 | PM.DS ---
DS: Admitting Diagnosis Discharge Date 08/12/2022 Admitting Diagnosis Difficulty waking Acute exacerbation of congestive heart failure Abnormal urinalysis Essential (primary) hypertension Chronic anemia Chronic Atrial fibrillation Type 2 diabetes mellitus without complications H/O stroke DS: Discharge Diagnosis Discharge Diagnosis (1) Acute exacerbation of congestive heart failure: Qualifiers: Heart failure type: diastolic Qualified Code(s): I50.33 - Acute on chronic diastolic (congestive) heart failure Code(s): I50.9 - Heart failure, unspecified Status: Acute Assessment and Plan: acute exacerbation of chronic HFpEF. May be related to poorly controlled hypertension or untreated sleep apnea. EKG with afib and possible inferior infarct age undetermined that upon review of previous EKGs is unchanged. She has mild pulmonary edema and lower extremity edema on exam. Treated with IV diuresis- 08/10/22 change to daily lasix 40 mg IV. Weight -3 kg from admission, I/O -6.3L close monitoring of volume status, renal function, and electrolytes. 08/10 K 3.5 and Mag 1.8- given 60 mEQ PO x1 now and Mag oxide 400 mg PO daily. Echocardiogram showed mild LVH, diastolic dysfunction, mild to moderate aortic stenosis, mild aortic and mitral regurgitation, mild-moderate circumferential pericardial effusion. H2FPEF score 98.8%. She would potentially benefit from Farxiga, however, given frequent UTIs and this would likely cause worsening of this. 08/11/22- -5 kg, -6.3L since admission. Change to oral furosemide 40 mg PO daily. K3.5- given 40 mEQ PO BID today. 08/12/22 low dose spironolactone 12.5 mg PO daily added. Discussed with daughter outpatient follow up with Senior Maintenance Technician. (2) Difficulty waking: Code(s): G47.8 - Other sleep disorders Status: Resolved Assessment and Plan: Patient was reportedly difficult to arouse prior to admission however she was A&O x4 on EMS arrival. Likely multifactorial from CHF exacerbation and infection. Brain CT did not show any acute findings. UA abnormal and patient recently treated with multiple antibiotics. Patient is not hypoxic. Continue to monitor neuro status. (3) Complicated UTI (urinary tract infection): Code(s): N39.0 - Urinary tract infection, site not specified Status: Acute Assessment and Plan: She has a chronic, indwelling Au catheter and suspect UTI secondary to chronic au. She reports some stomach discomfort. treated IV Rocephin 1 gram Q24 hours 08/08-08/09. Urine culture shows enterococcus species pansensitive 08/10/22 Changed to Vancomycin IV pharmacy to treat until final sensitivities noted - given 08/10-08/1108/11/22- No fevers in 24 hours, tmax 99F; change to amoxicillin 500 mg Q8 hours x 7 days Nursing reported patient had outpatient Urology appointment the following week for frequent UTIs. At discharge, discussion with daughter indicated this appointment had not been made due to hospitalization. As patient did not appear to have au complications and oral antibiotics for microbial coverage were identified, outpatient Uro evaluation still appears appropriate. Au catheter replaced 08/10/22 (4) Hypertension: Qualifiers: Hypertension type: primary hypertension Qualified Code(s): I10 - Essential (primary) hypertension Code(s): I10 - Essential (primary) hypertension Status: Chronic Assessment and Plan: Blood pressures have been running in the 180s to 190 systolic on admission. Continue antihypertensives and monitor closely. Adjustment medications as BP tolerates. BP 115/66 - 160/80 Stable. (5) Chronic anemia: Code(s): D64.9 - Anemia, unspecified Status: Chronic Assessment and Plan: Stable on review of previous labs. (6) Atrial fibrillation: Qualifiers: Atrial fibrillation type: longstanding persistent Qualified Cod
--- NOTE | 2022-08-12 14:49 | PCCCNOTE ---
On 08/12/22, the student, Bindu Newman, provided care and completed [facility] documentation on this patient. I have reviewed the student's documentation and agree with the findings.
[2022-08-12 17:15] LABS: Magnesium 2.1 mg/dL (1.6-2.3)
--- NOTE | 2022-08-12 17:25 | ADMGEN ---
This patient, Kristy Cook, was admitted to 2 Medical Room 240-01. Patient/family oriented to hospital policies and general routines including ID bracelet, bed and alarms, visiting hours, pain management, procedures, bathroom and other care routines, personal items, smoking policy, room service/diet, and visiting hours. Information on how to activate the Rapid Response Team has been discussed. Patient/Family are encouraged to report perceived risks to care and to ask questions if they do not understand what they are told or what they should do.
== END 2022-08-12 16:15 | disposition home health service (06) | DRG 291 ==
LOC: ANHED 12:33 → ANH2MED 15:36
PROVIDERS: Physician Assistant; Admitting Provider Family Medicine; Emergency Provider Physician Assistant; PCP Internal Medicine; Visit Provider Nurse Practitioner Family
DX: I11.0 Hypertensive heart disease with heart failure (principal); I50.33 Acute on chronic diastolic (congestive) heart failure; T83.518A Infection and inflammatory reaction due to other urinary catheter, initial encounter; N39.0 Urinary tract infection, site not specified; I69.354 Hemiplegia and hemiparesis following cerebral infarction affecting left non-dominant side; B95.2 Enterococcus as the cause of diseases classified elsewhere; D64.9 Anemia, unspecified; E78.5 Hyperlipidemia, unspecified; E11.51 Type 2 diabetes mellitus with diabetic peripheral angiopathy without gangrene; E03.9 Hypothyroidism, unspecified; G47.33 Obstructive sleep apnea (adult) (pediatric); I48.91 Unspecified atrial fibrillation; M19.012 Primary osteoarthritis, left shoulder; Z98.49 Cataract extraction status, unspecified eye; Z96.1 Presence of intraocular lens; Z87.891 Personal history of nicotine dependence; Z74.01 Bed confinement status; Z79.01 Long term (current) use of anticoagulants; Z79.4 Long term (current) use of insulin; Z79.82 Long term (current) use of aspirin
CPT/HCPCS: 36415; 70450; 71045; 73030; 74177; 80048; 80053; 81001; 82948; 83036; 83735; 83880; 84443; 84484; 85025; 85027; 85610; 85730; 86850; 86900; 86901; 87086; 87147; 87181; 87186; 93005; 93306; 93970; 96374; 99285; A9270; G0378; J0360; J0696; J1815; J1940; J3370; J3475; Q9967

== ENCOUNTER 2022-08-19 13:07 | Emergency (ER) | payer MEDICARE, BC, SELFPAY ==
[2022-08-19] VITALS (21 sets, daily range): BP systolic 125–167; BP diastolic 56–131; PULSE 69–99; RESP 11–28; TEMP 36.3; O2SAT 95–99
--- NOTE | ~2022-08-19 | CT_ITS ---
EXAMINATION: CT brain wo con DATE: 08/19/2022 13:35 INDICATION: Altered mental status. TECHNIQUE: Computed tomography (CT) of the head was performed without intravenous contrast. The mA wa s adjusted according to patient size. Iterative reconstruction technique was employed. The dose-lengt h product was 681.00 mGy-cm. COMPARISON: Head CT 08/08/2022 FINDINGS: There is a large old infarct involving the right frontal, temporal, and parietal lobes, rig ht insula, right basal ganglia, and right thalamus in the expected distribution of right middle cereb ral artery. There is an old infarct involving the left internal capsule. There are scattered areas of low attenuation in the cerebral white matter. There is no intracranial hemorrhage, acute infarction, or abnormal intracranial mass lesion. There is ex vacuo dilatation of right lateral ventricle. There are likely changes of ocular lens replacement surgeries. There is mild mucosal thickening in the par anasal sinuses. The mastoid air cells are normal. There is cerumen in the external auditory canals. IMPRESSION: 1. Large old infarct in the expected distribution of right middle cerebral artery. 2. Old infarct in the left internal capsule. 3. Stable moderate nonspecific cerebral white matter disease, which likely represents chronic small v essel ischemic disease. Reviewed, dictated and finalized at location A. IMPRESSION: 1. Large old infarct in the expected distribution of right middle cerebral yuly ry. 2. Old infarct in the left internal capsule. 3. Stable moderate nonspecific cerebral white matter disease, which likely repr esents chronic small vessel ischemic disease.
--- NOTE | ~2022-08-19 | XR_ITS ---
EXAMINATION: XR chest 1V portable DATE: 08/19/2022 13:41 INDICATION: Left hemiparesis. TECHNIQUE: A single frontal view of the chest was obtained. COMPARISON: Chest single view 08/08/2022, CT abdomen and pelvis 08/08/2022, chest CT 10/31/2020 FINDINGS: There is no pneumonia, pleural effusion, or pneumothorax. Cardiomegaly is noted. Main pulmo nary artery is enlarged, consistent with pulmonary arterial hypertension. IMPRESSION: 1. Cardiomegaly. Reviewed, dictated and finalized at location A. IMPRESSION: 1. Cardiomegaly.
--- NOTE | 2022-08-19 13:12 | ECG_ITS ---
Measurements Intervals [place] Rate: 74 P: NV: 0 QRS: -25 QRSD: 86 T: 1 QT: 395 QTc: 440 Interpretive Statements ATRIAL FIBRILLATION VOLTAGE CRITERIA FOR LVH POOR R WAVE PROGRESSION, CONSIDER ANTERIOR INFARCT INFERIOR INFARCT, AGE INDETERMINATE BASELINE ARTIFACT- I, II, AVR, AVL, AVF, V1, V4-V6 ABNORMAL ECG COMPARED TO ECG 08/09/2022 07:32:51 NO SIGNIFICANT CHANGES Electronically Signed On 08-19-2022 13:52:18 CDT by Juancarlos Carrizales D.O.
--- NOTE | 2022-08-19 13:14 | ED.AMS ---
HPI - Altered Mental Status General Chief Complaint: Altered Mental Status Stated Complaint: AMS Time Seen by Provider: 08/19/22 13:14 Source: patient History of Present Illness HPI narrative: 81 years old white female came to the emergency room by ambulance from home with no symptoms. Patient's daughter that is telling me that patient is not eating or drinking enough over the last, to 3 days. Patient shakes her head agreeing with that complaint. When I asked the patient why and not drinking or eating enough, she reports depressed. She denies any fever, chills, nausea, vomiting, chest pain, shortness of breath, headache, back pain or abdominal pain. Patient had Gu[place] catheter in, replaced August 18, 2022.. Patient is bedridden because of inability to stand up with left hemiplegia. Patient finished a course of antibiotic for urinary tract infection recently. Patient is on aspirin and Eliquis Related Data Home Medications Medication Instructions Recorded Confirmed apixaban 5 mg tablet (Eliquis) 5 mg PO BID 10/31/20 08/08/22 aspirin 81 mg tablet 81 mg PO DAILY 10/31/20 08/08/22 atorvastatin 10 mg tablet 40 mg PO QHS 10/31/20 08/08/22 baclofen 10 mg tablet 10 mg PO BID 10/31/20 08/08/22 famotidine 40 mg tablet 40 mg PO QAM 10/31/20 08/08/22 fluoxetine 40 mg capsule 40 mg PO QAM 10/31/20 08/08/22 gabapentin 100 mg capsule 100 mg PO BID 10/31/20 08/08/22 insulin glargine 100 unit/mL (3 15 unit subcut HS 10/31/20 08/08/22 mL) subcutaneous pen (Lantus Solostar U-100 Insulin) levothyroxine 50 mcg tablet 50 mcg PO QAM 10/31/20 08/08/22 metoprolol tartrate 25 mg tablet 25 mg PO BID 10/31/20 08/08/22 polyethylene glycol 3350 17 17 g PO DAILY PRN Constipation 10/31/20 08/08/22 gram/dose oral powder ramelteon 8 mg tablet 8 mg PO HS 10/31/20 08/08/22 cholecalciferol (vitamin D3) 50 2,000 unit PO QHS 08/08/22 08/08/22 mcg (2,000 unit) tablet ferrous sulfate 325 mg (65 mg 324 mg PO QHS 08/08/22 08/08/22 iron) tablet metformin 1,000 mg tablet 500 mg PO QHS 08/08/22 08/08/22 nystatin 100,000 unit/gram topical 1 applic topical BID 08/08/22 08/08/22 powder (Nystop) Allergies Allergy/AdvReac Type Severity Reaction Status Date / Time No Known Allergies Allergy Verified 08/19/22 14:09 Review of Systems Review of Systems: All systems reviewed & are unremarkable except as noted in HPI and below PMFSH Past Medical History Medical History (HFpEF) heart failure with preserved ejection fraction Atrial fibrillation Cerebrovascular accident (02/2020) Residual left hemiplegia. Chronic anemia Chronic anticoagulation Essential hypertension Hyperlipidemia Hypothyroidism Obstructive sleep apnea Intolerant to CPAP Peripheral artery disease Type 2 diabetes mellitus Surgical History Surgical History History of cataract extraction with lens replacement History of right-sided carotid endarterectomy Family History Family History Father Heart disease Mother Heart disease Social History Social History Social History: Surrogate medical decision maker: Lois Gomez, daughter. Code status: Full code. Smoking packs per day: 1 Smoking cigarettes per day: 20.0 Years smoked: 44 Smoking pack-years: 44.00 Smoking status: Former smoker Alcohol intake: never Substance use: never Substance use type: does not use Lack of Transportation: No Lack of Food: Never True Current Housing: I Have Housing Concerned About Future Housing: No Difficulty Paying Gas/Electric Bills: No Difficulty Paying for Meds: No Currently Unemployed: No Education: High School Diploma/GED Difficulty w/ Childcare or Family Care: No Living arrangements: with family Additional living arrangements comments: Patient tells me
[2022-08-19 13:29] LABS: Basophils Percent Auto 0.3 % (0.2-1.2); Eosinophils Absolute Auto 0.3 K/mm3 (0-0.3); Eosinophils Percent Auto 4.4 % (0-4.4); Hematocrit 43.8 % (37.0-47.0); Hemoglobin 13.6 g/dL (12.0-15.0); Immature Granulocyte Absolute 0.02 K/mm3 (0.00-0.031); Immature Granulocyte Percent A 0.3 % (0-0.5); Lymphocytes Absolute Auto 0.85 K/mm3 (0.9-3.2); Lymphocytes Percent Auto 11.6 % (18.3-44.2); Mean Corpuscular HGB Conc 31.1 g/dl (32-36); Mean Corpuscular Hemoglobin 26.6 pg (26-34); Mean Corpuscular Volume 85.5 fl (80-100); Mean Platelet Volume 11.2 fl (7.4-10.4); Monocytes Absolute Auto 0.4 K/mm3 (0.1-0.6); Monocytes Percent Auto 5.5 % (2.6-8.5); Neutrophils Absolute Auto 5.7 K/mm3 (1.3-6.7); Neutrophils Percent Auto 77.9 % (45.5-73.1); Platelet Count Result 242 k/mm3 (150-375); Red Blood Count 5.12 M/mm3 (4.2-5.4); Red Cell Distribution Width 15.6 % (11.5-14.5); White Blood Count 7.3 K/mm3 (4.5-10.0)
[2022-08-19 13:36] LABS: INR 1.5; Prothrombin Time 18.7 Seconds (11.1-14.7)
[2022-08-19 13:56] LABS: Partial Thromboplastin Time 33.5 SECONDS (22.3-36.8)
[2022-08-19 14:00] LABS: Alanine Aminotransferase 20 U/L (6-35); Albumin Level 3.9 g/dL (3.5-5.1); Alkaline Phosphatase 111 U/L (38-126); Anion Gap 4 mmol/L (8-16); Aspartate Amino Transferase 29 U/L (14-36); Bilirubin,Total 0.8 mg/dL (0.2-1.3); Blood Urea Nitrogen 38 mg/dL (7-17); Calcium 8.7 mg/dL (8.4-10.2); Carbon Dioxide 36 mmol/L (22-30); Chloride 101 mmol/L (98-107); Estimated CRCL calculation 60 ml/min; Estimated Glomerular Filt Rate > 60; Glucose 138 mg/dL (65-110); Potassium 4.6 mmol/L (3.4-5.0); Sodium 141 mmol/L (137-145)
[2022-08-19 14:10] LABS: Appearance Urine Cloudy (Clear); Bacteria Urine None Seen /hpf; Bilirubin Urine Negative (Negative); Blood Urine 2+ (Negative); Budding Yeast Urine Present /hpf; Color Urine Yellow (Yellow); Glucose Urine UA Negative (Negative); Hyaline Casts Urine Present /lpf; Ketones Urine Negative (Negative); Leukocyte Esterase Ur 3+ LEU/UL (Negative); Nitrate Urine Negative (Negative); Protein Urine Trace mg/dL (Negative); RBC Urine 51-100 /hpf (0-2); Specific Grav Ur 1.013 (1.001-1.035); Squamous Epithelial Cell Urine None seen /hpf (Few); WBC Urine >100 /hpf
[2022-08-19 14:11] LABS: Add Urine Microscopic? YES
[2022-08-19 14:12] LABS: Troponin I < 0.012 ng/mL (0.000-0.034)
== END 2022-08-19 15:25 | disposition home or self-care (01) ==
PROVIDERS: Emergency Medicine; Emergency Provider Emergency Medicine; PCP Internal Medicine
DX: F32.2 Major depressive disorder, single episode, severe without psychotic features (principal); N39.0 Urinary tract infection, site not specified; Z96.0 Presence of urogenital implants; I48.91 Unspecified atrial fibrillation; I69.954 Hemiplegia and hemiparesis following unspecified cerebrovascular disease affecting left non-dominant side; I11.0 Hypertensive heart disease with heart failure; I50.30 Unspecified diastolic (congestive) heart failure; E11.51 Type 2 diabetes mellitus with diabetic peripheral angiopathy without gangrene; I73.9 Peripheral vascular disease, unspecified; E78.5 Hyperlipidemia, unspecified; E03.9 Hypothyroidism, unspecified; G47.33 Obstructive sleep apnea (adult) (pediatric); D64.9 Anemia, unspecified; Z96.1 Presence of intraocular lens; Z87.891 Personal history of nicotine dependence; Z79.01 Long term (current) use of anticoagulants; Z79.84 Long term (current) use of oral hypoglycemic drugs; Z79.4 Long term (current) use of insulin; Z79.82 Long term (current) use of aspirin; Z98.49 Cataract extraction status, unspecified eye; Z74.01 Bed confinement status; R94.31 Abnormal electrocardiogram [ECG] [EKG]
CPT/HCPCS: 36415; 70450; 71045; 80053; 81001; 84443; 84484; 85025; 85610; 85730; 87086; 93005; 99284